=== PATIENT | male | born 2000 | race Caucasian/White ===

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

== ENCOUNTER 2019-02-24 08:16 | Emergency (ER) | payer MEDICAID, OTHER ==
[~2019-02-24] VITALS: Ht 172.7 cm; Wt 59.1 kg
[2019-02-24 09:37] VITALS: BP 135/76
[2019-02-24] MEDS ORDERED: DOXY100C43 PO (10:00)
== END 2019-02-24 10:31 | disposition home or self-care (01) ==
LOC: ER 08:17
DX: L03.012 Cellulitis of left finger (principal); J45.909 Unspecified asthma, uncomplicated; E11.9 Type 2 diabetes mellitus without complications; F12.90 Cannabis use, unspecified, uncomplicated; Z79.4 Long term (current) use of insulin; Z79.899 Other long term (current) drug therapy
CPT/HCPCS: 73140; 99283

== ENCOUNTER 2019-06-04 05:24 | Inpatient (IN) | payer MEDICAID, OTHER ==
[~2019-06-04] VITALS: Ht 172.7 cm; Wt 58.2 kg
[2019-06-04] MEDS ORDERED: normal saline 1000ml 1,000 ML IVB ONE (05:30)
[2019-06-04] MEDS ORDERED: ondansetron/PF 4mg/2ml inj IV STA (05:30)
[2019-06-04] MEDS ORDERED: normal saline 1000ml 1,000 ML IV ONE ×3 (05:40→06:10)
--- NOTE | 2019-06-04 06:07 | NUR ---
PT HAS 2 PATENT IV'S BUT NEITHER WILL PULL FOR BLOOD DRAW. PT APPEARS DEHYDRATED AND VEIN COLLAPSES WHEN TRYING TO PULL BLOOD. WILL ATTEMPT TO REDRAW AFTER PT HAS BEEN HYDRATED. PT HAS FLUIDS INFUSING ON PRESSURE BAG AT THIS TIME.
[2019-06-04] MEDS ORDERED: normal saline 1000ml 1,000 ML IV SCH ×2 (06:10→09:37)
[2019-06-04] MEDS ORDERED: insulin regular, human 10 units/0.1 ml syringe IV ONE (06:10)
[2019-06-04 06:38] LABS: BASOPHILS # (AUTO) 0.1 X10'3 (0-0.2); BASOPHILS % (AUTO) 0.5 % (0-1); EOSINOPHILS % (AUTO) 0.1 % (0-6); HEMATOCRIT 45.8 % (42.0-52.0); HEMOGLOBIN 15.5 g/dl (14.0-17.9); LYMPHOCYTES # (AUTO) 3.5 X10'3 (1.1-4.8); LYMPHOCYTES % (AUTO) 18.7 % (21-51); MEAN CORPUSCULAR HEMOGLOBIN 32.3 PG (27.0-31.0); MEAN CORPUSCULAR HGB CONC 33.8 g/dL (33.0-36.5); MEAN CORPUSCULAR VOLUME 95.6 FL (78-98); MEAN PLATELET VOLUME 8.8 FL (7.4-10.4); MONOCYTES % (AUTO) 5.3 % (2-12); NEUTROPHILS # (AUTO) 14.2 X10'3 (1.8-7.7); NEUTROPHILS % (AUTO) 75.4 % (42-75); PLATELET COUNT 405 X10'3 (140-440); RED BLOOD COUNT 4.79 X10'6 (4.70-6.10); RED CELL DISTRIBUTION WIDTH 13.2 % (11.5-14.5); WHITE BLOOD COUNT 18.8 X10'3 (4.5-11.0)
[2019-06-04] MEDS ORDERED: dextrose 50%-water 50ml dispensing syringe IV PRN (06:50)
[2019-06-04 06:54] LABS: ALANINE AMINOTRANSFERASE 22 U/L (12-78); ALBUMIN 2.7 G/DL (3.4-5.0); ALBUMIN/GLOBULIN RATIO 0.8 (1.1-1.5); ALKALINE PHOSPHATASE 128 IU/L (20-180); ANION GAP 28 (8-16); ASPARTATE AMINO TRANSFERASE 12 U/L (10-37); BILIRUBIN,TOTAL 0.5 MG/DL (0.1-1.0); BLOOD UREA NITROGEN 21 MG/DL (7-18); BUN/CREATININE RATIO 17.4 (5.4-32.0); CALCIUM 7.9 MG/DL (8.5-10.1); CHLORIDE 97 MMOL/L (99-107); CREATININE 1.21 MG/DL (0.60-1.10); GLUCOSE 477 MG/DL (70-104); LIPASE < 50 U/L (73-393); SODIUM 135 MMOL/L (135-145); TOTAL PROTEIN 6.1 G/DL (6.4-8.2); eGFR 77 ML/MIN
[2019-06-04 06:55] LABS: TOTAL CARBON DIOXIDE 10.4 MMOL/L (24-32)
[2019-06-04] MEDS: insulin regular, human 100 UNIT in normal saline 100ml IV soln 99 ML IV SCH ×4 (07:15→12:26)
[2019-06-04 07:22] LABS: CLARITY,URINE SLIGHTLY CLOUDY (Clear); COLOR,URINE STRAW (Yellow); GLUCOSE, URINE >=1000 mg/dl (Neg); KETONES,URINE >=80 mg/dl (Neg); LEUKOCYTE ESTERASE ,URINE NEGATIVE (Neg); NITRITES, URINE NEGATIVE (Neg); OCCULT BLOOD,URINE TRACE-LYSED (Neg); PH,URINE 5.5 (4.8-8.0); PROTEIN,URINE NEGATIVE (Neg); UROBILINOGEN,URINE 0.2 E.U/dL (0.2-1.0)
[2019-06-04 07:23] LABS: UA COLLECTION TYPE URINAL
[2019-06-04 07:28] LABS: BACTERIA,URINE FEW /HPF (Neg); FINE GRANULAR CAST 0-3 /LPF (NEGATIVE); MUCUS STRANDS FEW /LPF (Neg); SQUAMOUS EPITHELIAL CELL,UR FEW /LPF (FEW)
[2019-06-04 07:29] LABS: RBC,URINE 0-2 /HPF (0-2)
[2019-06-04 07:30] LABS: URINE AMPHETAMINE SCREEN NEGATIVE (Neg); URINE BARBITUATE SCREEN NEGATIVE (Neg); URINE BENZODIAZEPINES SCREEN NEGATIVE (Neg); URINE CANNABINOID SCREEN POSITIVE (Neg); URINE COCAINE SCREEN NEGATIVE (Neg); URINE METHADONE SCREEN NEGATIVE (Neg); URINE OPIATE SCREEN NEGATIVE (Neg); URINE PHENCYCLIDINE SCREEN NEGATIVE (Neg); YEAST MODERATE /HPF (NEGATIVE)
[2019-06-04 09:25] LABS: ALBUMIN 2.9 G/DL (3.4-5.0); ANION GAP 23 (8-16); BLOOD UREA NITROGEN 17 MG/DL (7-18); BUN/CREATININE RATIO 14.8 (5.4-32.0); CALCIUM 7.8 MG/DL (8.5-10.1); CHLORIDE 101 MMOL/L (99-107); CREATININE 1.15 MG/DL (0.60-1.10); GLUCOSE 313 MG/DL (70-104); POTASSIUM 4.3 MMOL/L (3.5-5.1); SODIUM 136 MMOL/L (135-145); eGFR 82 ML/MIN
[2019-06-04 09:28] LABS: TOTAL CARBON DIOXIDE 12.5 MMOL/L (24-32)
[2019-06-04] MEDS ORDERED: insulin regular, DKA only 100 UNIT in normal saline 100ml IV soln 99 ML IV SCH ×2 (09:37)
[2019-06-04] MEDS ORDERED: potassium CL 20mEq in D5-1/2NS 1,000 ML IV PRN (09:37)
[2019-06-04] MEDS ORDERED: potassium Cl 20 mEq SR tablet PO PRN ×2 (09:40)
[2019-06-04] MEDS ORDERED: magnesium hydroxide 30ml (MOM) UD suspension PO PRN (09:40)
[2019-06-04] MEDS ORDERED: sodium phosphate inj. 30 MMOL in dextrose 5%-water 250 ML IV PRN (09:40)
[2019-06-04] MEDS ORDERED: mag hydrox/Alum hydrox/simeth 30ml oral suspension PO PRN (09:40)
[2019-06-04] MEDS ORDERED: potassium CL 10mEq/100ml bag 100 ML IV PRN ×2 (09:40)
[2019-06-04] MEDS ORDERED: K and/or MAG REPLACEMENT MC SCH (09:40)
[2019-06-04] MEDS ORDERED: acetaminophen 325mg tablet PO PRN (09:40)
[2019-06-04] MEDS ORDERED: metoclopramide 5 mg/ml inj IV PRN (09:40)
[2019-06-04] MEDS ORDERED: Neutra Phos packet PO PRN (09:40)
[2019-06-04] MEDS ORDERED: sodium phosphate inj. 15 MMOL in dextrose 5%-water 150 ML IV PRN (09:40)
[2019-06-04] MEDS ORDERED: ondansetron/PF 4mg/2ml inj IV PRN (09:40)
--- NOTE | 2019-06-04 09:59 | NUR ---
SPOKE TO DR. DELGADILLO REGARDING INSULIN DRIP, FOR HIS ORDER OF 5ML/HR. THE ER ORDER IS 3ML/HR AND HIS BG HAS BEEN DROPPING 50-70UNITS/HR. HE AGREED TO KEEP THE RATE OF 3ML/HR.
[2019-06-04 10:26] LABS: PHOSPHORUS 2.9 MG/DL (2.3-4.5)
[2019-06-04] MEDS ORDERED: potassium CL 20mEq in D5-1/2NS 1,000 ML IV SCH (10:45)
--- NOTE | 2019-06-04 10:49 | NUR ---
Received report from Kari DAVIES. Awaiting patient arrival to U [id number].
[2019-06-04 11:00] VITALS: BP 109/57
[2019-06-04 11:01] LABS: HEMOGLOBIN A1C > 14.0 % (4.5-6.2)
--- NOTE | 2019-06-04 11:02 | NUR ---
Patient arrived to PCU 3025B. Transferred from ED [facility] to bed. Telemetry monitoring initiated. Vital signs: Temp 98.5, GE 94, RR; 18, O2 96% on room air, BP 111/57. Patient oriented to room and to call light. Patient NPO at this time. All immediate needs met.
[2019-06-04] MEDS ORDERED: insulin regular, human 100 UNIT in normal saline 100ml IV soln 99 ML IV SCH ×6 (12:35→16:15)
[2019-06-04 14:02] LABS: ANION GAP 14 (8-16); BLOOD UREA NITROGEN 12 MG/DL (7-18); BUN/CREATININE RATIO 11.3 (5.4-32.0); CALCIUM 8.2 MG/DL (8.5-10.1); CHLORIDE 102 MMOL/L (99-107); CREATININE 1.06 MG/DL (0.60-1.10); GLUCOSE 236 MG/DL (70-104); POTASSIUM 4.1 MMOL/L (3.5-5.1); SODIUM 136 MMOL/L (135-145); TOTAL CARBON DIOXIDE 19.9 MMOL/L (24-32); eGFR 90 ML/MIN
[2019-06-04 15:00] VITALS: BP 103/64
--- NOTE | 2019-06-04 16:00 | NUR ---
Per Dr. Schaffer: Decrease insulin gtt to 2 units per hour. Clear liquids for patient only. Continue DKA gtt protocol.
--- NOTE | 2019-06-04 17:12 | NUR ---
DM/Nicholas consult. Patient is a 18 year old homeless man,living mother's car, with known history of Type 1 DM, history of neuropathy, gastroparesis, and DKA. Per ED documentation patient has not measured his blood glucose in "months" and has not taken insulin for "a long time," pt reported excessive thirst. No change in weight per documented weight history, no edema, no malnutrition. RD visited patient at bedside. Pt reports no longer has Medi-Iain and can no longer get refill for insulin. States his insulin is lost in the car he lives in because it is "a mess," cannot see his doctor d/t lack of insurance. Cannot find glucometer in backpack in car either. Expresses frustration. Has not taken insulin for a significant amount of time. Likely poor access to food as well. coordinator of genetic services consulted already, placed additional consult with above details. Provided patient with written DM education handout with verbal review. Recommend: 1. advance diet as medically indicated to carb controlled 2. wt per rx Addendum: 06/04/19 at [address] Amended: Links added.
--- NOTE | 2019-06-04 18:30 | NUR ---
Patient left AMA. did not transfer care of patient.
--- NOTE | 2019-06-04 18:45 | NUR ---
Upon going into the patient's room to assess him, he had his IV pulled out, he was taking his monitor technician off, and was dressing to leave with his bag of belongings in hand. When questioned what he was doing he said that he is leaving AMA and he was educated about the risks of leaving under his physical condition and he says that he understands that and is going to leave anyway. His brother came in at this time to try to talk him into staying but then they started arguing and yelling at eachother in the hallway. Patient did agree to sign the AMA form. Security was called to escort them to the parking lot but they had already gone down.
--- NOTE | 2019-06-04 18:51 | NUR ---
promotional table spacer PAGER ID: [phone] MESSAGE: Patient Asael Monroe RM [id number] Patient left AMA despite being educated about his condition he refused to stay. Gemini DAVIES ext. [phone]
--- NOTE | 2019-06-04 19:01 | NUR ---
Dr. Segura night time hospitalist notified that patient left AMA.
[2019-06-04] MEDS ORDERED: heparin, porcine 5000 units/ml vial SQ SCH (20:00)
[2019-06-05] MEDS ORDERED: pneumococcal 23-VAL P-sac vacc 25 mcg/0.5ml vial IMVAC ONE (10:00)
[2019-06-05] MEDS ORDERED: FLU VACC QS2019-20 36MOS UP/PF 60 MCG/0.5 ML SYRINGE IMVAC ONE (10:00)
[2019-06-05] MEDS ORDERED: UNABLE TO OBTAIN (17:55)
== END 2019-06-04 18:45 | disposition left against medical advice (07) | DRG 420 ==
LOC: ER 05:25 → ED HOLD 10:48 → PCU 3S 11:03
PROVIDERS: ADMIT Family Medicine; ATTEND Family Medicine
DX: E10.10 Type 1 diabetes mellitus with ketoacidosis without coma (principal); N17.9 Acute kidney failure, unspecified; D72.829 Elevated white blood cell count, unspecified; E86.0 Dehydration; Z53.29 Procedure and treatment not carried out because of patient's decision for other reasons; F12.90 Cannabis use, unspecified, uncomplicated; J45.909 Unspecified asthma, uncomplicated; Z59.0 Homelessness; Z79.4 Long term (current) use of insulin; Z91.19 Patient's noncompliance with other medical treatment and regimen
CPT/HCPCS: 36415; 71045; 80048; 80053; 80305; 81001; 82009; 82800; 82948; 83036; 83690; 84100; 85025; 87077; 87081; 87088; 93005; 96361; 96374; 96375; 99291; G0378; J1815; J2405; J3480; J7030

== ENCOUNTER 2019-06-05 14:41 | Inpatient (IN) | payer MEDICAID, OTHER ==
[~2019-06-05] VITALS: Ht 172.7 cm; Wt 54.5 kg
[~2019-06-05 14:41] MED LIST changes: -BECL7.3A INH; +K and/or MAG REPLACEMENT MC SCH; -METH10TA4 PO; -MONT10TA21 PO; -NAPR-1154 PO; -NAPR-56 PO; -ONDA4TAB12 PO
[2019-06-05] MEDS ORDERED: normal saline 1000ML IV soln IV ONE (15:10)
[2019-06-05 16:01] LABS: PARTIAL THROMBOPLASTIN TIME 29 SECONDS (22-32)
[2019-06-05 16:02] LABS: ALANINE AMINOTRANSFERASE 29 U/L (12-78); ALBUMIN 3.6 G/DL (3.4-5.0); ALBUMIN/GLOBULIN RATIO 0.9 (1.1-1.5); ALKALINE PHOSPHATASE 138 IU/L (20-180); ANION GAP 25 (8-16); ASPARTATE AMINO TRANSFERASE 15 U/L (10-37); BILIRUBIN,TOTAL 0.6 MG/DL (0.1-1.0); BLOOD UREA NITROGEN 18 MG/DL (7-18); BUN/CREATININE RATIO 12.1 (5.4-32.0); CALCIUM 9.1 MG/DL (8.5-10.1); CHLORIDE 87 MMOL/L (99-107); CREATININE 1.49 MG/DL (0.60-1.10); POTASSIUM 5.3 MMOL/L (3.5-5.1); SODIUM 124 MMOL/L (135-145); TOTAL PROTEIN 7.7 G/DL (6.4-8.2); eGFR 61 ML/MIN
[2019-06-05 16:08] LABS: CLARITY,URINE CLEAR (Clear); COLOR,URINE STRAW (Yellow); GLUCOSE, URINE >=1000 mg/dl (Neg); KETONES,URINE >=80 mg/dl (Neg); LEUKOCYTE ESTERASE ,URINE NEGATIVE (Neg); NITRITES, URINE NEGATIVE (Neg); OCCULT BLOOD,URINE NEGATIVE (Neg); PH,URINE 5.5 (4.8-8.0); PROTEIN,URINE NEGATIVE (Neg); UROBILINOGEN,URINE 0.2 E.U/dL (0.2-1.0)
[2019-06-05 16:14] LABS: UA COLLECTION TYPE URINAL
[2019-06-05 16:19] LABS: BASOPHILS % (AUTO) 0.3 % (0-1); EOSINOPHILS % (AUTO) 0.1 % (0-6); HEMOGLOBIN 16.6 g/dl (14.0-17.9); LYMPHOCYTES # (AUTO) 1.5 X10'3 (1.1-4.8); LYMPHOCYTES % (AUTO) 13.5 % (21-51); MEAN CORPUSCULAR HEMOGLOBIN 32.2 PG (27.0-31.0); MEAN CORPUSCULAR HGB CONC 33.8 g/dL (33.0-36.5); MEAN PLATELET VOLUME 9.2 FL (7.4-10.4); MONOCYTES # (AUTO) 0.4 X10'3 (0-0.9); MONOCYTES % (AUTO) 3.5 % (2-12); NEUTROPHILS # (AUTO) 9.3 X10'3 (1.8-7.7); NEUTROPHILS % (AUTO) 82.6 % (42-75); PLATELET COUNT 386 X10'3 (140-440); RED BLOOD COUNT 5.15 X10'6 (4.70-6.10); RED CELL DISTRIBUTION WIDTH 13.7 % (11.5-14.5); WHITE BLOOD COUNT 11.2 X10'3 (4.5-11.0)
[2019-06-05 16:23] LABS: GLUCOSE 846 MG/DL (70-104); TOTAL CARBON DIOXIDE 12.3 MMOL/L (24-32)
[2019-06-05 16:32] LABS: MEAN CORPUSCULAR VOLUME 95.1 FL (78-98)
[2019-06-05] MEDS ORDERED: insulin regular, human 10 units/0.1 ml syringe IV ONE (16:40)
[2019-06-05] MEDS ORDERED: normal saline 1000ML IV soln IVB ONE (16:45)
[2019-06-05 16:53] LABS: MUCUS STRANDS MODERATE /LPF (Neg); SQUAMOUS EPITHELIAL CELL,UR FEW /LPF (FEW)
[2019-06-05 16:55] LABS: WBC,URINE 0-4 /HPF (0-4)
[2019-06-05 16:56] LABS: BACTERIA,URINE FEW /HPF (Neg); YEAST FEW /HPF (NEGATIVE)
[2019-06-05] MEDS ORDERED: potassium CL 20mEq in D5-1/2NS 1,000 ML IV PRN (16:57)
[2019-06-05] MEDS ORDERED: sodium bicarbonate (8.4%) inj. 100 MEQ in dextrose 5% water 500ml 500 ML IV PRN ×2 (16:57→17:57)
[2019-06-05] MEDS ORDERED: insulin regular, DKA only 100 UNIT in normal saline 100ml IV soln 99 ML IV SCH ×4 (16:57→17:57)
[2019-06-05] MEDS ORDERED: sodium bicarbonate (8.4%) inj. 50 MEQ in dextrose 5% water 500ml 250 ML IV PRN ×2 (16:57→17:57)
[2019-06-05 17:00] LABS: RBC,URINE NONE SEEN /HPF (0-2)
[2019-06-05] MEDS ORDERED: sodium phosphate inj. 15 MMOL in dextrose 5%-water 150 ML IV PRN ×2 (17:00→18:00)
[2019-06-05] MEDS ORDERED: potassium CL 10mEq/100ml bag 100 ML IV PRN ×4 (17:00→18:00)
[2019-06-05] MEDS ORDERED: sodium phosphate inj. 30 MMOL in dextrose 5%-water 250 ML IV PRN ×2 (17:00→18:00)
[2019-06-05] MEDS ORDERED: insulin regular, human vial - multi-dose IV PRN ×2 (17:00→18:00)
[2019-06-05] MEDS ORDERED: Neutra Phos packet PO PRN (17:00)
[2019-06-05] MEDS ORDERED: potassium Cl 20 mEq SR tablet PO PRN ×3 (17:00→18:00)
--- NOTE | 2019-06-05 17:11 | NUR ---
CALLED PHARMACY ABOUT INSULIN GTT AND STATED MAKING NOW AND WILL BRING DOWN ONCE COMPLETED.
[2019-06-05] MEDS ORDERED: UNABLE TO OBTAIN (17:55)
[2019-06-05 17:58] LABS: ANION GAP 25 (8-16); BLOOD UREA NITROGEN 18 MG/DL (7-18); BUN/CREATININE RATIO 14.2 (5.4-32.0); CALCIUM 7.8 MG/DL (8.5-10.1); CHLORIDE 97 MMOL/L (99-107); CREATININE 1.27 MG/DL (0.60-1.10); PHOSPHORUS 3.3 MG/DL (2.3-4.5); POTASSIUM 4.2 MMOL/L (3.5-5.1); SODIUM 130 MMOL/L (135-145); eGFR 73 ML/MIN
[2019-06-05 18:04] LABS: TOTAL CARBON DIOXIDE 7.6 MMOL/L (24-32)
[2019-06-05 18:05] LABS: GLUCOSE 611 MG/DL (70-104)
[2019-06-05 18:11] LABS: URINE AMPHETAMINE SCREEN POSITIVE (Neg); URINE BARBITUATE SCREEN NEGATIVE (Neg); URINE BENZODIAZEPINES SCREEN NEGATIVE (Neg); URINE CANNABINOID SCREEN NEGATIVE (Neg); URINE COCAINE SCREEN NEGATIVE (Neg); URINE METHADONE SCREEN NEGATIVE (Neg); URINE OPIATE SCREEN NEGATIVE (Neg); URINE PHENCYCLIDINE SCREEN NEGATIVE (Neg)
[2019-06-05] MEDS: normal saline 1000ml 1,000 ML IV SCH ×4 (18:13→22:15)
--- NOTE | 2019-06-05 20:06 | NUR ---
PT HAS NOT HAD MIXED VENOUS COLLECTED. PT DOES NOT HAVE CENTRAL LINE AND CANNOT BE COLLECTED. ORDERD CHANGED TO ABG AND RT NOTIFIED. BLOOD GAS VALUES NEEDED TO COMPLETE THE DKA ORDER SET.
[2019-06-05 20:16] LABS: ABG BASE EXCESS -13.6 mmol/L (-2.0-3.0); ABG HCO3 10.7 mmol/L (22.0-26.0); ABG OXYGEN SATURATION 97.3 % (95-98); ABG PCO2 (T) 22.7 mmHg (35.0-45.0); ABG PH (T) 7.292 (7.350-7.450); ABG PO2 (T) 98.8 mmHg (83-108); ALLEN'S TEST Positive; FCOHb 0.8 % (0.5-1.5); FMetHb 0.1 % (0.3-1.12); FO2Hb 96.4 % (94-100); TOTAL HEMOGLOBIN 15.2 G/dl (14.0-17.9)
--- NOTE | 2019-06-05 20:44 | NUR ---
report given to wilma. hr 106, otherwise vss. pt is polite and cooperative. bloodsugar 330. remains on insulin gtt at 5 ml/hr. cmp draw due at 2100.
[2019-06-05 20:50] VITALS: BP 120/70
--- NOTE | 2019-06-05 21:55 | NUR ---
Arrived to PCU unit @ 2044. The patient came with an insulin gtt@5mls/hr, NS@250 ml/hr, and NS bolus pressure bag. Patient is cooperative, A&Ox4, and vital signs are stable. He complains of fatigue and nausea. Will continue to monitor.
[2019-06-05 22:00] VITALS: BP 118/67
[2019-06-05] MEDS ORDERED: ondansetron/PF 4mg/2ml inj IV PRN (22:00)
[2019-06-05] MEDS ORDERED: dextrose 5%-1/2 normal saline 1,000 ML IV SCH (22:50)
[2019-06-05 23:12] LABS: ALANINE AMINOTRANSFERASE 21 U/L (12-78); ALBUMIN 2.7 G/DL (3.4-5.0); ALBUMIN/GLOBULIN RATIO 0.8 (1.1-1.5); ALKALINE PHOSPHATASE 111 IU/L (20-180); ANION GAP 11 (8-16); ASPARTATE AMINO TRANSFERASE 12 U/L (10-37); BILIRUBIN,TOTAL 0.4 MG/DL (0.1-1.0); BLOOD UREA NITROGEN 13 MG/DL (7-18); BUN/CREATININE RATIO 13.5 (5.4-32.0); CALCIUM 7.9 MG/DL (8.5-10.1); CHLORIDE 103 MMOL/L (99-107); CREATININE 0.96 MG/DL (0.60-1.10); GLUCOSE 206 MG/DL (70-104); MAGNESIUM 1.5 MG/DL (1.5-2.4); POTASSIUM 3.6 MMOL/L (3.5-5.1); SODIUM 134 MMOL/L (135-145); TOTAL CARBON DIOXIDE 19.8 MMOL/L (24-32); TOTAL PROTEIN 5.9 G/DL (6.4-8.2); eGFR > 90 ML/MIN
[2019-06-06] MEDS: HYDROcodone/acetaminophen 5mg/325mg tablet PO PRN ×3 (00:27→08:48)
[2019-06-06] MEDS: potassium CL 20mEq in D5-1/2NS 1,000 ML IV PRN ×3 (01:11→09:49)
[2019-06-06 01:42] LABS: BASOPHILS # (AUTO) 0.1 X10'3 (0-0.2); BASOPHILS % (AUTO) 0.6 % (0-1); EOSINOPHILS # (AUTO) 0.1 X10'3 (0-0.9); EOSINOPHILS % (AUTO) 0.8 % (0-6); HEMATOCRIT 41.7 % (42.0-52.0); LYMPHOCYTES # (AUTO) 3.4 X10'3 (1.1-4.8); MEAN CORPUSCULAR HEMOGLOBIN 32.8 PG (27.0-31.0); MEAN CORPUSCULAR HGB CONC 35.9 g/dL (33.0-36.5); MEAN CORPUSCULAR VOLUME 91.3 FL (78-98); MEAN PLATELET VOLUME 8.4 FL (7.4-10.4); MONOCYTES # (AUTO) 0.8 X10'3 (0-0.9); MONOCYTES % (AUTO) 8.3 % (2-12); NEUTROPHILS # (AUTO) 5.4 X10'3 (1.8-7.7); NEUTROPHILS % (AUTO) 55.3 % (42-75); PLATELET COUNT 349 X10'3 (140-440); RED BLOOD COUNT 4.57 X10'6 (4.70-6.10); RED CELL DISTRIBUTION WIDTH 13.4 % (11.5-14.5); WHITE BLOOD COUNT 9.7 X10'3 (4.5-11.0)
[2019-06-06 01:53] LABS: ALBUMIN 2.6 G/DL (3.4-5.0); ANION GAP 9 (8-16); BLOOD UREA NITROGEN 10 MG/DL (7-18); BUN/CREATININE RATIO 12.2 (5.4-32.0); CALCIUM 7.8 MG/DL (8.5-10.1); CHLORIDE 104 MMOL/L (99-107); CREATININE 0.82 MG/DL (0.60-1.10); GLUCOSE 154 MG/DL (70-104); PHOSPHORUS 1.9 MG/DL (2.3-4.5); POTASSIUM 3.3 MMOL/L (3.5-5.1); SODIUM 133 MMOL/L (135-145); eGFR > 90 ML/MIN
[2019-06-06 02:00] VITALS: BP 106/68
[2019-06-06] MEDS: potassium Cl 20 mEq SR tablet PO PRN ×2 (03:25→08:46)
--- NOTE | 2019-06-06 06:25 | NUR ---
Problems reprioritized. Patient report given, questions answered & plan of care reviewed with SAMSON Quintero and Luda galeas.
--- NOTE | 2019-06-06 06:26 | NUR ---
Patient in room PCU 3019. I have received report from Breanna DAVIES and had the opportunity to ask questions and assume patient care.
[2019-06-06 07:00] VITALS: BP 100/63
[2019-06-06] MEDS ORDERED: K and/or MAG REPLACEMENT MC SCH (08:00)
[2019-06-06] MEDS: Neutra Phos packet PO PRN ×2 (09:46→14:04)
[2019-06-06 09:48] LABS: ALANINE AMINOTRANSFERASE 20 U/L (12-78); ALBUMIN 2.5 G/DL (3.4-5.0); ALBUMIN/GLOBULIN RATIO 0.8 (1.1-1.5); ALKALINE PHOSPHATASE 96 IU/L (20-180); ANION GAP 9 (8-16); ASPARTATE AMINO TRANSFERASE 16 U/L (10-37); BILIRUBIN,TOTAL 0.3 MG/DL (0.1-1.0); BLOOD UREA NITROGEN 7 MG/DL (7-18); BUN/CREATININE RATIO 8.9 (5.4-32.0); CALCIUM 8.2 MG/DL (8.5-10.1); CHLORIDE 104 MMOL/L (99-107); CREATININE 0.79 MG/DL (0.60-1.10); GLUCOSE 192 MG/DL (70-104); SODIUM 133 MMOL/L (135-145); TOTAL CARBON DIOXIDE 19.8 MMOL/L (24-32); TOTAL PROTEIN 5.6 G/DL (6.4-8.2); eGFR > 90 ML/MIN
[2019-06-06 09:50] LABS: POTASSIUM 4.1 MMOL/L (3.5-5.1)
[2019-06-06] MEDS ORDERED: pneumococcal 23-VAL P-sac vacc 25 mcg/0.5ml vial IMVAC ONE (10:00)
[2019-06-06] MEDS ORDERED: FLU VACC QS2019-20 36MOS UP/PF 60 MCG/0.5 ML SYRINGE IMVAC ONE ×2 (10:00→14:30)
[2019-06-06 11:00] VITALS: BP 98/59
[2019-06-06 11:49] LABS: ALANINE AMINOTRANSFERASE 18 U/L (12-78); ALBUMIN 2.4 G/DL (3.4-5.0); ALBUMIN/GLOBULIN RATIO 0.8 (1.1-1.5); ALKALINE PHOSPHATASE 90 IU/L (20-180); ANION GAP 5 (8-16); ASPARTATE AMINO TRANSFERASE 10 U/L (10-37); BILIRUBIN,TOTAL 0.4 MG/DL (0.1-1.0); BLOOD UREA NITROGEN 6 MG/DL (7-18); BUN/CREATININE RATIO 8.2 (5.4-32.0); CALCIUM 8.4 MG/DL (8.5-10.1); CHLORIDE 106 MMOL/L (99-107); CREATININE 0.73 MG/DL (0.60-1.10); GLUCOSE 153 MG/DL (70-104); POTASSIUM 3.9 MMOL/L (3.5-5.1); SODIUM 136 MMOL/L (135-145); TOTAL CARBON DIOXIDE 24.8 MMOL/L (24-32); TOTAL PROTEIN 5.4 G/DL (6.4-8.2); eGFR > 90 ML/MIN
[2019-06-06] MEDS ORDERED: dextrose ORAL solution 15 GM/59 ML bottle PO PRN ×2 (12:35)
[2019-06-06] MEDS ORDERED: insulin Lispro (HumaLOG) vial - multi-dose SQ SCH (12:35)
[2019-06-06] MEDS ORDERED: glucagon, human recombinant 1mg kit SUBCUT PRN (12:35)
[2019-06-06] MEDS ORDERED: dextrose 50%-water 50ml dispensing syringe IV PRN ×2 (12:35)
--- NOTE | 2019-06-06 14:30 | NUR ---
Initial: Pt readmitted for DKA, recently left AMA on 06/04. DM education provided 06/04 prior to pt leaving A. Per MD, pt does not have access to insulin d/t financial and social issues. Pt hx homeless, living in car with mother, and pt reports no longer having Medi-Iain on last admit. 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 Pt currently on a full liquid diet, no documented PO intake at this time. LBM 06/03. Will continue to monitor. Recommendation: 1. advance diet as medically indicated per MD to carb controlled 2. hyperglycemic protocol 3. bowel care as needed 4. weight per rx Addendum: 06/06/19 at 1431 by Wing Edmundo DUPONT Amended: Links added. Addendum: 06/06/19 at 1710 [address] César [address]er [address] CRESENCIO Dennison
--- NOTE | 2019-06-06 14:30 | NUR ---
Nurses aid asked me to come assess the pt. Pt asking to leave AMA, agitated, tore out IVs and dripping blood on the floor. Educated on the risks of leaving AMA w/ his still not stable blood sugars and asked if there was anything we could do to convince him to stay. Pt stated, "I just want to see my mom". Educated on his resources and tried to give materials regarding the hope van. Stated, "I am gonna go to the longterm and get it firgured out". Left the unit at 1435.
--- NOTE | 2019-06-06 14:48 | NUR ---
Orientee documentation: I have reviewed and agree with all interventions, assessments performed and documented by SAMSON Perez.
--- NOTE | 2019-06-06 14:49 | NUR ---
[place]rient[place] Medication Administration: For this medication-pass time frame, all medication were reviewed, dispensed, administered and documented per hospital policy by SAMSON Perez.
--- NOTE | 2019-06-06 15:39 | NUR ---
Social work note: Visited Ct approx. 11 am per Jared Segura MD notation of suicidal ideation. Present were Ct, this MACHINE SOLE LEVELER Showroom Sales Consultant, Hayley Perry LCSW. Ct was presented with limits of confidentiality. Ct affirmed. Ct assessed as able to give informed consent and gave consent. Ct gave clear consent for [facility] staff to speak with his mother, Mago Saenz, who was a patient on another floor. Ct consent to this twice. [facility] staff conducted SI screen, [place] Suicide Severity Rating Scale. Ct answers: wish to be , no; current thoughts of wanting to kill themselves, no; preparation to suicide or end life, no. Brief bio/psycho/social information solicited. Ct states he has no recollection of ED or states he made in ED: "vague". Ct stated the reason he is here is because he does not take care of his diabetes and is 'doing too much dope". Ct states he last used 7 days prior. [address] reports he is homeless, lives in car with mom, this started three months ago after mother lost HUD apartment. Ct indicated mom has HUD voucher and they are looking for a new place. [facility] staff asked Ct were he receives medical services, and Ct indicated he receives his scripts from [facility]. Jay Perry LCSW and asked if Ct would be interested in Whole Person Care or similar. Ct said yes. Ct indicated he wanted to see his mom. Ct was tearful at end of conversation. [facility] staff to follow up with mom regarding housing.
--- NOTE | 2019-06-06 15:54 | NUR ---
Social work note: Visited Ct approx. 1:50 pm while on floor to serve other clients. Ct was in process of leaving AMA. Ct stated he is leaving for [facility]. Ct requested information on the Hope Van so he can get his insuline. When this SCIENTIST/ENGINEER Rental Clerk returned with Hope Van information, was told Ct was in mom's room. This SCIENTIST/ENGINEER Rental Clerk went to mom's room to deliver Hope Van information, left information with mom as Ct was not present. This SCIENTIST/ENGINEER Rental Clerk checked in with charge nurse before entering and when leaving.
[2019-06-06] MEDS ORDERED: insulin glargine (Lantus) pen - multi-dose SQ SCH (21:00)
== END 2019-06-06 15:04 | disposition left against medical advice (07) | DRG 420 ==
LOC: ER 14:41 → ED HOLD 18:01 → PCU 3S 21:00
PROVIDERS: ADMIT Internal Medicine; ATTEND Internal Medicine
DX: E10.10 Type 1 diabetes mellitus with ketoacidosis without coma (principal); E87.0 Hyperosmolality and hypernatremia; D72.829 Elevated white blood cell count, unspecified; F12.90 Cannabis use, unspecified, uncomplicated; Z53.29 Procedure and treatment not carried out because of patient's decision for other reasons; J45.909 Unspecified asthma, uncomplicated; Z79.4 Long term (current) use of insulin; Z59.0 Homelessness; Z91.19 Patient's noncompliance with other medical treatment and regimen
CPT/HCPCS: 36415; 36600; 71045; 76937; 80048; 80053; 80305; 81001; 82803; 82948; 83605; 83735; 84100; 84145; 85018; 85025; 85610; 85730; 87040; 87081; 93005; 96361; 96365; 96376; 99285; G0378; J1815; J2405; J3480; J7030; J7060; Q2037

== ENCOUNTER 2019-06-07 11:04 | Emergency (ER) | payer MEDICAID, OTHER ==
[~2019-06-07 11:04] MED LIST changes: -K and/or MAG REPLACEMENT MC SCH; +UNABLE TO OBTAIN
== END 2019-06-07 12:05 | disposition left against medical advice (07) ==
LOC: ER 11:04
DX: Z00.00 Encounter for general adult medical examination without abnormal findings (principal); Z53.21 Procedure and treatment not carried out due to patient leaving prior to being seen by health care provider

== ENCOUNTER 2020-01-22 22:17 | Emergency (ER) | payer MEDICAID, OTHER ==
[~2020-01-22] VITALS: Ht 177.8 cm; Wt 59.1 kg
[2020-01-22 23:38] VITALS: BP 114/76
[2020-01-22] MEDS ORDERED: silver sulfadiazine cream 400gm jar TP STA (23:47)
[2020-01-22] MEDS ORDERED: silver sulfadiazine cream 50gm TP STA (23:49)
[2020-01-22] MEDS ORDERED: TETanus/Pertussis (Acell)/Diphther VAC/PF (Tdap-Adult) 0.5ml syringe IMVAC ONE (23:50)
[2020-01-23 00:09] LABS: BASOPHILS % (AUTO) 0.3 % (0-1); EOSINOPHILS % (AUTO) 0 % (0-6); LYMPHOCYTES # (AUTO) 2.2 X10'3 (1.1-4.8); LYMPHOCYTES % (AUTO) 17.8 % (21-51); MEAN CORPUSCULAR HEMOGLOBIN 33.2 PG (27.0-31.0); MEAN CORPUSCULAR VOLUME 97.5 FL (78-98); MEAN PLATELET VOLUME 8.9 FL (7.4-10.4); MONOCYTES # (AUTO) 0.4 X10'3 (0-0.9); MONOCYTES % (AUTO) 2.9 % (2-12); PLATELET COUNT 338 X10'3 (140-440); RED BLOOD COUNT 4.82 X10'6 (4.70-6.10); RED CELL DISTRIBUTION WIDTH 14.3 % (11.5-14.5); WHITE BLOOD COUNT 12.7 X10'3 (4.5-11.0)
[2020-01-23 00:23] LABS: ALANINE AMINOTRANSFERASE 53 U/L (12-78); ALBUMIN 4.1 G/DL (3.4-5.0); ALBUMIN/GLOBULIN RATIO 1.1 (1.1-1.5); ALKALINE PHOSPHATASE 131 IU/L (20-180); ANION GAP 25 (8-16); ASPARTATE AMINO TRANSFERASE 21 U/L (10-37); BILIRUBIN,TOTAL 0.6 MG/DL (0.1-1.0); BLOOD UREA NITROGEN 18 MG/DL (7-18); BUN/CREATININE RATIO 17.3 (5.4-32.0); CALCIUM 9.2 MG/DL (8.5-10.1); CHLORIDE 89 MMOL/L (99-107); CREATININE 1.04 MG/DL (0.60-1.10); GLUCOSE 434 MG/DL (70-104); POTASSIUM 4.4 MMOL/L (3.5-5.1); SODIUM 129 MMOL/L (135-145); TOTAL CARBON DIOXIDE 15.5 MMOL/L (24-32); TOTAL PROTEIN 7.9 G/DL (6.4-8.2); eGFR > 90 ML/MIN
--- NOTE | 2020-01-23 00:30 | NUR ---
MONIK Alford went in to talk to patient about needing an IV with fluids d/t results of BMP. While MONIK was in the room patient stated he was not going to take any IV and wanted to leave. Patient was educated on the risk of leaving without treatment and he insisted he was going to go no matter what. Patient then proceeded to leave the ER against medical advice
== END 2020-01-23 00:35 | disposition home or self-care (01) ==
LOC: ER 22:18
DX: T23.202A Burn of second degree of left hand, unspecified site, initial encounter (principal); T23.201A Burn of second degree of right hand, unspecified site, initial encounter; T21.21XA Burn of second degree of chest wall, initial encounter; F15.90 Other stimulant use, unspecified, uncomplicated; E11.65 Type 2 diabetes mellitus with hyperglycemia; J45.909 Unspecified asthma, uncomplicated; F12.90 Cannabis use, unspecified, uncomplicated; Z79.4 Long term (current) use of insulin
CPT/HCPCS: 36415; 80053; 82948; 85025; 90471; 90715; 99283

== ENCOUNTER 2020-02-09 23:37 | Emergency (ER) | payer MEDICAID ==
[~2020-02-09] VITALS: Ht 172.7 cm; Wt 47.8 kg
[2020-02-09 23:45] VITALS: BP 122/83
[2020-02-10] MEDS ORDERED: LIDOcaine 1% W/epiNEPHrine 1:200,000 10ml vial IJ ONE (00:05)
[2020-02-10 00:21] LABS: BASOPHILS % (AUTO) 0.6 % (0-1); EOSINOPHILS % (AUTO) 0.3 % (0-6); HEMATOCRIT 40.5 % (42.0-52.0); HEMOGLOBIN 13.8 g/dl (14.0-17.9); LYMPHOCYTES # (AUTO) 1.9 X10'3 (1.1-4.8); LYMPHOCYTES % (AUTO) 29.6 % (21-51); MEAN CORPUSCULAR HEMOGLOBIN 33.1 PG (27.0-31.0); MEAN CORPUSCULAR HGB CONC 34.1 g/dL (33.0-36.5); MEAN CORPUSCULAR VOLUME 97.1 FL (78-98); MEAN PLATELET VOLUME 8.9 FL (7.4-10.4); MONOCYTES # (AUTO) 0.4 X10'3 (0-0.9); MONOCYTES % (AUTO) 6.9 % (2-12); NEUTROPHILS % (AUTO) 62.6 % (42-75); PLATELET COUNT 256 X10'3 (140-440); RED BLOOD COUNT 4.18 X10'6 (4.70-6.10); WHITE BLOOD COUNT 6.5 X10'3 (4.5-11.0)
--- NOTE | 2020-02-10 00:21 | NUR ---
PATIENT REFUSING TX, STATING THAT HE JUST WANTS THE PRESCRIPTION AND THEN HE WILL GO
--- NOTE | 2020-02-10 00:30 | NUR ---
PATIENT REFUSING CARE, DOES NOT WANT HYPERGLYCEMIA TREATED, "JUST WANT ABX SO HE CAN GO" REFUSING I & D TX, AWARE.
[2020-02-10 00:37] LABS: ALANINE AMINOTRANSFERASE 29 U/L (12-78); ALBUMIN 3.2 G/DL (3.4-5.0); ALBUMIN/GLOBULIN RATIO 0.9 (1.1-1.5); ALKALINE PHOSPHATASE 112 IU/L (20-180); ANION GAP 5 (8-16); ASPARTATE AMINO TRANSFERASE 24 U/L (10-37); BILIRUBIN,TOTAL 0.3 MG/DL (0.1-1.0); BLOOD UREA NITROGEN 9 MG/DL (7-18); BUN/CREATININE RATIO 10.1 (5.4-32.0); CALCIUM 9.1 MG/DL (8.5-10.1); CHLORIDE 89 MMOL/L (99-107); CREATININE 0.89 MG/DL (0.60-1.10); POTASSIUM 3.8 MMOL/L (3.5-5.1); SODIUM 125 MMOL/L (135-145); TOTAL CARBON DIOXIDE 31.3 MMOL/L (24-32); TOTAL PROTEIN 6.9 G/DL (6.4-8.2); eGFR > 90 ML/MIN
--- NOTE | 2020-02-10 00:41 | NUR ---
PATIENT WALKED OUT OF ER WITHOUT RECEIVING ABX OR RX. AWARE
[2020-02-10 00:51] LABS: GLUCOSE 852 MG/DL (70-104)
== END 2020-02-10 00:58 | disposition left against medical advice (07) ==
LOC: ER 23:38
DX: K61.1 Rectal abscess (principal); F15.90 Other stimulant use, unspecified, uncomplicated; E11.65 Type 2 diabetes mellitus with hyperglycemia; J45.909 Unspecified asthma, uncomplicated; F12.90 Cannabis use, unspecified, uncomplicated; Z79.4 Long term (current) use of insulin; Z79.899 Other long term (current) drug therapy
CPT/HCPCS: 36415; 80053; 82948; 84145; 85025; 87040; 99283

== ENCOUNTER 2020-02-12 17:37 | Emergency (ER) | payer MEDICAID ==
[~2020-02-12] VITALS: Ht 172.7 cm; Wt 50.9 kg
[2020-02-12 17:48] VITALS: BP 125/83
--- NOTE | 2020-02-12 20:31 | NUR ---
pt wants to leave because hes in so much pain, i explained to him that if he leaves it wont get any better so its better if he stays so we can help him. he aggred to stay at this time
[2020-02-12] MEDS ORDERED: AMOX-422 PO (20:58)
[2020-02-12] MEDS ORDERED: amox tr/potassium clavulanate 875/125mg TAB PO ONE (21:00)
== END 2020-02-12 21:50 | disposition home or self-care (01) ==
LOC: ER 17:38
DX: K61.1 Rectal abscess (principal); J45.909 Unspecified asthma, uncomplicated; E11.9 Type 2 diabetes mellitus without complications; F12.90 Cannabis use, unspecified, uncomplicated; F15.90 Other stimulant use, unspecified, uncomplicated; Z79.2 Long term (current) use of antibiotics; Z79.4 Long term (current) use of insulin
CPT/HCPCS: 10060; 46040; 99283; 99284

== ENCOUNTER 2020-02-16 23:23 | Inpatient (IN) | payer MEDICAID ==
[~2020-02-16] VITALS: Ht 172.7 cm; Wt 50.0 kg
[~2020-02-16 23:23] MED LIST changes: +AMOX-422 PO
[2020-02-16] MEDS ORDERED: ketorolac trometh inj. 60 MG/2 ML VIAL IM ONE (23:35)
--- NOTE | 2020-02-16 23:36 | NUR ---
dr. davidson at bedside assessing patient
[2020-02-16 23:41] LABS: BASOPHILS # (AUTO) 0.1 X10'3 (0-0.2); EOSINOPHILS % (AUTO) 0 % (0-6); HEMOGLOBIN 15.1 g/dl (14.0-17.9); LYMPHOCYTES # (AUTO) 3.3 X10'3 (1.1-4.8)
[2020-02-16 23:42] LABS: BASOPHILS % (AUTO) 0.6 % (0-1); HEMATOCRIT 44.8 % (42.0-52.0); LYMPHOCYTES % (AUTO) 17.8 % (21-51); MEAN CORPUSCULAR HEMOGLOBIN 32.5 PG (27.0-31.0); MEAN CORPUSCULAR HGB CONC 33.7 g/dL (33.0-36.5); MEAN CORPUSCULAR VOLUME 96.6 FL (78-98); MEAN PLATELET VOLUME 8.1 FL (7.4-10.4); MONOCYTES # (AUTO) 1.6 X10'3 (0-0.9); MONOCYTES % (AUTO) 8.8 % (2-12); NEUTROPHILS # (AUTO) 13.6 X10'3 (1.8-7.7); NEUTROPHILS % (AUTO) 72.8 % (42-75); PLATELET COUNT 662 X10'3 (140-440); RED BLOOD COUNT 4.63 X10'6 (4.70-6.10); RED CELL DISTRIBUTION WIDTH 15.8 % (11.5-14.5); WHITE BLOOD COUNT 18.7 X10'3 (4.5-11.0)
[2020-02-16] MEDS ORDERED: ketorolac tromethamine 15mg/ml inj. IM ONE (23:45)
[2020-02-16 23:53] LABS: ALANINE AMINOTRANSFERASE 29 U/L (12-78); ALBUMIN/GLOBULIN RATIO 0.6 (1.1-1.5); ALKALINE PHOSPHATASE 151 IU/L (20-180); ANION GAP 20 (8-16); ASPARTATE AMINO TRANSFERASE 6 U/L (10-37); BILIRUBIN,TOTAL 0.6 MG/DL (0.1-1.0); BLOOD UREA NITROGEN 17 MG/DL (7-18); BUN/CREATININE RATIO 13.1 (5.4-32.0); CALCIUM 9.3 MG/DL (8.5-10.1); CHLORIDE 92 MMOL/L (99-107); GLUCOSE 343 MG/DL (70-104); POTASSIUM 3.8 MMOL/L (3.5-5.1); SODIUM 128 MMOL/L (135-145); TOTAL CARBON DIOXIDE 16.2 MMOL/L (24-32); TOTAL PROTEIN 7.9 G/DL (6.4-8.2); eGFR 70 ML/MIN
[2020-02-17] MEDS ORDERED: normal saline 1000ML IV soln IVB ONE (00:20)
[2020-02-17] MEDS ORDERED: CefTRIAXone 2gm/D5W 50ml 50 ML IV ONE (02:45)
[2020-02-17] MEDS ORDERED: vancomycin/NS 1 GM ADD-VANTAGE 250 ML IV ONE (02:45)
[2020-02-17] MEDS ORDERED: iohexol 300mg/ml 100ml inj. ONE (02:51)
[2020-02-17] MEDS ORDERED: insulin regular, human U-100 3ml vial - multi-dose IV PRN (03:20)
[2020-02-17 03:39] LABS: PHOSPHORUS 3.7 MG/DL (2.3-4.5)
[2020-02-17] MEDS ORDERED: Neutra Phos packet PO PRN (03:45)
[2020-02-17] MEDS ORDERED: ondansetron/PF 4mg/2ml inj IV PRN (03:45)
[2020-02-17] MEDS ORDERED: magnesium Cl slow-release 64mg tablet PO PRN (03:45)
[2020-02-17] MEDS ORDERED: HYDROcodone/acetaminophen 5mg/325mg tablet PO PRN (03:45)
[2020-02-17] MEDS ORDERED: sodium phosphate inj. 30 MMOL in dextrose 5%-water 250 ML IV PRN (03:45)
[2020-02-17] MEDS ORDERED: magnesium hydroxide 30ml (MOM) UD suspension PO PRN (03:45)
[2020-02-17] MEDS ORDERED: sodium phosphate inj. 15 MMOL in dextrose 5%-water 250 ML IV PRN (03:45)
[2020-02-17] MEDS ORDERED: mag hydrox/Alum hydrox/simeth 30ml oral suspension PO PRN (03:45)
[2020-02-17] MEDS ORDERED: potassium CL 10mEq/100ml bag 100 ML IV PRN ×4 (03:45)
[2020-02-17] MEDS ORDERED: potassium CL 20mEq in D5-1/2NS 1,000 ML IV PRN (03:45)
[2020-02-17] MEDS ORDERED: magnesium 2GM in 50ml NS 50 ML IV PRN (03:45)
[2020-02-17] MEDS ORDERED: magnesium 4gm in 100ml NS 100 ML IV PRN (03:45)
[2020-02-17] MEDS ORDERED: Insulin Reg/NS 100units/100mL 100 ML IV SCH (03:45)
[2020-02-17] MEDS ORDERED: normal saline 1000ml 1,000 ML IV SCH (03:45)
[2020-02-17] MEDS ORDERED: potassium Cl 20 mEq SR tablet PO PRN ×3 (03:45)
[2020-02-17] MEDS ORDERED: sodium bicarbonate (8.4%) inj. 100 MEQ in dextrose 5% water 500ml 500 ML IV PRN (03:45)
[2020-02-17] MEDS ORDERED: acetaminophen 325mg tablet PO PRN ×2 (03:45)
[2020-02-17] MEDS ORDERED: sodium bicarbonate (8.4%) inj. 50 MEQ in dextrose 5% water 500ml 250 ML IV PRN (03:45)
[2020-02-17 03:46] LABS: ABG BASE EXCESS -9.2 mmol/L (-2.0-2.0); ABG HCO3 16.2 mmol/L (22.0-26.0); ABG OXYGEN SATURATION 97.1 % (94-97); ABG PCO2 (T) 33.5 mmHg (35.0-48.0); ABG PO2 (T) 100.4 mmHg (75.0-100.0); ALLEN'S TEST POSITIVE; FCOHb 1.6 % (0.0-3.9); FMetHb 0.3 % (0.0-1.5); FO2Hb 95.3 % (94-97); PATIENT TEMPERATURE 36.8; TOTAL HEMOGLOBIN 13.3 G/dl (14.0-18.0)
[2020-02-17] MEDS: Insulin Reg/NS 100units/100mL 100 ML IV SCH ×2 (03:54→05:46)
[2020-02-17] MEDS: HYDROcodone/acetaminophen 10/325mg tab PO PRN ×3 (04:06→21:40)
--- NOTE | 2020-02-17 04:06 | NUR ---
Patient in room . I have received report from FELICITAS, RN and had the opportunity to ask questions AND NOW AWAITING PATIENT ARRIVAL TO 3023A.
--- NOTE | 2020-02-17 04:20 | NUR ---
Patient arrived to unit from ED at 0420 via gurney and ambulated to self to bed. On industrial roof plumber 44. Vital signs: BP: 78/39, HR:98; SpO2: 100% on room air; RR:18; T: 98.1; and pain 10. Vancomycin infusing at 166 ml/hr and insulin gtt at 5 u/hr per provider order. Patient on room air and stable at this time. Q1h accuchecks on the half-hour. Will continue to monitor closely.
[2020-02-17 04:38] VITALS: BP 78/39
[2020-02-17] MEDS ORDERED: Potassium Cl inj 20 MEQ in normal saline 1000ml 990 ML IV SCH (05:05)
--- NOTE | 2020-02-17 05:38 | NUR ---
Paged Dr. Soni regarding marked drop in blood sugar in one hour. Rigoberto DAVIES Re: Asael Monroe. Patient blood sugars dropped from 372 to 266 in one hour at rate of 5 u/hr. Per protocol, 50-75 mg/dL drop recommended. Would you like to titrate to 4 units/hr? NS c 20 mEq K infusing at 250 mL/hr.
--- NOTE | 2020-02-17 05:42 | NUR ---
Per Dr. Soni telephone orders readjusted for insulin rate from 5 units/hr to 3 units/hr.
[2020-02-17 06:06] LABS: ALBUMIN 2.4 G/DL (3.4-5.0); ANION GAP 15 (8-16); BILIRUBIN,TOTAL 0.3 MG/DL (0.1-1.0); BLOOD UREA NITROGEN 11 MG/DL (7-18); BUN/CREATININE RATIO 10.9 (5.4-32.0); CALCIUM 8.3 MG/DL (8.5-10.1); CHLORIDE 99 MMOL/L (99-107); CREATININE 1.01 MG/DL (0.60-1.10); GLUCOSE 287 MG/DL (70-104); PHOSPHORUS 2.5 MG/DL (2.3-4.5); POTASSIUM 3.5 MMOL/L (3.5-5.1); SODIUM 134 MMOL/L (135-145); TOTAL CARBON DIOXIDE 19.6 MMOL/L (24-32); TOTAL PROTEIN 6.4 G/DL (6.4-8.2); eGFR > 90 ML/MIN
[2020-02-17 06:07] LABS: ALANINE AMINOTRANSFERASE 21 U/L (12-78); ALBUMIN/GLOBULIN RATIO 0.6 (1.1-1.5); ALKALINE PHOSPHATASE 117 IU/L (20-180); ASPARTATE AMINO TRANSFERASE 6 U/L (10-37)
--- NOTE | 2020-02-17 06:21 | NUR ---
Paged Dr. Soni regarding patient screaming in pain. Rigoberto RN, [phone] Re: Asael Monroe [id number] admitted for DKA. Patient is screaming out in pain, Norco10 given at 0400. Can we please get something different for pain? Thank you
--- NOTE | 2020-02-17 06:35 | NUR ---
Problems reprioritized. Patient report given, questions answered & plan of care reviewed with Jen DAVIES. Patient in pain and Dr. Soni notified.
--- NOTE | 2020-02-17 06:40 | NUR ---
Patient in room PCU 3023. I have received report from Rex DAVIES and had the opportunity to ask questions and assume patient care. Patient complaining of pain 10/10 to right knee. Will page MD for new orders.
--- NOTE | 2020-02-17 06:42 | NUR ---
Problems reprioritized. Patient report given, questions answered & plan of care reviewed with SAMSON SAWYER.
--- NOTE | 2020-02-17 06:51 | NUR ---
Paged Dr. Covington PAGER ID: [phone] MESSAGE: RE: Asael Monroe [id number]. Patient screaming and complaining of pain 10/10 to right knee. Only PRN is PO [place] which was given at 0400. Thank you. Jen [phone]
[2020-02-17] MEDS ORDERED: HYDROmorphone inj. 0.5 MG/0.5 ML DISP.SYRIN IV PRN (06:55)
--- NOTE | 2020-02-17 06:56 | NUR ---
New order from Dr. Soni: 0.5 mg IV dilaudid, 1 mg IV dilaudid for pain.
[2020-02-17 07:00] VITALS: BP 114/73
[2020-02-17] MEDS: HYDROmorphone 1 mg/ml syringe IV PRN ×3 (07:13→17:54)
[2020-02-17] MEDS ORDERED: D5-1/2NS w/20 mEq potassium per 1000ml IV SCH (08:00)
[2020-02-17] MEDS ORDERED: K and/or MAG REPLACEMENT MC SCH (08:00)
[2020-02-17] MEDS: K and/or MAG REPLACEMENT MC SCH ×2 (08:00→20:00)
[2020-02-17] MEDS: CefTRIAXone/D5W-Rocephin 1gm 50 ML IV SCH (09:46)
[2020-02-17 10:32] LABS: ALBUMIN 2.4 G/DL (3.4-5.0); ANION GAP 9 (8-16); BLOOD UREA NITROGEN 9 MG/DL (7-18); BUN/CREATININE RATIO 11.4 (5.4-32.0); CALCIUM 8.3 MG/DL (8.5-10.1); CHLORIDE 103 MMOL/L (99-107); CREATININE 0.79 MG/DL (0.60-1.10); GLUCOSE 201 MG/DL (70-104); PHOSPHORUS 2.4 MG/DL (2.3-4.5); POTASSIUM 3.7 MMOL/L (3.5-5.1); SODIUM 135 MMOL/L (135-145); eGFR > 90 ML/MIN
[2020-02-17] MEDS ORDERED: dextrose ORAL solution 15 GM/59 ML bottle PO PRN ×2 (10:45)
[2020-02-17] MEDS ORDERED: dextrose 50%-water 50ml dispensing syringe IV PRN ×2 (10:45)
[2020-02-17] MEDS ORDERED: MESSAGE TO PHARMACY PO ONE (10:45)
[2020-02-17] MEDS ORDERED: glucagon, human recombinant 1mg kit SUBCUT PRN (10:45)
[2020-02-17 11:00] VITALS: BP 93/51
--- NOTE | 2020-02-17 11:00 | NUR ---
Paged Dr. Todd: PAGER ID: [phone] MESSAGE: RE: Asael Monroe [id number]. Is it ok to feed patient now that insulin gtt discontinued? Also vascular is confirming DVT eval is for arms and not bilateral legs? Thank you. Jen [phone]
[2020-02-17 12:03] LABS: HEMOGLOBIN A1C 11.2 % (4.5-6.2)
[2020-02-17] MEDS: insulin Lispro (HumaLOG) vial - multi-dose SQ SCH ×3 (13:00→19:51)
[2020-02-17 13:01] LABS: HIV ANTIBODY 1&2 RAPID NON-REACTIVE (Neg)
--- NOTE | 2020-02-17 13:11 | NUR ---
Problems reprioritized. Patient report given, questions answered & plan of care reviewed with Mago DAVIES.
--- NOTE | 2020-02-17 13:23 | NUR ---
Patient in room PCU 3023. I have received report from SAMSON Li and had the opportunity to ask questions and assume patient care.
[2020-02-17 14:16] LABS: ALBUMIN 2.3 G/DL (3.4-5.0); ANION GAP 7 (8-16); BLOOD UREA NITROGEN 8 MG/DL (7-18); CALCIUM 8.2 MG/DL (8.5-10.1); CHLORIDE 102 MMOL/L (99-107); GLUCOSE 260 MG/DL (70-104); PHOSPHORUS 2.1 MG/DL (2.3-4.5); POTASSIUM 3.6 MMOL/L (3.5-5.1); SODIUM 135 MMOL/L (135-145); eGFR > 90 ML/MIN
[2020-02-17] MEDS: VANCOMYCIN 750MG IV in NS 250 ML IV SCH (14:34)
[2020-02-17 15:00] VITALS: BP 101/63
--- NOTE | 2020-02-17 15:09 | NUR ---
DM consult. Patient admitted with DKA and reported weight loss. Patient last seen June 2019; at that time patient reported that he does not have access to insulin d/t financial and social issues; was homeless, living in car with mother, and reported no longer having Medi-Iain on last admit and had tested positive for meth use this admit. His A1c 06/04/19 was greater than 14, is now 11.2; has brought it down. Attempted bedside visit, patient was undergoing exam when visited, need to return for DM education and bedside interview of weight history. Current weight is 4.5 kg less than last june, current weight not scaled, recommend obtaining scale weight; attempted phone call to RN. Patient does appear with visible fat and muscle wasting. Recommend: 1. continue carb controlled diet 2. weight per rx 3. monitor need for ONS if suboptimal PO intake Addendum: 02/17/20 at [address] Amended: Links added.
--- NOTE | 2020-02-17 18:28 | NUR ---
Patient in room PCU 3023. I have received report from SAMSON Feliciano and had the opportunity to ask questions and assume patient care.
--- NOTE | 2020-02-17 18:30 | NUR ---
Patient in room PCU 3023. I have received report from Mago DAVIES and had the opportunity to ask questions and assume patient care.
[2020-02-17] MEDS ORDERED: temazepam 15mg capsule PO PRN (21:00)
[2020-02-17] MEDS: insulin glargine (Lantus) pen - multi-dose SQ SCH (21:31)
--- NOTE | 2020-02-17 21:44 | NUR ---
reddened yet blanchable coccyx, offered to apply Optifoam due to pts slim figure, pt refused, encouraged pt to turn frequently to off load pressure from the coccyx to prevent any further complications, will continue to monitor pt
[2020-02-17 22:00] VITALS: BP 119/70
[2020-02-18 02:00] VITALS: BP 104/61
[2020-02-18] MEDS: VANCOMYCIN 750MG IV in NS 250 ML IV SCH ×3 (02:31→22:37)
[2020-02-18] MEDS: HYDROmorphone 1 mg/ml syringe IV PRN ×4 (02:38→21:25)
[2020-02-18 05:21] LABS: BASOPHILS # (AUTO) 0.1 X10'3 (0-0.2); BASOPHILS % (AUTO) 0.5 % (0-1); EOSINOPHILS % (AUTO) 0.1 % (0-6); HEMATOCRIT 37.5 % (42.0-52.0); HEMOGLOBIN 12.9 g/dl (14.0-17.9); LYMPHOCYTES # (AUTO) 2.5 X10'3 (1.1-4.8); LYMPHOCYTES % (AUTO) 17.5 % (21-51); MEAN CORPUSCULAR HEMOGLOBIN 32.2 PG (27.0-31.0); MEAN CORPUSCULAR HGB CONC 34.5 g/dL (33.0-36.5); MEAN CORPUSCULAR VOLUME 93.5 FL (78-98); MEAN PLATELET VOLUME 8.1 FL (7.4-10.4); MONOCYTES # (AUTO) 1.3 X10'3 (0-0.9); NEUTROPHILS # (AUTO) 10.3 X10'3 (1.8-7.7); NEUTROPHILS % (AUTO) 72.9 % (42-75); PLATELET COUNT 468 X10'3 (140-440); RED BLOOD COUNT 4.01 X10'6 (4.70-6.10); RED CELL DISTRIBUTION WIDTH 15.5 % (11.5-14.5); WHITE BLOOD COUNT 14.1 X10'3 (4.5-11.0)
[2020-02-18 05:34] LABS: ALBUMIN 2.2 G/DL (3.4-5.0); ANION GAP 7 (8-16); BLOOD UREA NITROGEN 7 MG/DL (7-18); BUN/CREATININE RATIO 13.5 (5.4-32.0); CALCIUM 8.8 MG/DL (8.5-10.1); CHLORIDE 100 MMOL/L (99-107); CREATININE 0.52 MG/DL (0.60-1.10); GLUCOSE 202 MG/DL (70-104); MAGNESIUM 1.8 MG/DL (1.5-2.4); PHOSPHORUS 2.4 MG/DL (2.3-4.5); POTASSIUM 3.2 MMOL/L (3.5-5.1); SODIUM 136 MMOL/L (135-145); TOTAL CARBON DIOXIDE 28.8 MMOL/L (24-32); eGFR > 90 ML/MIN
[2020-02-18 06:00] VITALS: BP 120/66
--- NOTE | 2020-02-18 06:25 | NUR ---
Patient in room PCU 3023. I have received report from SAMSON Feliciano and had the opportunity to ask questions and assume patient care.
--- NOTE | 2020-02-18 06:30 | NUR ---
Problems reprioritized. Patient report given, questions answered & plan of care reviewed with Latia DAVIES.
[2020-02-18] MEDS: potassium Cl 20 mEq SR tablet PO PRN ×3 (07:26→19:23)
[2020-02-18] MEDS: CefTRIAXone/D5W-Rocephin 1gm 50 ML IV SCH (07:26)
--- NOTE | 2020-02-18 07:43 | NUR ---
Awaiting MD orders. PAGER ID: [phone] MESSAGE: Re: Asael Monroe. Positive blood cultured this morning. Latia Hearn #[phone]
[2020-02-18] MEDS: K and/or MAG REPLACEMENT MC SCH ×2 (08:00→19:11)
[2020-02-18] MEDS: insulin Lispro (HumaLOG) vial - multi-dose SQ SCH ×3 (08:02→19:17)
[2020-02-18] MEDS: HYDROcodone/acetaminophen 10/325mg tab PO PRN ×2 (09:56→19:24)
[2020-02-18 11:00] VITALS: BP 122/64
--- NOTE | 2020-02-18 11:09 | NUR ---
Follow up: patient seen at bedside today along with bedside RN who helped with obtaining a bedscale weight, weight was 52.5 kg including light blankets and a couple pillows. Gave written DM education handout with verbal review. Patient has a good appetite, wanting to eat food; eating average of 75-100% of meals. Agreeable to double meat lunch and dinner and double eggs with breakfast, d/w dietary and his nurse. Patient stated he is no longer homeless, quit meth, and is living in [place]; discussed his Hgb A1c being much lower than last June, pt endorsed that he now has his insulin and a good supply of his materials; pt not sure why he is losing weight, states that sometimes eats less due meal availability. Encouraged patient to continue eating his meals here. DM consult. Patient admitted with DKA and reported weight loss. Patient last seen June 2019; at that time patient reported that he does not have access to insulin d/t financial and social issues; was homeless, living in car with mother, and reported no longer having Medi-Iain on last admit and had tested positive for meth use this admit. His A1c 06/04/19 was greater than 14, is now 11.2; has brought it down. Attempted bedside visit, patient was undergoing exam when visited, need to return for DM education and bedside interview of weight history. Current weight is 4.5 kg less than last June, current weight not scaled, recommend obtaining scale weight; attempted phone call to RN. Patient does appear with visible fat and muscle wasting. Recommend: 1. continue carb controlled diet 2. weight per rx 3. double eggs with breakfast, double meat lunch and dinner Addendum: 02/18/20 at [address] Amended: Links added.
[2020-02-18] MEDS ORDERED: VANCOMYCIN LEVEL IV ONE (13:30)
[2020-02-18 15:00] VITALS: BP 145/70
[2020-02-18 18:00] VITALS: BP 113/71
--- NOTE | 2020-02-18 18:20 | NUR ---
Problems reprioritized. Patient report given, questions answered & plan of care reviewed with SAMSON Carlos.
[2020-02-18] MEDS: insulin glargine (Lantus) pen - multi-dose SQ SCH (21:38)
[2020-02-19 02:00] VITALS: BP 118/79
[2020-02-19] MEDS: HYDROcodone/acetaminophen 10/325mg tab PO PRN ×5 (02:12→21:43)
[2020-02-19 05:10] LABS: BASOPHILS % (AUTO) 0.2 % (0-1); EOSINOPHILS % (AUTO) 0.2 % (0-6); HEMATOCRIT 38.7 % (42.0-52.0); HEMOGLOBIN 13.2 g/dl (14.0-17.9); LYMPHOCYTES # (AUTO) 1.9 X10'3 (1.1-4.8); LYMPHOCYTES % (AUTO) 15.5 % (21-51); MEAN CORPUSCULAR HEMOGLOBIN 32.5 PG (27.0-31.0); MEAN CORPUSCULAR HGB CONC 34.2 g/dL (33.0-36.5); MEAN PLATELET VOLUME 7.6 FL (7.4-10.4); MONOCYTES # (AUTO) 0.9 X10'3 (0-0.9); MONOCYTES % (AUTO) 7.5 % (2-12); NEUTROPHILS # (AUTO) 9.6 X10'3 (1.8-7.7); NEUTROPHILS % (AUTO) 76.6 % (42-75); PLATELET COUNT 404 X10'3 (140-440); RED BLOOD COUNT 4.08 X10'6 (4.70-6.10); RED CELL DISTRIBUTION WIDTH 15.6 % (11.5-14.5); WHITE BLOOD COUNT 12.5 X10'3 (4.5-11.0)
--- NOTE | 2020-02-19 06:26 | NUR ---
Problems reprioritized. Patient report given, questions answered & plan of care reviewed with SAMSON Mata.
--- NOTE | 2020-02-19 06:30 | NUR ---
Patient in room PCU 3023. I have received report from Breanna DAVIES and had the opportunity to ask questions and assume patient care.
[2020-02-19 07:00] VITALS: BP 116/77
--- NOTE | 2020-02-19 07:02 | NUR ---
Paged Dr. Todd. Asael Monroe, [id number]. FYI there is no BMP or CMP ordered since 02/17/20. Please advise TYChaya Mata [phone]
[2020-02-19] MEDS: VANCOMYCIN 750MG IV in NS 250 ML IV SCH (07:38)
[2020-02-19] MEDS: HYDROmorphone 1 mg/ml syringe IV PRN ×3 (07:40→16:16)
[2020-02-19] MEDS: heparin, porcine 5000 units/ml vial SQ SCH ×2 (07:41→20:47)
[2020-02-19] MEDS: K and/or MAG REPLACEMENT MC SCH ×2 (08:00→20:00)
[2020-02-19] MEDS: insulin Lispro (HumaLOG) vial - multi-dose SQ SCH ×3 (08:26→18:57)
[2020-02-19 09:23] LABS: BASOPHILS % (AUTO) 0.4 % (0-1); EOSINOPHILS % (AUTO) 0.1 % (0-6); HEMATOCRIT 37.5 % (42.0-52.0); HEMOGLOBIN 12.5 g/dl (14.0-17.9); LYMPHOCYTES # (AUTO) 1.6 X10'3 (1.1-4.8); LYMPHOCYTES % (AUTO) 14.5 % (21-51); MEAN CORPUSCULAR HEMOGLOBIN 31.5 PG (27.0-31.0); MEAN CORPUSCULAR HGB CONC 33.2 g/dL (33.0-36.5); MEAN PLATELET VOLUME 7.9 FL (7.4-10.4); MONOCYTES # (AUTO) 0.9 X10'3 (0-0.9); MONOCYTES % (AUTO) 8.1 % (2-12); NEUTROPHILS # (AUTO) 8.7 X10'3 (1.8-7.7); NEUTROPHILS % (AUTO) 76.9 % (42-75); PLATELET COUNT 413 X10'3 (140-440); RED BLOOD COUNT 3.95 X10'6 (4.70-6.10); RED CELL DISTRIBUTION WIDTH 15.8 % (11.5-14.5); WHITE BLOOD COUNT 11.2 X10'3 (4.5-11.0)
[2020-02-19 09:29] LABS: ANION GAP 3 (8-16); BLOOD UREA NITROGEN 10 MG/DL (7-18); BUN/CREATININE RATIO 17.5 (5.4-32.0); CALCIUM 8.7 MG/DL (8.5-10.1); CHLORIDE 98 MMOL/L (99-107); CREATININE 0.57 MG/DL (0.60-1.10); GLUCOSE 261 MG/DL (70-104); MAGNESIUM 1.7 MG/DL (1.5-2.4); PHOSPHORUS 3.9 MG/DL (2.3-4.5); POTASSIUM 4.1 MMOL/L (3.5-5.1); SODIUM 135 MMOL/L (135-145); TOTAL CARBON DIOXIDE 33.7 MMOL/L (24-32); eGFR > 90 ML/MIN
[2020-02-19] MEDS: piperacillin/tazo 3.375gm/50ml 50 ML IV SCH ×3 (09:38→15:39)
[2020-02-19 11:00] VITALS: BP 115/76
[2020-02-19] MEDS ORDERED: VANCOMYCIN LEVEL IV ONE (14:30)
[2020-02-19 15:00] VITALS: BP 116/65
[2020-02-19 17:00] VITALS: BP 116/65
[2020-02-19] MEDS: VANCOmycin 1250MG/NS 250ml Bag 250 ML IV SCH (17:32)
--- NOTE | 2020-02-19 18:10 | NUR ---
Patient in room PCU 3023. I have received report from SAMSON Mata and had the opportunity to ask questions and assume patient care.
--- NOTE | 2020-02-19 18:26 | NUR ---
Problems reprioritized. Patient report given, questions answered & plan of care reviewed with Migdalia DAVIES.
[2020-02-19] MEDS: lactobacillus rhamnosus 10,000 MMU CELLS/CAPSULE PO SCH (20:47)
[2020-02-19] MEDS: insulin glargine (Lantus) pen - multi-dose SQ SCH (20:55)
[2020-02-19 21:44] VITALS: BP 115/71
[2020-02-20] MEDS: VANCOmycin 1250MG/NS 250ml Bag 250 ML IV SCH ×3 (00:08→17:09)
[2020-02-20] MEDS: piperacillin/tazo 3.375gm/50ml 50 ML IV SCH ×3 (00:08→17:06)
[2020-02-20] MEDS: HYDROcodone/acetaminophen 10/325mg tab PO PRN ×3 (02:28→14:18)
[2020-02-20 02:31] VITALS: BP 117/70
[2020-02-20 05:43] LABS: BASOPHILS % (AUTO) 0.4 % (0-1); EOSINOPHILS % (AUTO) 0.2 % (0-6); HEMATOCRIT 35.9 % (42.0-52.0); HEMOGLOBIN 12.4 g/dl (14.0-17.9); LYMPHOCYTES # (AUTO) 2.6 X10'3 (1.1-4.8); LYMPHOCYTES % (AUTO) 21.8 % (21-51); MEAN CORPUSCULAR HGB CONC 34.5 g/dL (33.0-36.5); MEAN CORPUSCULAR VOLUME 95.6 FL (78-98); MEAN PLATELET VOLUME 8.2 FL (7.4-10.4); MONOCYTES # (AUTO) 0.8 X10'3 (0-0.9); MONOCYTES % (AUTO) 6.3 % (2-12); NEUTROPHILS # (AUTO) 8.5 X10'3 (1.8-7.7); NEUTROPHILS % (AUTO) 71.3 % (42-75); PLATELET COUNT 400 X10'3 (140-440); RED BLOOD COUNT 3.76 X10'6 (4.70-6.10); RED CELL DISTRIBUTION WIDTH 15.6 % (11.5-14.5); WHITE BLOOD COUNT 11.9 X10'3 (4.5-11.0)
[2020-02-20 06:00] VITALS: BP 108/68
[2020-02-20 06:02] LABS: ANION GAP 7 (8-16); BLOOD UREA NITROGEN 18 MG/DL (7-18); BUN/CREATININE RATIO 28.1 (5.4-32.0); CALCIUM 8.8 MG/DL (8.5-10.1); CHLORIDE 95 MMOL/L (99-107); CREATININE 0.64 MG/DL (0.60-1.10); GLUCOSE 283 MG/DL (70-104); MAGNESIUM 1.7 MG/DL (1.5-2.4); POTASSIUM 4.3 MMOL/L (3.5-5.1); SODIUM 131 MMOL/L (135-145); eGFR > 90 ML/MIN
--- NOTE | 2020-02-20 06:17 | NUR ---
Problems reprioritized. Patient report given, questions answered & plan of care reviewed with SAMSON Eid.
--- NOTE | 2020-02-20 06:25 | NUR ---
Patient in room PCU 3023. I have received report from Migdalia DAVIES and had the opportunity to ask questions and assume patient care.
--- NOTE | 2020-02-20 07:12 | NUR ---
PAGER ID: [phone] MESSAGE: [phone] Asael Monroe: ADWOA Blood cultures this morning is positive for MRSA, pt will be moved to iso room, pt is on vancomycin and Zosyn. thanks devan [phone]
[2020-02-20] MEDS: K and/or MAG REPLACEMENT MC SCH (08:00)
[2020-02-20] MEDS: lactobacillus rhamnosus 10,000 MMU CELLS/CAPSULE PO SCH (08:13)
[2020-02-20] MEDS: heparin, porcine 5000 units/ml vial SQ SCH (08:14)
[2020-02-20] MEDS: insulin Lispro (HumaLOG) vial - multi-dose SQ SCH ×3 (08:38→19:02)
--- NOTE | 2020-02-20 10:25 | NUR ---
Reassessment: DKA resolved per MD notes. Pt continues with 75-100% PO intake on CHO controlled diet while receiving double protein TID meeting nutrient needs. LBM 02/18. No further nutrition intervention warranted at this time. Will continue to follow. Recommend: 1. continue carb controlled diet 2. weight per rx 3. double eggs with breakfast, double meat lunch and dinner 4. bowel care PRN Addendum: 02/20/20 at [address] Amended: Links added.
--- NOTE | 2020-02-20 10:52 | NUR ---
Problems reprioritized. Patient report given, questions answered & plan of care reviewed with Calista DAVIES.
[2020-02-20 11:00] VITALS: BP 109/69
[2020-02-20 15:00] VITALS: BP 134/60
[2020-02-20] MEDS ORDERED: VANCOMYCIN LEVEL IV ONE (16:30)
--- NOTE | 2020-02-20 18:16 | NUR ---
Problems reprioritized. Patient report given, questions answered & plan of care reviewed with Shannon DAVIES.
--- NOTE | 2020-02-20 19:36 | NUR ---
At 1930 patient left ama. IV was taken out by patient, no tele on patient tried to educate patient but patient drewl refused to listen to any advice and left. AMA paperwork signed
== END 2020-02-20 19:35 | disposition left against medical advice (07) | DRG 420 ==
LOC: ER 23:24 → UNDOADMIN 02-17 03:45 → PCU 3S 02-17 03:45 → CMPBEDREQ 02-17 06:04 → PCU 3S 02-20 08:06
PROVIDERS: ADMIT Family Medicine; ATTEND Family Medicine
DX: E10.10 Type 1 diabetes mellitus with ketoacidosis without coma (principal); D72.829 Elevated white blood cell count, unspecified; E43 Unspecified severe protein-calorie malnutrition; F15.10 Other stimulant abuse, uncomplicated; F17.200 Nicotine dependence, unspecified, uncomplicated; J45.909 Unspecified asthma, uncomplicated; K61.1 Rectal abscess; R64 Cachexia; Z91.14 Patient's other noncompliance with medication regimen; Z68.1 Body mass index [BMI] 19.9 or less, adult; Z53.29 Procedure and treatment not carried out because of patient's decision for other reasons
CPT/HCPCS: 36415; 36600; 71045; 72193; 73560; 80048; 80053; 80202; 82607; 82803; 82948; 83036; 83605; 83735; 84100; 84145; 84443; 85018; 85025; 86703; 87040; 87070; 87077; 87081; 87186; 93306; 93970; 97010; 97116; 97161; 97530; 99285; G0378; J0696; J1170; J1644; J1815; J1885; J2543; J3370; J3480; J7030; J7050; Q9967

== ENCOUNTER 2020-02-21 11:59 | Emergency (ER) | payer MEDICAID ==
[~2020-02-21] VITALS: Ht 172.7 cm; Wt 54.5 kg
[2020-02-21 13:06] VITALS: BP 108/69
[2020-02-21] MEDS ORDERED: normal saline 1000ML IV soln IV ONE (13:10)
[2020-02-21 13:34] LABS: BASOPHILS % (AUTO) 0.5 % (0-1); EOSINOPHILS % (AUTO) 0.1 % (0-6); HEMATOCRIT 32.8 % (42.0-52.0); HEMOGLOBIN 10.9 g/dl (14.0-17.9); LYMPHOCYTES % (AUTO) 11.6 % (21-51); MEAN CORPUSCULAR HEMOGLOBIN 32.8 PG (27.0-31.0); MEAN CORPUSCULAR HGB CONC 33.2 g/dL (33.0-36.5); MEAN CORPUSCULAR VOLUME 98.8 FL (78-98); MEAN PLATELET VOLUME 7.9 FL (7.4-10.4); MONOCYTES # (AUTO) 0.6 X10'3 (0-0.9); NEUTROPHILS # (AUTO) 6.7 X10'3 (1.8-7.7); NEUTROPHILS % (AUTO) 80.8 % (42-75); PLATELET COUNT 456 X10'3 (140-440); RED BLOOD COUNT 3.32 X10'6 (4.70-6.10); RED CELL DISTRIBUTION WIDTH 15.5 % (11.5-14.5); WHITE BLOOD COUNT 8.3 X10'3 (4.5-11.0)
[2020-02-21 13:36] LABS: CLARITY,URINE CLEAR (Clear); COLOR,URINE YELLOW (Yellow); GLUCOSE, URINE >=1000 mg/dl (Neg); KETONES,URINE NEGATIVE (Neg); LEUKOCYTE ESTERASE ,URINE NEGATIVE (Neg); NITRITES, URINE NEGATIVE (Neg); OCCULT BLOOD,URINE NEGATIVE (Neg); PROTEIN,URINE NEGATIVE (Neg); UROBILINOGEN,URINE 0.2 E.U/dL (0.2-1.0)
[2020-02-21 13:47] LABS: UA COLLECTION TYPE URINAL
[2020-02-21 13:48] LABS: BACTERIA,URINE NONE SEEN /HPF (Neg); MUCUS STRANDS NONE SEEN /LPF (Neg); RBC,URINE 0-2 /HPF (0-2); SQUAMOUS EPITHELIAL CELL,UR FEW /LPF (FEW); WBC,URINE NONE SEEN /HPF (0-4)
[2020-02-21 13:58] LABS: ALANINE AMINOTRANSFERASE 68 U/L (12-78); ALBUMIN 2.2 G/DL (3.4-5.0); ALBUMIN/GLOBULIN RATIO 0.5 (1.1-1.5); ALKALINE PHOSPHATASE 268 IU/L (20-180); ANION GAP 11 (8-16); ASPARTATE AMINO TRANSFERASE 173 U/L (10-37); BILIRUBIN,TOTAL 0.4 MG/DL (0.1-1.0); BLOOD UREA NITROGEN 17 MG/DL (7-18); BUN/CREATININE RATIO 20.2 (5.4-32.0); CALCIUM 8.5 MG/DL (8.5-10.1); CHLORIDE 89 MMOL/L (99-107); CREATININE 0.84 MG/DL (0.60-1.10); MAGNESIUM 1.8 MG/DL (1.5-2.4); POTASSIUM 4.4 MMOL/L (3.5-5.1); SODIUM 124 MMOL/L (135-145); TOTAL CARBON DIOXIDE 24.5 MMOL/L (24-32); TOTAL PROTEIN 6.4 G/DL (6.4-8.2); eGFR > 90 ML/MIN
[2020-02-21 14:16] LABS: GLUCOSE 844 MG/DL (70-104)
== END 2020-02-21 14:20 | disposition home or self-care (01) ==
LOC: ER 12:00
DX: E11.65 Type 2 diabetes mellitus with hyperglycemia (principal); J45.909 Unspecified asthma, uncomplicated; F12.90 Cannabis use, unspecified, uncomplicated; F15.90 Other stimulant use, unspecified, uncomplicated; Z79.4 Long term (current) use of insulin
CPT/HCPCS: 36415; 71045; 80053; 81001; 82948; 83605; 83735; 84145; 85025; 87040; 93005; 96360; 99285; J7030

== ENCOUNTER 2020-08-24 09:56 | Emergency (ER) | payer MEDICAID ==
[~2020-08-24] VITALS: Ht 172.7 cm; Wt 47.2 kg
[~2020-08-24 09:56] MED LIST changes: -AMOX-422 PO; -UNABLE TO OBTAIN
[2020-08-24 10:02] VITALS: BP 100/62
== END 2020-08-24 10:42 | disposition home or self-care (01) ==
LOC: ER 09:56
DX: F15.90 Other stimulant use, unspecified, uncomplicated (principal); E10.65 Type 1 diabetes mellitus with hyperglycemia
CPT/HCPCS: 99281

== ENCOUNTER 2021-01-18 16:00 | Emergency (ER) | payer MEDICAID ==
[~2021-01-18] VITALS: Ht 172.7 cm; Wt 42.6 kg
[~2021-01-18 16:00] MED LIST changes: +etomidate 2mg/ml inj. ONE; +sod chloride 0.9% 10ml flush syringe IV ONE
[2021-01-18] MEDS ORDERED: normal saline 1000ML IV soln IV ONE (17:25)
[2021-01-18] MEDS ORDERED: piperacillin/tazo 3.375gm/50ml 50 ML IV ONE (17:25)
[2021-01-18] MEDS ORDERED: vancomycin/NS 1 GM ADD-VANTAGE 250 ML IV ONE (17:25)
[2021-01-18 18:15] LABS: BASOPHILS % (AUTO) 0.1 % (0-1); EOSINOPHILS % (AUTO) 0 % (0-6); HEMOGLOBIN 15.3 g/dl (14.0-17.9); LYMPHOCYTES # (AUTO) 1.2 X10'3 (1.1-4.8); LYMPHOCYTES % (AUTO) 9.1 % (21-51); MEAN CORPUSCULAR HEMOGLOBIN 31.3 PG (27.0-31.0); MEAN CORPUSCULAR VOLUME 92.2 FL (78-98); MONOCYTES # (AUTO) 1.2 X10'3 (0-0.9); MONOCYTES % (AUTO) 8.8 % (2-12); NEUTROPHILS # (AUTO) 10.8 X10'3 (1.8-7.7); PLATELET COUNT 410 X10'3 (140-440); RED BLOOD COUNT 4.88 X10'6 (4.70-6.10); RED CELL DISTRIBUTION WIDTH 13.8 % (11.5-14.5); WHITE BLOOD COUNT 13.2 X10'3 (4.5-11.0)
[2021-01-18] MEDS ORDERED: iohexol 300mg/ml 100ml inj. ONE (18:19)
[2021-01-18 18:35] LABS: ALANINE AMINOTRANSFERASE 30 U/L (12-78); ALBUMIN 3.5 G/DL (3.4-5.0); ALBUMIN/GLOBULIN RATIO 0.7 (1.1-1.5); ANION GAP 24 (8-16); ASPARTATE AMINO TRANSFERASE 10 U/L (10-37); BILIRUBIN,TOTAL 0.6 MG/DL (0.1-1.0); BLOOD UREA NITROGEN 13 MG/DL (7-18); BUN/CREATININE RATIO 12.7 (5.4-32.0); CALCIUM 9.2 MG/DL (8.5-10.1); CHLORIDE 85 MMOL/L (99-107); CREATININE 1.02 MG/DL (0.60-1.10); POTASSIUM 4.1 MMOL/L (3.5-5.1); SODIUM 128 MMOL/L (135-145); TOTAL CARBON DIOXIDE 18.7 MMOL/L (24-32); TOTAL PROTEIN 8.6 G/DL (6.4-8.2); eGFR > 90 ML/MIN
[2021-01-18 18:36] LABS: ALKALINE PHOSPHATASE 207 IU/L (46-116)
[2021-01-18 18:38] LABS: GLUCOSE 463 MG/DL (70-104)
[2021-01-18] MEDS ORDERED: morphine 4 MG/ML inj SYRINge IV ONE (18:45)
--- NOTE | 2021-01-18 20:30 | NUR ---
resp at bedside ,lab at bedside , rn x3 at bedside .
--- NOTE | 2021-01-18 20:30 | NUR ---
pt removed from bed 9 tp room 3 to prepair for intubation due to facial swelling .
[2021-01-18] MEDS ORDERED: succinylcholine 20mg/ml inj IV ONE ×2 (20:35→22:30)
[2021-01-18] MEDS ORDERED: midazolam 100mg in NS 100ml 100 ML IV PRN ×2 (20:35→23:50)
[2021-01-18] MEDS ORDERED: etomidate 2mg/ml inj. IV ONE (20:35)
[2021-01-18] MEDS ORDERED: FENTANYL-0.9 % NACL/PF 100 ML IV PRN ×2 (20:40→23:50)
--- NOTE | 2021-01-18 20:45 | NUR ---
COLT OBTAINED FOR INTUBATION . DR CUELLAR
--- NOTE | 2021-01-18 20:48 | NUR ---
pt medicated with 20mg of etomidate and 100mg of succinylcholine, intubated with 24 cm at teeth.
[2021-01-18] MEDS ORDERED: propofol 1000mg/100ml bottle 100 ML IV SCH ×2 (21:20→21:26)
--- NOTE | 2021-01-18 21:24 | NUR ---
MEDICATION RECORD SHOWS THAT VERSED WAS STARTED AT 75MG/HR, THIS IS INACCURATE. MEDIATION WAS STARTED AT 1MG/HR IS PROTOCOL. WAS UNABLE TO EDIT/UNDO THIS DOCUMATION IN THE EMAR. CALLED PHARMACY TO LET THEM KNOW THIS CLARIFICATION AND THAT THE MEDICATION WAS NOT ADMINISTERED AT THAT DOSE.
--- NOTE | 2021-01-18 21:43 | NUR ---
PT CURRENT TEMP 38.5 CELSIUS. EDMD CUELLAR MADE AWARE AND RECEIVED VERBAL ORDER FOR 650MG TYLENOL RECTAL SUPPOSITORY. ORDER PLACED RECEIVED
[2021-01-18] MEDS ORDERED: acetaminophen 650mg rectal suppository RC ONE ×2 (21:45→23:15)
[2021-01-18 21:46] LABS: ABG HCO3 15.2 mmol/L (22.0-26.0); ABG OXYGEN SATURATION 97.8 % (94-97); ABG PCO2 (T) 30.2 mmHg (35.0-48.0); ABG PO2 (T) 118.7 mmHg (75.0-100.0); ALLEN'S TEST POSITIVE; FCOHb 1.3 % (0.0-3.9); FMetHb 0.3 % (0.0-1.5); FO2Hb 96.2 % (94-97); PATIENT TEMPERATURE 38.4; PEEP 5 cm H2O; RESPIRATORY RATE 16 b/min; TIDAL VOLUME 500 mL; TOTAL HEMOGLOBIN 13.8 G/dl (14.0-18.0)
[2021-01-18 21:49] LABS: TRIGLYCERIDES 129 MG/DL (20-135)
[2021-01-18] MEDS ORDERED: normal saline 1000ml 1,000 ML IV ONE (22:10)
[2021-01-18] MEDS ORDERED: Insulin Reg/NS 100units/100mL 100 ML IV PRN (23:25)
--- NOTE | 2021-01-18 23:52 | NUR ---
propofol d/c. restarted versed and fentanyl as previously ordered to maintian sedation, pain management and pressure. Dr clay aware and gave verbal order.
--- NOTE | 2021-01-19 00:15 | NUR ---
started insulin gtt. verified by two rn. was unable to scan due to scanner battery .
--- NOTE | 2021-01-19 00:30 | NUR ---
per dr swift, pt ok to transport with [facility] team request. RN Ras Flor, to stop insluin gtt. blood sugar at 282, trending down post boluses.
--- NOTE | 2021-01-19 00:35 | NUR ---
per , ok to d/c insulin gtt for helicopter transport for transfer. Per Md, give vecuronium 10 mg for transport.
[2021-01-19] MEDS ORDERED: VECuronium br 10mg inj. IV ONE (00:40)
--- NOTE | 2021-01-19 02:00 | NUR ---
IN ARGEEMENT WITH ALL ABOVE ASSESSMENTS AND NOTATION WITH VIET MORIN
--- NOTE | 2021-01-19 02:00 | NUR ---
pt off unit via gurney to [facility] pad for [facility] helicopter transport.
[2021-01-19 05:37] VITALS: BP 90/34
== END 2021-01-19 02:00 | disposition short-term general hospital (02) ==
LOC: ER 16:00
DX: A41.9 Sepsis, unspecified organism (principal); Z20.822 Contact with and (suspected) exposure to COVID-19; E10.10 Type 1 diabetes mellitus with ketoacidosis without coma; K12.2 Cellulitis and abscess of mouth; E10.65 Type 1 diabetes mellitus with hyperglycemia; F15.10 Other stimulant abuse, uncomplicated; J96.01 Acute respiratory failure with hypoxia; J45.909 Unspecified asthma, uncomplicated; F12.90 Cannabis use, unspecified, uncomplicated; Z79.4 Long term (current) use of insulin
CPT/HCPCS: 31500; 36415; 36600; 70491; 71045; 80053; 82803; 82948; 83605; 84145; 84478; 85018; 85025; 87040; 87070; 87635; 93005; 96361; 96374; 96375; 99291; C9803; J0330; J2270; J2543; J2704; J3370; J7030; Q9967; 94002; 94760; 99285; J3010

== ENCOUNTER 2021-12-02 16:26 | Emergency (ER) | payer MEDICAID ==
[~2021-12-02] VITALS: Ht 175.3 cm; Wt 40.5 kg
[~2021-12-02 16:26] MED LIST changes: -etomidate 2mg/ml inj. ONE; -sod chloride 0.9% 10ml flush syringe IV ONE
[2021-12-02 16:51] VITALS: BP 117/72
[2021-12-02] MEDS ORDERED: ONDA8TAB13 PO (17:23)
== END 2021-12-02 17:28 | disposition home or self-care (01) ==
LOC: ER 16:26
DX: F15.10 Other stimulant abuse, uncomplicated (principal); R19.7 Diarrhea, unspecified; F12.10 Cannabis abuse, uncomplicated; J45.909 Unspecified asthma, uncomplicated; E11.9 Type 2 diabetes mellitus without complications; Z79.899 Other long term (current) drug therapy
CPT/HCPCS: 99283

== ENCOUNTER 2022-08-06 22:14 | Inpatient (IN) | payer MEDICAID ==
[~2022-08-06] VITALS: Ht 165.1 cm; Wt 35.0 kg
[~2022-08-06 22:14] MED LIST changes: +ONDA8TAB13 PO
[2022-08-06] MEDS ORDERED: normal saline 1000ML IV soln IVB ONE (22:50)
[2022-08-06 23:10] LABS: BASOPHILS % (AUTO) 0.3 % (0-1); EOSINOPHILS % (AUTO) 0.2 % (0-6); HEMATOCRIT 36.4 % (42.0-52.0); HEMOGLOBIN 11.9 g/dl (14.0-17.9); LYMPHOCYTES % (AUTO) 23.3 % (21-51); MEAN CORPUSCULAR HEMOGLOBIN 30.7 PG (27.0-31.0); MEAN CORPUSCULAR HGB CONC 32.7 g/dL (33.0-36.5); MEAN CORPUSCULAR VOLUME 93.7 FL (78-98); MEAN PLATELET VOLUME 8.4 FL (7.4-10.4); MONOCYTES # (AUTO) 0.6 X10'3 (0-0.9); MONOCYTES % (AUTO) 7.6 % (2-12); NEUTROPHILS # (AUTO) 5.7 X10'3 (1.8-7.7); NEUTROPHILS % (AUTO) 68.6 % (42-75); PLATELET COUNT 553 X10'3 (140-440); RED BLOOD COUNT 3.88 X10'6 (4.70-6.10); WHITE BLOOD COUNT 8.4 X10'3 (4.5-11.0)
[2022-08-06 23:23] LABS: ALANINE AMINOTRANSFERASE 32 U/L (12-78); ALBUMIN/GLOBULIN RATIO 0.8 (1.1-1.5); ALKALINE PHOSPHATASE 162 IU/L (46-116); ANION GAP 16 (8-16); ASPARTATE AMINO TRANSFERASE 10 U/L (10-37); BILIRUBIN,TOTAL 0.5 MG/DL (0.1-1.0); BLOOD UREA NITROGEN 18 MG/DL (7-18); BUN/CREATININE RATIO 13.7 (5.4-32.0); CALCIUM 8.6 MG/DL (8.5-10.1); CHLORIDE 83 MMOL/L (99-107); CREATININE 1.31 MG/DL (0.60-1.10); LIPASE 170 U/L (73-393); POTASSIUM 3.9 MMOL/L (3.5-5.1); SODIUM 121 MMOL/L (135-145); TOTAL CARBON DIOXIDE 22.4 MMOL/L (24-32); TOTAL PROTEIN 6.7 G/DL (6.4-8.2); eGFR 68 ML/MIN
[2022-08-06 23:37] LABS: GLUCOSE 923 MG/DL (70-104)
[2022-08-06] MEDS ORDERED: insulin regular, human 10 units/0.1 ml syringe IV ONE (23:40)
[2022-08-07 01:16] LABS: CLARITY,URINE CLEAR (Clear); COLOR,URINE STRAW (Yellow); GLUCOSE, URINE >=1000 mg/dl (Neg); KETONES,URINE 15 mg/dl (Neg); LEUKOCYTE ESTERASE ,URINE NEGATIVE (Neg); NITRITES, URINE NEGATIVE (Neg); OCCULT BLOOD,URINE NEGATIVE (Neg); PH,URINE 5.5 (4.8-8.0); PROTEIN,URINE NEGATIVE (Neg); UROBILINOGEN,URINE 0.2 E.U/dL (0.2-1.0)
[2022-08-07 01:20] LABS: UA COLLECTION TYPE FOLEY CATH
[2022-08-07 01:22] LABS: BACTERIA,URINE NONE SEEN /HPF (Neg); RBC,URINE NONE SEEN /HPF (0-2); SQUAMOUS EPITHELIAL CELL,UR FEW /LPF (FEW); WBC,URINE 0-4 /HPF (0-4)
[2022-08-07 02:54] LABS: ALBUMIN 2.8 G/DL (3.4-5.0); ANION GAP 10 (8-16); BLOOD UREA NITROGEN 15 MG/DL (7-18); BUN/CREATININE RATIO 11.8 (5.4-32.0); CALCIUM 8.4 MG/DL (8.5-10.1); CHLORIDE 95 MMOL/L (99-107); CREATININE 1.27 MG/DL (0.60-1.10); POTASSIUM 3.5 MMOL/L (3.5-5.1); TOTAL CARBON DIOXIDE 26.1 MMOL/L (24-32); eGFR 71 ML/MIN
[2022-08-07 03:26] LABS: SODIUM 131 MMOL/L (135-145)
[2022-08-07 03:29] LABS: GLUCOSE 613 MG/DL (70-104)
[2022-08-07] MEDS ORDERED: insulin regular, human 10 units/0.1 ml syringe IV ONE (03:40)
[2022-08-07] MEDS ORDERED: insulin regular, human 10 units/0.1 ml syringe SQ ONE (03:40)
[2022-08-07] MEDS ORDERED: normal saline 1000ML IV soln IVB ONE (03:40)
[2022-08-07] MEDS ORDERED: potassium Cl 20 mEq SR tablet PO PRN ×2 (04:25)
[2022-08-07] MEDS ORDERED: acetaminophen 325mg tablet PO PRN (04:25)
[2022-08-07] MEDS ORDERED: ondansetron/PF 4mg/2ml inj IV PRN (04:25)
[2022-08-07] MEDS ORDERED: mag hydrox/Alum hydrox/simeth 30ml oral suspension PO PRN (04:25)
[2022-08-07] MEDS ORDERED: potassium Cl 40MEQ/1/2NS 520ml 520 ML IV PRN (04:25)
[2022-08-07] MEDS ORDERED: magnesium 4gm in 100ml NS 100 ML IV PRN (04:25)
[2022-08-07] MEDS ORDERED: magnesium hydroxide 30ml (MOM) UD suspension PO PRN (04:25)
[2022-08-07] MEDS ORDERED: magnesium Cl slow-release 64mg tablet PO PRN (04:25)
[2022-08-07] MEDS ORDERED: MESSAGE TO PHARMACY PO ONE (04:30)
[2022-08-07] MEDS ORDERED: glucagon, human recombinant 1mg kit SUBCUT PRN (04:30)
[2022-08-07] MEDS ORDERED: DEXTROSE 15 GM of carb/4 tabs (each vial/BOTTLE has 4 tablets) PO PRN ×2 (04:30)
[2022-08-07] MEDS ORDERED: dextrose 50%-water 50ml dispensing syringe IV PRN ×2 (04:30)
[2022-08-07] MEDS: normal saline 1000ml 1,000 ML IV SCH ×2 (04:48→09:25)
[2022-08-07 06:04] LABS: MAGNESIUM 2.1 MG/DL (1.5-2.4)
--- NOTE | 2022-08-07 06:31 | NUR ---
NS @ 200ML/HR ON HOLD PER RAPID SODIUM LEVEL INCREASE. WILL PAGE MD TO REPORT LAB VALUES.
--- NOTE | 2022-08-07 06:32 | NUR ---
ASSUMED PT CARE. PT SHOWS NO S/S OF ACUTE DISTRESS. BED LOCKED AND LOW, CALL LIGHT IN REACH.
--- NOTE | 2022-08-07 07:12 | NUR ---
Dr. SHINE paged regarding change of sodium levels.
[2022-08-07] MEDS ORDERED: heparin, porcine 5000 units/ml vial SQ SCH (08:00)
[2022-08-07] MEDS ORDERED: K and/or MAG REPLACEMENT MC SCH (08:00)
[2022-08-07] MEDS ORDERED: docusate sod 100mg capsule PO SCH (08:00)
[2022-08-07] MEDS: insulin Lispro (HumaLOG) vial - multi-dose SQ SCH ×2 (08:48→13:26)
--- NOTE | 2022-08-07 09:40 | NUR ---
Dr. De La Fuente, hospitalist at bedside.
--- NOTE | 2022-08-07 10:12 | NUR ---
Full bed and brief change. Pt tolerated without complications.
[2022-08-07 11:39] VITALS: BP 122/75
--- NOTE | 2022-08-07 13:07 | NUR ---
[facility] called for transport
--- NOTE | 2022-08-07 14:08 | NUR ---
Ly[employer] transport arrived for patient. Pt wheeled out to the car.
[2022-08-07] MEDS ORDERED: insulin glargine (Lantus) pen - multi-dose SQ SCH (21:00)
== END 2022-08-07 12:30 | disposition home or self-care (01) | DRG 420 ==
LOC: ER 22:14 → ED HOLD 08-07 04:27
PROVIDERS: ADMIT Internal Medicine; ATTEND Internal Medicine
DX: E10.10 Type 1 diabetes mellitus with ketoacidosis without coma (principal); N17.9 Acute kidney failure, unspecified; R64 Cachexia; J45.909 Unspecified asthma, uncomplicated; Z79.4 Long term (current) use of insulin; Z79.899 Other long term (current) drug therapy; Z68.1 Body mass index [BMI] 19.9 or less, adult
CPT/HCPCS: 36415; 80048; 80053; 81001; 82948; 83690; 83735; 84484; 85025; 96361; 96372; 96374; 96375; 96376; 99285; G0378; J1644; J1815; J7030

== ENCOUNTER 2024-11-10 13:07 | Inpatient (IN) | payer MEDICAID, SELFPAY ==
[~2024-11-10] VITALS: Ht 157.5 cm; Wt 44.0 kg
[~2024-11-10 13:07] MED LIST changes: +ONDA-245 PO; -ONDA8TAB13 PO; +pantoprazole 40 MG vial IV ONE
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
[2024-11-10 14:22] LABS: BILIRUBIN,URINE NEGATIVE (Neg); CLARITY,URINE CLEAR (Clear); COLOR,URINE YELLOW (Yellow); GLUCOSE, URINE >=1000 mg/dl (Neg); KETONES,URINE 15 mg/dl (Neg); LEUKOCYTE ESTERASE ,URINE NEGATIVE (Neg); NITRITES, URINE NEGATIVE (Neg); OCCULT BLOOD,URINE SMALL (Neg); PROTEIN,URINE 100 mg/dl (Neg); UROBILINOGEN,URINE 0.2 E.U/dL (0.2-1.0)
[2024-11-10 14:40] LABS: UA COLLECTION TYPE VOIDED
[2024-11-10 14:41] LABS: WBC,URINE 20-30 /HPF (0-4)
[2024-11-10 14:42] LABS: BACTERIA,URINE 1+ /HPF (Neg); SQUAMOUS EPITHELIAL CELL,UR FEW /LPF (FEW); WBC CLUMPS,URINE MODERATE /HPF (NEGATIVE); YEAST MODERATE /HPF (NEGATIVE)
[2024-11-10] MEDS: ketamine 50 mg/ml 10ml vial IM ONE ×2 (15:30→19:19)
[2024-11-10] MEDS: pantoprazole 40 MG vial IV ONE (16:20)
[2024-11-10] MEDS: famotidine/PF 10 mg/ml inj IV ONE (16:20)
[2024-11-10 16:45] LABS: BASOPHILS # (AUTO) 0.1 X10'3 (0-0.2); BASOPHILS % (AUTO) 0.4 % (0-1); EOSINOPHILS % (AUTO) 0 % (0-6); HEMOGLOBIN 8.8 g/dl (14.0-17.9)
[2024-11-10 16:47] LABS: LYMPHOCYTES # (AUTO) 1.6 X10'3 (1.1-4.8); LYMPHOCYTES % (AUTO) 9.1 % (21-51); MEAN CORPUSCULAR HEMOGLOBIN 27.5 PG (27.0-31.0); MEAN CORPUSCULAR HGB CONC 30.3 g/dL (33.0-36.5); MEAN CORPUSCULAR VOLUME 90.8 FL (78-98); MEAN PLATELET VOLUME 8.7 FL (7.4-10.4); MONOCYTES # (AUTO) 0.9 X10'3 (0-0.9); MONOCYTES % (AUTO) 5.2 % (2-12); NEUTROPHILS # (AUTO) 15.4 X10'3 (1.8-7.7); NEUTROPHILS % (AUTO) 85.3 % (42-75); PLATELET COUNT 996 X10'3 (140-440); WHITE BLOOD COUNT 18.1 X10'3 (4.5-11.0)
[2024-11-10 17:08] LABS: ALANINE AMINOTRANSFERASE 11 U/L (12-78); ALBUMIN 2.3 G/DL (3.4-5.0); ALBUMIN/GLOBULIN RATIO 0.5 (1.1-1.5); ALKALINE PHOSPHATASE 118 IU/L (46-116); ANION GAP 31 (8-16); ASPARTATE AMINO TRANSFERASE 12 U/L (10-37); BILIRUBIN,TOTAL 0.4 MG/DL (0.1-1.0); BLOOD UREA NITROGEN 80 MG/DL (7-18); BUN/CREATININE RATIO 23.1 (10.0-20.0); CALCIUM 8.5 MG/DL (8.5-10.1); CHLORIDE 88 MMOL/L (99-107); CREATININE 3.47 MG/DL (0.60-1.10); LIPASE 11 U/L (16-77); SODIUM 128 MMOL/L (135-145); TOTAL PROTEIN 6.8 G/DL (6.4-8.2); eCRCL 20 ML/MIN; eGFR 22 ML/MIN
[2024-11-10 17:20] LABS: POTASSIUM 7.5 MMOL/L (3.5-5.1)
[2024-11-10 17:21] LABS: TOTAL CARBON DIOXIDE 9.1 MMOL/L (24-32)
[2024-11-10 17:32] LABS: GLUCOSE 771 MG/DL (70-104)
[2024-11-10] MEDS: normal saline 1000ml 1,000 ML IV ONE ×2 (17:43→18:56)
[2024-11-10] MEDS: pantoprazole 40MG/NS 100ML BAG 100 ML IV SCH (17:43)
[2024-11-10] MEDS: sodium polystyrene sulfonate 15gm/60ml oral suspension PO ONE (18:05)
[2024-11-10] MEDS: CALCIUM GLUC 1gm/50ml NACL,iso 50 ML IV PRN (18:16)
[2024-11-10] MEDS: dextrose 50%-water 50ml dispensing syringe IV ONE (18:24)
[2024-11-10] MEDS: insulin regular, human 10 units/0.1 ml syringe IV ONE ×2 (18:25→18:42)
[2024-11-10] MEDS: albuterol 2.5 MG/3 ML nebule CONTNEB PRN (18:31)
[2024-11-10] MEDS: sodium bicarbonate (8.4%) 1 mEq/ml syringe IV ONE (18:42)
[2024-11-10] MEDS: albuterol 2.5 MG/3 ML nebule NEB ONE (18:43)
[2024-11-10 18:44] VITALS: PULSE 117; RESP 30; O2SAT 100
[2024-11-10] MEDS ORDERED: ketamine 50 mg/ml 10ml vial IM ONE (18:45)
[2024-11-10] MEDS ORDERED: VANCOMYCIN/H2O 1.5g/300mL PB 300 ML IV SCH (20:00)
[2024-11-10] MEDS: vancomycin inj. 750 MG in normal saline 250ml IV soln 250 ML IV ONE (20:16)
--- NOTE | 2024-11-10 20:58 | RADIOLOGY REPORT ---
Clinical History ams Comparison None Technique: All CT scans at this medical facility are performed using dose modulation techniques as appropriate t o a performed exam including the following: Automated exposure control was utilized; adjustment of th e mA and/or kV according to patient size; and use of iterative reconstruction technique. All CT studies are reported to the Dose Index Registry of the [employer]. Without Contrast Radiation Dose: CTDI (mGy): 58.9; DLP (mGy-cm): 1081.84 JASS MANNING, [id number] Findings: Moderate left parietotemporal encephalomalacia with 2 hyperdense foci, the largest measures 1.2 cm wh ich could be a sequela of chronic remote hemorrhage No mass-effect. No shift of midline structures. The ventricular system and extracerebral CSF spaces are unremarkable for patient's age. No acute orbital abnormality. The imaged part of the paranasal sinuses is unremarkable.The imaged par t of the mastoid air cells is unremarkable. The calvarium is unremarkable. The soft tissues are unremarkable. Impression: Moderate left parietotemporal encephalomalacia with 2 hyperdense foci, the largest measures 1.2 cm wh ich could be a sequela of chronic remote hemorrhage This report was electronically signed by Vinicio Alegria MD on 11/10/2024 8:54:55 PM.
[2024-11-10] MEDS: propofol 10mg/ml 20ml vial IV ONE ×2 (22:02→22:20)
--- NOTE | 2024-11-10 22:22 | RADIOLOGY REPORT ---
Clinical History ams Comparison None Technique: All CT scans at this medical facility are performed using dose modulation techniques as appropriate t o a performed exam including the following: Automated exposure control was utilized; adjustment of th e mA and/or kV according to patient size; and use of iterative reconstruction technique. All CT studies are reported to the Dose Index Registry of the [employer]. Without Contrast Radiation Dose: CTDI (mGy): 20.77 18.66; DLP (mGy-cm): 1718.21 JASS MANNING, [id number] FINDINGS: certified tumor registrar: none Mediastinum: No significant meidastinal or hilar lymphadenopathy.The major mediastinal vascular struc tures are unremarkable. The heart and pericardium are unremarkable. The esophagus is unremarkable. Thoracic wall: unremarkable Lungs: Multifocal bilateral pulmonary patchy opacities. The major airways are unremarkable.No pleura l effusion. No pneumothorax. Liver: Unremarkable Gallbladder: Unremarkable Pancreas: Diffuse pancreatic atrophy Spleen: Unremarkable Adrenals:Unremarkable Kidneys: Minimum bilateral perinephric stranding of fat Stomach:Unremarkable Bowel:Unremarkable Urinary bladder: Small amount of air is seen in the independent part of the urinary bladder which cou ld be related to recent instrumentation. Diffuse mural thickening of the urinary bladder Reproductive organs:No pelvic masses Peritoneum, retroperitoneum, lymphadenopathy:Unremarkable Vascular structures:Unremarkable Abdominal wall:Unremarkable Musculoskeletal:No acute osseous abnormality IMPRESSION: Multifocal bilateral pneumonia. Perinephric stranding of fat with diffuse mural thickening of the urinary bladder, clinical correlati on to evaluate for cystitis is recommended This report was electronically signed by Vinicio Alegria MD on 11/10/2024 10:19:36 PM.
[2024-11-10] MEDS ORDERED: sodium phosphate inj. 15 MMOL in dextrose 5%-water 250 ML IV PRN (22:45)
[2024-11-10] MEDS: dextrose 5%-1/2 normal saline 1,000 ML IV SCH (22:45)
[2024-11-10] MEDS ORDERED: dextrose 50%-water 50ml dispensing syringe IV PRN (22:45)
[2024-11-10] MEDS ORDERED: potassium Cl 40MEQ/1/2NS 520ml 520 ML IV PRN (22:45)
[2024-11-10] MEDS ORDERED: potassium Cl 40MEQ/270ML bag 270 ML IV PRN (22:45)
[2024-11-10] MEDS ORDERED: magnesium sulf-water 2g/50mL 50 ML IV PRN (22:45)
[2024-11-10] MEDS: ringers solution, lacted 1,000 ML IV SCH ×2 (22:45→23:14)
[2024-11-10] MEDS ORDERED: sodium phosphate inj. 30 MMOL in dextrose 5%-water 250 ML IV SCH (22:45)
[2024-11-10] MEDS: ondansetron/PF 4mg/2ml inj IV ONE (22:54)
[2024-11-10] MEDS: morphine 4 MG/ML inj SYRINge IV ONE (22:55)
--- NOTE | 2024-11-10 22:58 | RADIOLOGY REPORT ---
EXAM: DI CHEST,SINGLE VIEW CLINICAL HISTORY: CENTRAL LINE PLACEMENT TECHNIQUE: Single AP view of the chest WID: COMPARISON: CHEST,SINGLE VIEW on DOS: 01/18/21, CT chest abdomen and pelvis from same day FINDINGS: Lines and tubes: Right IJ central venous catheter with the tip projecting over the mid SVC. Chest: The heart size and pulmonary vasculature is within normal limits. There are hazy opacities in the [id number]-left lungs. No pleural effusion or pneumothorax. The osseous structures are grossly intact. IMPRESSION: 1. Right IJ central venous catheter placement with the tip projecting over the mid SVC. No pneumothor ax. 2. Hazy opacities in the [id number]-ibvp-left lungs which could reflect atypical pneumonia.
[2024-11-10 23:04] LABS: ALANINE AMINOTRANSFERASE 12 U/L (12-78); ALBUMIN 1.9 G/DL (3.4-5.0); ALBUMIN/GLOBULIN RATIO 0.5 (1.1-1.5); ALKALINE PHOSPHATASE 101 IU/L (46-116); ANION GAP 25 (8-16); ASPARTATE AMINO TRANSFERASE 11 U/L (10-37); BILIRUBIN,TOTAL 0.4 MG/DL (0.1-1.0); BLOOD UREA NITROGEN 85 MG/DL (7-18); BUN/CREATININE RATIO 26.2 (10.0-20.0); CALCIUM 7.4 MG/DL (8.5-10.1); CHLORIDE 97 MMOL/L (99-107); CREATININE 3.24 MG/DL (0.60-1.10); MAGNESIUM 2.2 MG/DL (1.5-2.4); PHOSPHORUS 6.3 MG/DL (2.3-4.5); POTASSIUM 5.1 MMOL/L (3.5-5.1); SODIUM 133 MMOL/L (135-145); TOTAL PROTEIN 5.4 G/DL (6.4-8.2); eCRCL 22 ML/MIN; eGFR 23 ML/MIN
[2024-11-10 23:17] LABS: GLUCOSE 643 MG/DL (70-104); TOTAL CARBON DIOXIDE 11.5 MMOL/L (24-32)
[2024-11-10 23:23] LABS: OXYGEN SATURATION (MIXED VEN) 58.2 % (60-80)
[2024-11-11] VITALS (10 sets, daily range): BP systolic 135–168; BP diastolic 72–82; PULSE 84–95; RESP 14–18; TEMP 98–98.7; O2SAT 95–100
[2024-11-11 00:28] LABS: BASOPHILS # (AUTO) 0.1 X10'3 (0-0.2); HEMOGLOBIN 7.3 g/dl (14.0-17.9); MEAN CORPUSCULAR HGB CONC 31.2 g/dL (33.0-36.5); MEAN PLATELET VOLUME 7.9 FL (7.4-10.4); RED BLOOD COUNT 2.65 X10'6 (4.70-6.10)
[2024-11-11] MEDS: propofol 1000mg/100ml bottle 100 ML IV ONE (00:28)
[2024-11-11 00:30] LABS: BASOPHILS % (AUTO) 0.6 % (0-1); EOSINOPHILS % (AUTO) 0 % (0-6); HEMATOCRIT 23.4 % (42.0-52.0); LYMPHOCYTES # (AUTO) 2.6 X10'3 (1.1-4.8); LYMPHOCYTES % (AUTO) 15.7 % (21-51); MEAN CORPUSCULAR HEMOGLOBIN 27.6 PG (27.0-31.0); MEAN CORPUSCULAR VOLUME 88.3 FL (78-98); MONOCYTES # (AUTO) 2.2 X10'3 (0-0.9); MONOCYTES % (AUTO) 13.4 % (2-12); NEUTROPHILS # (AUTO) 11.7 X10'3 (1.8-7.7); NEUTROPHILS % (AUTO) 70.3 % (42-75); PLATELET COUNT 814 X10'3 (140-440); RED CELL DISTRIBUTION WIDTH 17.2 % (11.5-14.5); WHITE BLOOD COUNT 16.6 X10'3 (4.5-11.0)
[2024-11-11] MEDS: Insulin Reg/NS 100units/100mL 100 ML IV SCH (00:39)
[2024-11-11 00:46] LABS: ALANINE AMINOTRANSFERASE 11 U/L (12-78); ALBUMIN/GLOBULIN RATIO 0.6 (1.1-1.5); ALKALINE PHOSPHATASE 101 IU/L (46-116); ANION GAP 24 (8-16); ASPARTATE AMINO TRANSFERASE 13 U/L (10-37); BILIRUBIN,TOTAL 0.4 MG/DL (0.1-1.0); BLOOD UREA NITROGEN 74 MG/DL (7-18); BUN/CREATININE RATIO 22.9 (10.0-20.0); CALCIUM 7.7 MG/DL (8.5-10.1); CHLORIDE 96 MMOL/L (99-107); CREATININE 3.23 MG/DL (0.60-1.10); POTASSIUM 5.3 MMOL/L (3.5-5.1); SODIUM 132 MMOL/L (135-145); TOTAL PROTEIN 5.6 G/DL (6.4-8.2); eCRCL 22 ML/MIN; eGFR 24 ML/MIN
[2024-11-11] MEDS: piperacillin/tazo 3.375gm/50ml 50 ML IV SCH (00:49)
[2024-11-11 00:54] LABS: GLUCOSE 630 MG/DL (70-104); TOTAL CARBON DIOXIDE 12.2 MMOL/L (24-32)
[2024-11-11] MEDS: morphine 2 MG/ML inj. syringe IV ONE (01:01)
[2024-11-11] MEDS ORDERED: mag hydrox/Alum hydrox/simeth 30ml oral suspension PO PRN (01:05)
[2024-11-11] MEDS ORDERED: HYDROmorphone/PF 0.2 MG/ML SYRINGE IV PRN (01:05)
[2024-11-11] MEDS ORDERED: magnesium sulf-water 2g/50mL 50 ML IV PRN (01:05)
[2024-11-11] MEDS ORDERED: acetaminophen 325mg tablet PO PRN (01:05)
[2024-11-11] MEDS ORDERED: magnesium sulf-water 4G/100mL 100 ML IV PRN (01:05)
[2024-11-11] MEDS ORDERED: magnesium hydroxide 30ml (MOM) UD suspension PO PRN (01:05)
[2024-11-11] MEDS ORDERED: docusate sod 100mg capsule PO PRN (01:05)
[2024-11-11] MEDS ORDERED: potassium Cl 40MEQ/1/2NS 520ml 520 ML IV PRN (01:05)
[2024-11-11] MEDS ORDERED: albuterol 2.5 MG/3 ML nebule CONTNEB PRN (01:10)
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
[2024-11-11 01:32] LABS: THYROID STIMULATING HORMONE 0.35 ulU/ml (0.34-4.50)
[2024-11-11 01:38] LABS: HEMOGLOBIN A1C 8.8 % (4.5-6.2)
[2024-11-11 03:19] LABS: CHLORIDE 101 MMOL/L (99-107); MAGNESIUM 1.9 MG/DL (1.5-2.4); POTASSIUM 4.7 MMOL/L (3.5-5.1); SODIUM 136 MMOL/L (135-145)
[2024-11-11 03:21] LABS: MEAN CORPUSCULAR HGB CONC 31.2 g/dL (33.0-36.5); MEAN CORPUSCULAR VOLUME 85.5 FL (78-98)
[2024-11-11 03:22] LABS: HEMATOCRIT 22.7 % (42.0-52.0); HEMOGLOBIN 7.1 g/dl (14.0-17.9); MEAN CORPUSCULAR HEMOGLOBIN 26.7 PG (27.0-31.0); MEAN PLATELET VOLUME 7.9 FL (7.4-10.4); PLATELET COUNT 879 X10'3 (140-440); RED BLOOD COUNT 2.66 X10'6 (4.70-6.10); RED CELL DISTRIBUTION WIDTH 16.3 % (11.5-14.5); WHITE BLOOD COUNT 15.1 X10'3 (4.5-11.0)
[2024-11-11 03:35] LABS: ALBUMIN 1.9 G/DL (3.4-5.0); ANION GAP 18 (8-16); BLOOD UREA NITROGEN 68 MG/DL (7-18); BUN/CREATININE RATIO 21.9 (10.0-20.0); CALCIUM 7.6 MG/DL (8.5-10.1); TOTAL CARBON DIOXIDE 17.3 MMOL/L (24-32); eCRCL 23 ML/MIN; eGFR 25 ML/MIN
[2024-11-11 03:38] LABS: GLUCOSE 514 MG/DL (70-104)
[2024-11-11] MEDS: HYDROmorphone inj. 0.5 MG/0.5 ML DISP.SYRIN IV PRN (06:00)
[2024-11-11 07:08] LABS: MEAN PLATELET VOLUME 7.6 FL (7.4-10.4)
[2024-11-11 07:10] LABS: MEAN CORPUSCULAR HEMOGLOBIN 27.1 PG (27.0-31.0); MEAN CORPUSCULAR HGB CONC 32.6 g/dL (33.0-36.5); MEAN CORPUSCULAR VOLUME 83.3 FL (78-98); PLATELET COUNT 799 X10'3 (140-440); RED BLOOD COUNT 2.58 X10'6 (4.70-6.10); WHITE BLOOD COUNT 11.8 X10'3 (4.5-11.0)
[2024-11-11 07:25] LABS: HEMATOCRIT 21.5 % (42.0-52.0)
[2024-11-11] MEDS ORDERED: heparin, porcine 5000 units/ml vial SQ SCH (08:00)
[2024-11-11] MEDS: K and/or MAG REPLACEMENT MC SCH (08:00)
[2024-11-11] MEDS: CefTRIAXone/D5W-Rocephin 1gm 50 ML IV SCH (09:27)
[2024-11-11 09:28] LABS: ALBUMIN 1.8 G/DL (3.4-5.0); ANION GAP 8 (8-16); BLOOD UREA NITROGEN 63 MG/DL (7-18); BUN/CREATININE RATIO 22.1 (10.0-20.0); CALCIUM 8.1 MG/DL (8.5-10.1); CHLORIDE 109 MMOL/L (99-107); CREATININE 2.85 MG/DL (0.60-1.10); GLUCOSE 99 MG/DL (70-104); SODIUM 141 MMOL/L (135-145); TOTAL CARBON DIOXIDE 23.7 MMOL/L (24-32); eCRCL 25 ML/MIN; eGFR 27 ML/MIN
[2024-11-11] MEDS: Dextrose 10%-water IV solution 1,000 ML IV SCH (09:46)
[2024-11-11] MEDS: azithromycin/NS 500mg/250ml 250 ML IV SCH (09:48)
[2024-11-11] MEDS: insulin glargine (Lantus) pen - multi-dose SQ SCH ×2 (10:20→21:12)
[2024-11-11] MEDS ORDERED: dextrose 50%-water 50ml dispensing syringe IV PRN (10:20)
[2024-11-11] MEDS ORDERED: glucagon, human recombinant 1mg kit SUBCUT PRN (10:20)
[2024-11-11] MEDS: INSULIN LISPRO 100 UNIT/ML INSULN.PEN MULTI-DOSE SQ SCH ×2 (12:00→20:08)
[2024-11-11] MEDS: insulin glargine (Lantus) pen - multi-dose SQ ONE (13:48)
[2024-11-11] MEDS: normal saline 1000ml 1,000 ML IV SCH (13:49)
[2024-11-11] MEDS ORDERED: LANC-509 (14:26)
[2024-11-11] MEDS ORDERED: BLOO-1084 (14:26)
[2024-11-11 16:50] LABS: HEMOGLOBIN 9.8 g/dl (14.0-17.9); MEAN CORPUSCULAR VOLUME 83.2 FL (78-98)
[2024-11-11 16:51] LABS: MEAN CORPUSCULAR HEMOGLOBIN 28.1 PG (27.0-31.0); MEAN CORPUSCULAR HGB CONC 33.8 g/dL (33.0-36.5); PLATELET COUNT 730 X10'3 (140-440); RED BLOOD COUNT 3.49 X10'6 (4.70-6.10); RED CELL DISTRIBUTION WIDTH 15.8 % (11.5-14.5); WHITE BLOOD COUNT 11.4 X10'3 (4.5-11.0)
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
[2024-11-11 20:18] LABS: HEMATOCRIT 29.6 % (42.0-52.0)
[2024-11-11 20:20] LABS: HEMOGLOBIN 9.8 g/dl (14.0-17.9); MEAN CORPUSCULAR HEMOGLOBIN 27.8 PG (27.0-31.0); MEAN CORPUSCULAR HGB CONC 33.1 g/dL (33.0-36.5); MEAN CORPUSCULAR VOLUME 84.1 FL (78-98); MEAN PLATELET VOLUME 7.9 FL (7.4-10.4); PLATELET COUNT 730 X10'3 (140-440); RED BLOOD COUNT 3.52 X10'6 (4.70-6.10); RED CELL DISTRIBUTION WIDTH 15.7 % (11.5-14.5); WHITE BLOOD COUNT 11.8 X10'3 (4.5-11.0)
[2024-11-11] MEDS ORDERED: INSULIN LISPRO 100 UNIT/ML INSULN.PEN MULTI-DOSE SQ SCH (21:00)
[2024-11-11 21:50] LABS: MEAN PLATELET VOLUME 7.6 FL (7.4-10.4)
[2024-11-11 21:52] LABS: HEMATOCRIT 28.6 % (42.0-52.0); HEMOGLOBIN 9.6 g/dl (14.0-17.9); MEAN CORPUSCULAR HEMOGLOBIN 28.1 PG (27.0-31.0); MEAN CORPUSCULAR HGB CONC 33.6 g/dL (33.0-36.5); MEAN CORPUSCULAR VOLUME 83.7 FL (78-98); PLATELET COUNT 704 X10'3 (140-440); RED BLOOD COUNT 3.42 X10'6 (4.70-6.10); WHITE BLOOD COUNT 11.2 X10'3 (4.5-11.0)
[2024-11-11 23:02] LABS: URINE AMPHETAMINE SCREEN NEGATIVE (Neg); URINE BARBITUATE SCREEN NEGATIVE (Neg); URINE BENZODIAZEPINES SCREEN NEGATIVE (Neg); URINE CANNABINOID SCREEN NEGATIVE (Neg); URINE COCAINE SCREEN NEGATIVE (Neg); URINE METHADONE SCREEN NEGATIVE (Neg); URINE OPIATE SCREEN POSITIVE (Neg); URINE PHENCYCLIDINE SCREEN NEGATIVE (Neg)
[2024-11-12] VITALS (23 sets, daily range): BP systolic 100–172; BP diastolic 68–145; PULSE 72–104; RESP 12–18; TEMP 97.1–98.7; O2SAT 96–100
[2024-11-12 10:38] LABS: BASOPHILS # (AUTO) 0.1 X10'3 (0-0.2); BASOPHILS % (AUTO) 1.1 % (0-1); EOSINOPHILS # (AUTO) 0.1 X10'3 (0-0.9); EOSINOPHILS % (AUTO) 1.6 % (0-6); HEMATOCRIT 27.8 % (42.0-52.0); HEMOGLOBIN 9.4 g/dl (14.0-17.9); LYMPHOCYTES % (AUTO) 27.7 % (21-51); MEAN CORPUSCULAR HEMOGLOBIN 28.1 PG (27.0-31.0); MEAN CORPUSCULAR HGB CONC 33.7 g/dL (33.0-36.5); MEAN CORPUSCULAR VOLUME 83.3 FL (78-98); MEAN PLATELET VOLUME 7.6 FL (7.4-10.4); MONOCYTES # (AUTO) 0.8 X10'3 (0-0.9); MONOCYTES % (AUTO) 10.7 % (2-12); NEUTROPHILS # (AUTO) 4.2 X10'3 (1.8-7.7); NEUTROPHILS % (AUTO) 58.9 % (42-75); PLATELET COUNT 645 X10'3 (140-440); RED BLOOD COUNT 3.34 X10'6 (4.70-6.10); RED CELL DISTRIBUTION WIDTH 15.8 % (11.5-14.5); WHITE BLOOD COUNT 7.1 X10'3 (4.5-11.0)
[2024-11-12 10:50] LABS: ALANINE AMINOTRANSFERASE 13 U/L (12-78); ALBUMIN 1.7 G/DL (3.4-5.0); ALBUMIN/GLOBULIN RATIO 0.5 (1.1-1.5); ALKALINE PHOSPHATASE 99 IU/L (46-116); ANION GAP 5 (8-16); ASPARTATE AMINO TRANSFERASE 16 U/L (10-37); BILIRUBIN,TOTAL 0.2 MG/DL (0.1-1.0); BLOOD UREA NITROGEN 34 MG/DL (7-18); BUN/CREATININE RATIO 19.4 (10.0-20.0); CALCIUM 7.7 MG/DL (8.5-10.1); CHLORIDE 108 MMOL/L (99-107); CHOL/HDL RATIO 2.6 (0.00-4.99); CHOLESTEROL 125 MG/DL (0-200); CREATININE 1.75 MG/DL (0.60-1.10); GLUCOSE 97 MG/DL (70-104); HDL CHOLESTEROL 49 MG/DL (35-60); LDL CHOLESTEROL 49 MG/DL (50-100); MAGNESIUM 1.5 MG/DL (1.5-2.4); POTASSIUM 3.4 MMOL/L (3.5-5.1); SODIUM 140 MMOL/L (135-145); TOTAL CARBON DIOXIDE 27.2 MMOL/L (24-32); TOTAL PROTEIN 5.3 G/DL (6.4-8.2); TRIGLYCERIDES 190 MG/DL (20-135); eCRCL 40 ML/MIN; eGFR 48 ML/MIN
[2024-11-12] MEDS ORDERED: ondansetron/PF 4mg/2ml inj IV PRN (11:25)
[2024-11-12] MEDS ORDERED: morphine 2 MG/ML inj. syringe IV PRN (11:25)
[2024-11-12] MEDS ORDERED: fentaNYL/PF 50MCG/1 ML 2ML syringe IV PRN ×2 (11:25)
[2024-11-12] MEDS ORDERED: morphine 4 MG/ML inj SYRINge IV PRN (11:25)
[2024-11-12] MEDS ORDERED: hydrALAZINE 20mg/ml inj. IV PRN (11:25)
[2024-11-12] MEDS ORDERED: labetalol 20mg/4ml (5mg/ml) syringe IV PRN (11:25)
[2024-11-12] MEDS ORDERED: fentaNYL/PF 50MCG/1 ML 2ML syringe ONE (11:31)
[2024-11-12] MEDS ORDERED: succinylcholine 20mg/ml inj IV ONE (11:32)
[2024-11-12] MEDS ORDERED: propofol inj 20 ML IV ONE (11:32)
[2024-11-12] MEDS ORDERED: midazolam 1 mg/ML 2ml injection ONE (11:32)
[2024-11-12] MEDS ORDERED: sevoflurane 250ml liquid IH ONE (12:00)
[2024-11-12] MEDS: DEXTROSE 15 GM of carb/4 tabs (each vial/BOTTLE has 4 tablets) PO PRN (14:12)
[2024-11-12] MEDS: ringers solution, lacted 1,000 ML IV SCH (14:20)
[2024-11-12] MEDS: ondansetron/PF 4mg/2ml inj IV PRN (14:54)
[2024-11-12] MEDS: potassium Cl 20 mEq SR tablet PO PRN ×2 (15:01→20:22)
[2024-11-12] MEDS: VANCOMYCIN 750MG IV in NS 250 ML IV ONE (15:03)
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
[2024-11-13] VITALS (8 sets, daily range): BP systolic 133–186; BP diastolic 82–93; PULSE 70–89; RESP 14–22; TEMP 97.8–98.3; O2SAT 96–99
[2024-11-13 04:09] LABS: BASOPHILS # (AUTO) 0.1 X10'3 (0-0.2); BASOPHILS % (AUTO) 1.3 % (0-1); EOSINOPHILS # (AUTO) 0.1 X10'3 (0-0.9); HEMATOCRIT 26.8 % (42.0-52.0); HEMOGLOBIN 9.4 g/dl (14.0-17.9); LYMPHOCYTES # (AUTO) 2.5 X10'3 (1.1-4.8); MEAN CORPUSCULAR HEMOGLOBIN 29.1 PG (27.0-31.0); MEAN CORPUSCULAR HGB CONC 35.2 g/dL (33.0-36.5); MEAN CORPUSCULAR VOLUME 82.9 FL (78-98); MEAN PLATELET VOLUME 7.4 FL (7.4-10.4); MONOCYTES # (AUTO) 0.9 X10'3 (0-0.9); MONOCYTES % (AUTO) 12.1 % (2-12); NEUTROPHILS # (AUTO) 3.7 X10'3 (1.8-7.7); NEUTROPHILS % (AUTO) 50.6 % (42-75); PLATELET COUNT 578 X10'3 (140-440); RED BLOOD COUNT 3.23 X10'6 (4.70-6.10); RED CELL DISTRIBUTION WIDTH 16.2 % (11.5-14.5); WHITE BLOOD COUNT 7.4 X10'3 (4.5-11.0)
[2024-11-13] MEDS ORDERED: nystatin 15 GM powder TP PRN (04:10)
[2024-11-13 04:24] LABS: ALANINE AMINOTRANSFERASE 13 U/L (12-78); ALBUMIN 1.8 G/DL (3.4-5.0); ALBUMIN/GLOBULIN RATIO 0.5 (1.1-1.5); ALKALINE PHOSPHATASE 100 IU/L (46-116); ANION GAP 6 (8-16); ASPARTATE AMINO TRANSFERASE 19 U/L (10-37); BILIRUBIN,TOTAL 0.2 MG/DL (0.1-1.0); BLOOD UREA NITROGEN 19 MG/DL (7-18); BUN/CREATININE RATIO 12.1 (10.0-20.0); CALCIUM 7.9 MG/DL (8.5-10.1); CHLORIDE 110 MMOL/L (99-107); CREATININE 1.57 MG/DL (0.60-1.10); GLUCOSE 59 MG/DL (70-104); MAGNESIUM 1.4 MG/DL (1.5-2.4); POTASSIUM 3.9 MMOL/L (3.5-5.1); SODIUM 142 MMOL/L (135-145); TOTAL CARBON DIOXIDE 26.3 MMOL/L (24-32); TOTAL PROTEIN 5.3 G/DL (6.4-8.2); eCRCL 45 ML/MIN; eGFR 54 ML/MIN
[2024-11-13] MEDS: pantoprazole 40 MG vial IV SCH (09:35)
[2024-11-13] MEDS: labetalol 20mg/4ml (5mg/ml) syringe IV ONE (11:15)
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
[2024-11-13] MEDS: vancomycin inj. 750 MG in normal saline 250ml IV soln 250 ML IV SCH (16:27)
[2024-11-13] MEDS: hydrALAZINE 20mg/ml inj. IV SCH (19:06)
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
[2024-11-13] MEDS: magnesium Cl slow-release 64mg tablet PO PRN (22:50)
[2024-11-13] MEDS: morphine 4 MG/ML inj SYRINge IV ONE (22:51)
[2024-11-14] VITALS (8 sets, daily range): BP systolic 130–179; BP diastolic 67–94; PULSE 75–89; RESP 15–20; TEMP 92.8–98.1; O2SAT 96–98
[2024-11-14 00:04] LABS: ALANINE AMINOTRANSFERASE 13 U/L (12-78); ALBUMIN 1.8 G/DL (3.4-5.0); ALBUMIN/GLOBULIN RATIO 0.5 (1.1-1.5); ALKALINE PHOSPHATASE 108 IU/L (46-116); ANION GAP 9 (8-16); ASPARTATE AMINO TRANSFERASE 14 U/L (10-37); BILIRUBIN,TOTAL 0.2 MG/DL (0.1-1.0); BLOOD UREA NITROGEN 14 MG/DL (7-18); BUN/CREATININE RATIO 9.8 (10.0-20.0); CHLORIDE 108 MMOL/L (99-107); CREATININE 1.43 MG/DL (0.60-1.10); GLUCOSE 70 MG/DL (70-104); POTASSIUM 3.9 MMOL/L (3.5-5.1); SODIUM 141 MMOL/L (135-145); TOTAL PROTEIN 5.4 G/DL (6.4-8.2); eCRCL 49 ML/MIN; eGFR 60 ML/MIN
[2024-11-14] MEDS: HYDROmorphone inj. 0.5 MG/0.5 ML DISP.SYRIN IV PRN (02:31)
[2024-11-14 05:31] LABS: BASOPHILS # (AUTO) 0.1 X10'3 (0-0.2); BASOPHILS % (AUTO) 1.1 % (0-1); EOSINOPHILS # (AUTO) 0.3 X10'3 (0-0.9); EOSINOPHILS % (AUTO) 4.4 % (0-6); HEMATOCRIT 27.7 % (42.0-52.0); HEMOGLOBIN 9.4 g/dl (14.0-17.9); LYMPHOCYTES # (AUTO) 2.3 X10'3 (1.1-4.8); LYMPHOCYTES % (AUTO) 36.9 % (21-51); MEAN CORPUSCULAR HGB CONC 33.7 g/dL (33.0-36.5); MEAN CORPUSCULAR VOLUME 82.9 FL (78-98); MEAN PLATELET VOLUME 7.7 FL (7.4-10.4); MONOCYTES # (AUTO) 0.5 X10'3 (0-0.9); MONOCYTES % (AUTO) 8.6 % (2-12); PLATELET COUNT 553 X10'3 (140-440); RED BLOOD COUNT 3.34 X10'6 (4.70-6.10); WHITE BLOOD COUNT 6.1 X10'3 (4.5-11.0)
[2024-11-14 06:28] LABS: ALANINE AMINOTRANSFERASE 12 U/L (12-78); ALBUMIN 1.7 G/DL (3.4-5.0); ALBUMIN/GLOBULIN RATIO 0.5 (1.1-1.5); ALKALINE PHOSPHATASE 100 IU/L (46-116); ANION GAP 7 (8-16); ASPARTATE AMINO TRANSFERASE 9 U/L (10-37); BILIRUBIN,TOTAL 0.1 MG/DL (0.1-1.0); BLOOD UREA NITROGEN 14 MG/DL (7-18); BUN/CREATININE RATIO 8.8 (10.0-20.0); CALCIUM 7.9 MG/DL (8.5-10.1); CHLORIDE 109 MMOL/L (99-107); CREATININE 1.59 MG/DL (0.60-1.10); GLUCOSE 130 MG/DL (70-104); MAGNESIUM 1.5 MG/DL (1.5-2.4); POTASSIUM 4.2 MMOL/L (3.5-5.1); SODIUM 141 MMOL/L (135-145); TOTAL CARBON DIOXIDE 24.6 MMOL/L (24-32); TOTAL PROTEIN 5.1 G/DL (6.4-8.2); eCRCL 44 ML/MIN; eGFR 53 ML/MIN
[2024-11-14] MEDS: PERFLUTREN PROTEIN-A MICROSPHR (Optison) 0.22 MG/ML 3ML VIAL IV ONE (07:10)
[2024-11-14] MEDS: hyDRALAzine 10mg tablet PO SCH (08:01)
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
--- NOTE | 2024-11-14 17:20 | PROGRESS NOTE ---
Progress Note ID Providers to CC ~ Progress Note Progress Note: Antibiotic Days: Vanco 3 Lines: PIV Micro: 11/10 Urine- Proteus 11/10 Blood- MRSA 11/13- Blood- ngtd Subjective: Patient was still under the blanket but he was talkative and had no complaints today Objective: Vitals: Afebrile, 86, 15, 166/93, 99% on RA General: Alert, NAD CV: Regular Resp: Nonlabored Abd: Soft, nontender, nondistended Ext: R AKA stable Lines: PIV ok Laboratory Tests 11/14/24 05:13 Assessment: // MRSA septicmeia, this seems to be a change in his clinical status since [facility] discharge though blood cultures were last negative there on 10/27. 2D echo pending. Repeats 11/13 ngtd // MATTHEW, improving // Recent aspiration s/p 7 days of Merrem // R anterior tibial osteomyelitis s/p amputation // DM with diabetic gastroparesis // Hx CDI // Hx Herpes encephalitis // Antibiotic Allergies: none known Plan: - Continue Vanco - Follow up repeat blood cultures to ensure clearance - Follow up 2D echo to assess valves - Anticipate need for 2 weeks of therapy; please hold indwelling access until blood cultures are clear - Monitor Cr - Wound care - Physical therapy - Will continue to follow YANETH JULES DO November 14, 2024 17:20
[2024-11-14] MEDS: insulin Lispro (HumaLOG) vial - multi-dose SQ ONE (21:22)
[2024-11-14] MEDS: INSULIN LISPRO 100 UNIT/ML INSULN.PEN MULTI-DOSE SQ ONE (21:25)
[2024-11-15] VITALS (7 sets, daily range): BP systolic 141–180; BP diastolic 83–100; PULSE 80–90; RESP 13–20; TEMP 97.3–98.1; O2SAT 96–98
[2024-11-15] MEDS: INSULIN LISPRO 100 UNIT/ML INSULN.PEN MULTI-DOSE SQ ONE (00:25)
[2024-11-15] MEDS: amLODIPine 5mg tablet PO ONE (02:58)
[2024-11-15] MEDS: DEXTROSE 15 GM of carb/4 tabs (each vial/BOTTLE has 4 tablets) PO PRN (07:12)
--- NOTE | 2024-11-15 07:13 | CARDIOLOGY REPORT ---
APPROVED REPORT EXAM: Comprehensive 2D, Doppler, and color-flow Echocardiogram. 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 139.1 cm/s AoV VTI 26.8 cm AO Peak GR. 7.7 mmHg AO Mean GR. 4 mmHg LVOT VTI 23.29 cm LVOT Peak Fadi. 120.9 cm/s BINA(VTI)/BSA 2.57 cm2/m2 BINA (VTI) 2.57 cm2 Mitral Valve MV E Velocity 75.8 cm/s MV Peak Gr. 3 mmHg MV DECEL TIME 156 ms MV A Velocity 63.8 cm/s MV PHT 48 ms E/A Ratio 1.2 MVA (PHT) 4.58 cm2 MV VMax85.6 cm/s TDI Medial E' P. V 10.90 cm/s E/Medial E' 7.0 Tricuspid Valve TR P. Velocity 228 cm/s RAP ESTIMATE 10 mmHg TR Peak Gr. 21 mmHg RVSP 31 mmHg Pulmonary Vein S1 Velocity 48.4 cm/s D2 Velocity 47.1 cm/s PVa Fnmyncul03.5 cm/s PVa [id number] msec LEFT VENTRICLE Normal LV size and wall thickness. Overall systolic function is normal. LVEF is 55%. RIGHT VENTRICLE RV is normal size and function. RVSP is estimated at 31 mmHG. ATRIA The left atrium size is normal. AORTIC VALVE Trileaflet AV appears sclerotic without stenosis. No insufficiency. MITRAL VALVE MV is thickened with no annular calcification or stenosis. Trace mitral regurgitation. TRICUSPID VALVE The tricuspid valve is normal in structure. Trace tricuspid regurgitation. PULMONIC VALVE The pulmonary valve is normal in structure. Trace pulmonic regurgitation. GREAT VESSELS The aortic root is normal in size. The ascending aorta is normal in size. The IVC is normal in size a nd collapses >50% with inspiration. PERICARDIUM Trivial pericardial effusion with no evidence of hemodynamic compromise. Other Information Study Quality: Adequate Conclusion Normal LV size and wall thickness. Overall systolic function is normal. LVEF is 55%. RV is normal size and function. RVSP is estimated at 31 mmHG. The left atrium size is normal. Trileaflet AV appears sclerotic without stenosis. No insufficiency. MV is thickened with no annular calcification or stenosis. Trace mitral regurgitation. The tricuspid valve is normal in structure. Trace tricuspid regurgitation. The pulmonary valve is normal in structure. Trace pulmonic regurgitation. Trivial pericardial effusion with no evidence of hemodynamic compromise.
[2024-11-15 07:57] LABS: EOSINOPHILS # (AUTO) 0.2 X10'3 (0-0.9)
[2024-11-15 07:58] LABS: BASOPHILS # (AUTO) 0.1 X10'3 (0-0.2); BASOPHILS % (AUTO) 0.8 % (0-1); EOSINOPHILS % (AUTO) 2.5 % (0-6); HEMATOCRIT 33.4 % (42.0-52.0); HEMOGLOBIN 11.3 g/dl (14.0-17.9); LYMPHOCYTES # (AUTO) 4.1 X10'3 (1.1-4.8); LYMPHOCYTES % (AUTO) 48.2 % (21-51); MEAN CORPUSCULAR HGB CONC 33.7 g/dL (33.0-36.5); MEAN PLATELET VOLUME 8.4 FL (7.4-10.4); MONOCYTES # (AUTO) 0.8 X10'3 (0-0.9); MONOCYTES % (AUTO) 8.7 % (2-12); NEUTROPHILS # (AUTO) 3.4 X10'3 (1.8-7.7); NEUTROPHILS % (AUTO) 39.8 % (42-75); PLATELET COUNT 549 X10'3 (140-440); RED BLOOD COUNT 4.02 X10'6 (4.70-6.10); WHITE BLOOD COUNT 8.6 X10'3 (4.5-11.0)
[2024-11-15 08:08] LABS: ALANINE AMINOTRANSFERASE 13 U/L (12-78); ALBUMIN 2.2 G/DL (3.4-5.0); ALBUMIN/GLOBULIN RATIO 0.6 (1.1-1.5); ALKALINE PHOSPHATASE 120 IU/L (46-116); ANION GAP 9 (8-16); ASPARTATE AMINO TRANSFERASE 18 U/L (10-37); BILIRUBIN,TOTAL 0.3 MG/DL (0.1-1.0); BLOOD UREA NITROGEN 21 MG/DL (7-18); BUN/CREATININE RATIO 11.7 (10.0-20.0); CALCIUM 8.5 MG/DL (8.5-10.1); CHLORIDE 102 MMOL/L (99-107); CREATININE 1.79 MG/DL (0.60-1.10); MAGNESIUM 1.7 MG/DL (1.5-2.4); POTASSIUM 4.1 MMOL/L (3.5-5.1); SODIUM 137 MMOL/L (135-145); TOTAL CARBON DIOXIDE 25.9 MMOL/L (24-32); TOTAL PROTEIN 6.2 G/DL (6.4-8.2); eCRCL 39 ML/MIN; eGFR 47 ML/MIN
[2024-11-15 08:11] LABS: GLUCOSE 36 MG/DL (70-104)
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
[2024-11-15] MEDS: VANCOMYCIN LEVEL IV ONE (14:30)
[2024-11-16] VITALS (10 sets, daily range): BP systolic 119–153; BP diastolic 48–92; PULSE 77–91; RESP 11–18; TEMP 97.3–98.2; O2SAT 92–98
[2024-11-16] MEDS: insulin glargine (Lantus) VIAL- multi-dose SQ ONE (00:10)
[2024-11-16] MEDS: insulin glargine (Lantus) pen - multi-dose SQ ONE (00:16)
[2024-11-16 06:55] LABS: BASOPHILS # (AUTO) 0.1 X10'3 (0-0.2); BASOPHILS % (AUTO) 1.8 % (0-1); EOSINOPHILS # (AUTO) 0.2 X10'3 (0-0.9); EOSINOPHILS % (AUTO) 2.4 % (0-6); HEMATOCRIT 28.9 % (42.0-52.0); HEMOGLOBIN 9.9 g/dl (14.0-17.9); LYMPHOCYTES # (AUTO) 3.4 X10'3 (1.1-4.8); LYMPHOCYTES % (AUTO) 46.2 % (21-51); MEAN CORPUSCULAR HEMOGLOBIN 28.7 PG (27.0-31.0); MEAN CORPUSCULAR HGB CONC 34.3 g/dL (33.0-36.5); MEAN CORPUSCULAR VOLUME 83.5 FL (78-98); MEAN PLATELET VOLUME 8.6 FL (7.4-10.4); MONOCYTES # (AUTO) 0.6 X10'3 (0-0.9); MONOCYTES % (AUTO) 8.2 % (2-12); NEUTROPHILS % (AUTO) 41.4 % (42-75); PLATELET COUNT 434 X10'3 (140-440); RED BLOOD COUNT 3.46 X10'6 (4.70-6.10); WHITE BLOOD COUNT 7.3 X10'3 (4.5-11.0)
[2024-11-16 07:28] LABS: ALANINE AMINOTRANSFERASE 16 U/L (12-78); ALBUMIN/GLOBULIN RATIO 0.5 (1.1-1.5); ALKALINE PHOSPHATASE 112 IU/L (46-116); ANION GAP 8 (8-16); ASPARTATE AMINO TRANSFERASE 11 U/L (10-37); BILIRUBIN,TOTAL 0.1 MG/DL (0.1-1.0); BLOOD UREA NITROGEN 28 MG/DL (7-18); BUN/CREATININE RATIO 16.4 (10.0-20.0); CALCIUM 8.4 MG/DL (8.5-10.1); CHLORIDE 101 MMOL/L (99-107); CREATININE 1.71 MG/DL (0.60-1.10); GLUCOSE 82 MG/DL (70-104); POTASSIUM 4.8 MMOL/L (3.5-5.1); SODIUM 134 MMOL/L (135-145); TOTAL CARBON DIOXIDE 24.9 MMOL/L (24-32); TOTAL PROTEIN 5.7 G/DL (6.4-8.2); eCRCL 41 ML/MIN; eGFR 49 ML/MIN
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
[2024-11-16] MEDS: INSULIN LISPRO 100 UNIT/ML INSULN.PEN MULTI-DOSE SQ SCH (18:00)
[2024-11-16] MEDS: insulin glargine (Lantus) pen - multi-dose SQ SCH (23:04)
[2024-11-17] VITALS (7 sets, daily range): BP systolic 132–158; BP diastolic 70–97; PULSE 78–86; RESP 12–20; TEMP 97.2–97.9; O2SAT 96–100
--- NOTE | 2024-11-17 05:37 | ELECTROCARDIOGRAPH REPORT ---
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 MADELAINE Roberts Measurements Intervals [place]ell Rate: 76 P: 72 DC: 158 QRS: 85 QRSD: 80 T: 59 QT: 378 QTc: 426 Interpretive Statements Sinus rhythm RSR' in V1 or V2, right VCD or RVH Abnormal T, consider ischemia, anterior leads ST elev, probable normal early repol pattern Electronically Signed On 11-17-2024 19:13:[address] MADELAINE Roberts Please click the below link to view image of tracing.
[2024-11-17 08:35] LABS: BASOPHILS # (AUTO) 0.1 X10'3 (0-0.2); BASOPHILS % (AUTO) 1.1 % (0-1); EOSINOPHILS # (AUTO) 0.2 X10'3 (0-0.9); EOSINOPHILS % (AUTO) 2.2 % (0-6); HEMATOCRIT 29.4 % (42.0-52.0); HEMOGLOBIN 9.9 g/dl (14.0-17.9); LYMPHOCYTES # (AUTO) 2.9 X10'3 (1.1-4.8); LYMPHOCYTES % (AUTO) 32.1 % (21-51); MEAN CORPUSCULAR HEMOGLOBIN 28.4 PG (27.0-31.0); MEAN CORPUSCULAR HGB CONC 33.7 g/dL (33.0-36.5); MEAN CORPUSCULAR VOLUME 84.1 FL (78-98); MEAN PLATELET VOLUME 8.1 FL (7.4-10.4); MONOCYTES # (AUTO) 0.7 X10'3 (0-0.9); MONOCYTES % (AUTO) 7.6 % (2-12); NEUTROPHILS # (AUTO) 5.2 X10'3 (1.8-7.7); PLATELET COUNT 434 X10'3 (140-440); RED CELL DISTRIBUTION WIDTH 16.3 % (11.5-14.5); WHITE BLOOD COUNT 9.1 X10'3 (4.5-11.0)
[2024-11-17 08:50] LABS: ALANINE AMINOTRANSFERASE 18 U/L (12-78); ALBUMIN 2.1 G/DL (3.4-5.0); ALBUMIN/GLOBULIN RATIO 0.5 (1.1-1.5); ALKALINE PHOSPHATASE 122 IU/L (46-116); ANION GAP 5 (8-16); ASPARTATE AMINO TRANSFERASE 23 U/L (10-37); BILIRUBIN,TOTAL 0.2 MG/DL (0.1-1.0); BLOOD UREA NITROGEN 42 MG/DL (7-18); BUN/CREATININE RATIO 18.7 (10.0-20.0); CALCIUM 8.1 MG/DL (8.5-10.1); CHLORIDE 98 MMOL/L (99-107); CREATININE 2.25 MG/DL (0.60-1.10); GLUCOSE 247 MG/DL (70-104); SODIUM 127 MMOL/L (135-145); TOTAL CARBON DIOXIDE 23.7 MMOL/L (24-32); TOTAL PROTEIN 6.1 G/DL (6.4-8.2); eCRCL 31 ML/MIN; eGFR 36 ML/MIN
[2024-11-17 08:54] LABS: POTASSIUM 5.8 MMOL/L (3.5-5.1)
[2024-11-17 11:04] LABS: BILIRUBIN,URINE NEGATIVE (Neg); CLARITY,URINE SLIGHTLY CLOUDY (Clear); COLOR,URINE YELLOW (Yellow); GLUCOSE, URINE 500 mg/dl (Neg); KETONES,URINE NEGATIVE (Neg); LEUKOCYTE ESTERASE ,URINE MODERATE (Neg); NITRITES, URINE NEGATIVE (Neg); OCCULT BLOOD,URINE TRACE-INTACT (Neg); PH,URINE 6.5 (4.8-8.0); PROTEIN,URINE 100 mg/dl (Neg); UROBILINOGEN,URINE 0.2 E.U/dL (0.2-1.0)
[2024-11-17 11:23] LABS: TOTAL PROTEIN,URINE RANDOM 135.6 MG/DL
[2024-11-17 11:25] LABS: UA COLLECTION TYPE VOIDED
[2024-11-17 11:26] LABS: BACTERIA,URINE 2+ /HPF (Neg); RBC,URINE 0-2 /HPF (0-2); SQUAMOUS EPITHELIAL CELL,UR FEW /LPF (FEW); WBC,URINE 50-100 /HPF (0-4)
[2024-11-17 11:27] LABS: WBC CLUMPS,URINE MODERATE /HPF (NEGATIVE)
[2024-11-17 11:28] LABS: OSMOLALITY 292 MOSM/K (280-300)
[2024-11-17] MEDS: HYDROcodone/acetaminophen 5mg/325mg tablet PO PRN (17:48)
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
--- NOTE | 2024-11-17 19:30 | PROGRESS NOTE ---
Progress Note ID Providers to CC ~ Progress Note Progress Note: Antibiotic Days: Vanco 6 Lines: PIV Micro: 11/10 Urine- Proteus 11/10 Blood- MRSA 11/13-6 Blood- ngtd 11/17 Urine- ngtd Subjective: Patient was interactive today. He understood he would be getting a line for his antibiotic therapy. Objective: Vitals: Afebrile, 84, 16, 132/70, 99% on RA General: Alert, NAD CV: Regular Resp: Nonlabored Abd: Soft, nontender, nondistended Ext: R AKA stable Lines: PIV ok Laboratory Tests 11/17/24 08:26 11/15 Echo Normal LV size and wall thickness. Overall systolic function is normal. LVEF is 55%. RV is normal size and function. RVSP is estimated at 31 mmHG. The left atrium size is normal. Trileaflet AV appears sclerotic without stenosis. No insufficiency. MV is thickened with no annular calcification or stenosis. Trace mitral regurgitation. The tricuspid valve is normal in structure. Trace tricuspid regurgitation. The pulmonary valve is normal in structure. Trace pulmonic regurgitation. Trivial pericardial effusion with no evidence of hemodynamic compromise. Assessment: // MRSA septicmeia. Valves ok on 2D echo. Repeats cleared 11/13 // MATTHEW, Cr up again // R anterior tibial osteomyelitis s/p amputation // DM with diabetic gastroparesis // Hx CDI // Hx Herpes encephalitis // Antibiotic Allergies: none known Plan: - Continue Vanco until 11/27 - Weekly CBC, CMP - Wound care - Physical therapy - Will continue to follow YANETH JULES DO November 17, 2024 19:30
[2024-11-17] MEDS: HYDROcodone/acetaminophen 10/325mg tab PO ONE (22:08)
[2024-11-18] VITALS (7 sets, daily range): BP systolic 124–166; BP diastolic 77–95; PULSE 87–103; RESP 13–18; TEMP 96.9–97.9; O2SAT 93–99
[2024-11-18] MEDS: morphine 2 MG/ML inj. syringe IV ONE (00:06)
[2024-11-18] MEDS: vancomycin inj. 750 MG in normal saline 250ml IV soln 250 ML IV SCH (00:08)
[2024-11-18] MEDS: predniSONE 20 mg tablet PO SCH (07:47)
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
[2024-11-18 11:36] LABS: BASOPHILS # (AUTO) 0.1 X10'3 (0-0.2); BASOPHILS % (AUTO) 0.7 % (0-1); EOSINOPHILS # (AUTO) 0.1 X10'3 (0-0.9); EOSINOPHILS % (AUTO) 0.7 % (0-6); HEMATOCRIT 28.5 % (42.0-52.0); HEMOGLOBIN 9.6 g/dl (14.0-17.9); LYMPHOCYTES # (AUTO) 1.8 X10'3 (1.1-4.8); LYMPHOCYTES % (AUTO) 16.3 % (21-51); MEAN CORPUSCULAR HEMOGLOBIN 28.1 PG (27.0-31.0); MEAN CORPUSCULAR HGB CONC 33.6 g/dL (33.0-36.5); MEAN CORPUSCULAR VOLUME 83.8 FL (78-98); MEAN PLATELET VOLUME 8.5 FL (7.4-10.4); MONOCYTES # (AUTO) 0.4 X10'3 (0-0.9); MONOCYTES % (AUTO) 3.4 % (2-12); NEUTROPHILS # (AUTO) 8.8 X10'3 (1.8-7.7); NEUTROPHILS % (AUTO) 78.9 % (42-75); PLATELET COUNT 236 X10'3 (140-440); RED CELL DISTRIBUTION WIDTH 16.1 % (11.5-14.5); WHITE BLOOD COUNT 11.2 X10'3 (4.5-11.0)
[2024-11-18 12:08] LABS: ALANINE AMINOTRANSFERASE 20 U/L (12-78); ALBUMIN 2.3 G/DL (3.4-5.0); ALBUMIN/GLOBULIN RATIO 0.6 (1.1-1.5); ALKALINE PHOSPHATASE 134 IU/L (46-116); ANION GAP 12 (8-16); ASPARTATE AMINO TRANSFERASE 11 U/L (10-37); BILIRUBIN,TOTAL 0.2 MG/DL (0.1-1.0); BLOOD UREA NITROGEN 49 MG/DL (7-18); BUN/CREATININE RATIO 21.4 (10.0-20.0); CALCIUM 8.4 MG/DL (8.5-10.1); CHLORIDE 97 MMOL/L (99-107); CREATININE 2.29 MG/DL (0.60-1.10); GLUCOSE 252 MG/DL (70-104); POTASSIUM 5.3 MMOL/L (3.5-5.1); SODIUM 128 MMOL/L (135-145); TOTAL CARBON DIOXIDE 19.2 MMOL/L (24-32); eCRCL 31 ML/MIN; eGFR 35 ML/MIN
[2024-11-18 12:19] LABS: FERRITIN 186 NG/ML (26-388)
[2024-11-18] MEDS ORDERED: SODIUM ZIRCONIUM CYCLOSILICATE 10 GM POWD.PACK PO SCH (13:00)
[2024-11-18] MEDS: SODIUM ZIRCONIUM CYCLOSILICATE 10 GM POWD.PACK PO ONE (14:34)
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
[2024-11-19] MEDS: vancomycin 750mg inj ONE (00:22)
[2024-11-19] MEDS: temazepam 15mg capsule PO ONE (00:49)
[2024-11-19 06:40] VITALS: BP 161/68; PULSE 81; RESP 20; TEMP 97.7; O2SAT 97
[2024-11-19] MEDS: pantoprazole 40 MG vial IV SCH (07:35)
[2024-11-19 08:00] VITALS: RESP 18; O2SAT 98
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
[2024-11-19 10:53] VITALS: BP 151/85; PULSE 83; RESP 20; TEMP 98.2
[2024-11-19 11:53] LABS: BASOPHILS # (AUTO) 0.1 X10'3 (0-0.2); BASOPHILS % (AUTO) 0.8 % (0-1); EOSINOPHILS % (AUTO) 0.3 % (0-6); HEMATOCRIT 26.7 % (42.0-52.0); HEMOGLOBIN 8.9 g/dl (14.0-17.9); LYMPHOCYTES # (AUTO) 2.5 X10'3 (1.1-4.8); LYMPHOCYTES % (AUTO) 18.5 % (21-51); MEAN CORPUSCULAR HEMOGLOBIN 28.4 PG (27.0-31.0); MEAN CORPUSCULAR HGB CONC 33.3 g/dL (33.0-36.5); MEAN CORPUSCULAR VOLUME 85.1 FL (78-98); MEAN PLATELET VOLUME 9.1 FL (7.4-10.4); MONOCYTES # (AUTO) 1.1 X10'3 (0-0.9); MONOCYTES % (AUTO) 8.4 % (2-12); NEUTROPHILS # (AUTO) 9.8 X10'3 (1.8-7.7); PLATELET COUNT 446 X10'3 (140-440); RED BLOOD COUNT 3.14 X10'6 (4.70-6.10); RED CELL DISTRIBUTION WIDTH 16.7 % (11.5-14.5); WHITE BLOOD COUNT 13.6 X10'3 (4.5-11.0)
[2024-11-19 12:04] LABS: ALBUMIN 2.3 G/DL (3.4-5.0); ANION GAP 12 (8-16); BLOOD UREA NITROGEN 53 MG/DL (7-18); BUN/CREATININE RATIO 25.7 (10.0-20.0); CALCIUM 8.4 MG/DL (8.5-10.1); CHLORIDE 95 MMOL/L (99-107); CREATININE 2.06 MG/DL (0.60-1.10); GLUCOSE 278 MG/DL (70-104); POTASSIUM 4.5 MMOL/L (3.5-5.1); SODIUM 128 MMOL/L (135-145); TOTAL CARBON DIOXIDE 20.9 MMOL/L (24-32); eCRCL 34 ML/MIN; eGFR 40 ML/MIN
[2024-11-19 12:05] LABS: CALCIUM 8.2 MG/DL (8.5-10.1); PHOSPHORUS 3.8 MG/DL (2.3-4.5)
[2024-11-19 12:16] LABS: % IRON SATURATION 19 % (11-46); IRON 47 UG/DL (53-167); TOTAL IRON BINDING CAPACITY 247 UG/DL (259-388)
[2024-11-19 12:34] LABS: HIV ANTIBODY 1&2 RAPID NON-REACTIVE (Neg)
[2024-11-19] MEDS: normal saline 1000ml 1,000 ML IV ONE (12:39)
[2024-11-19] MEDS: NUT.TX.IMP.RENAL FXN,LAC-REDUC (Nepro) 237 ML VANILLA PO SCH (12:49)
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
[2024-11-19] MEDS: INSULIN LISPRO 100 UNIT/ML INSULN.PEN MULTI-DOSE SQ SCH (16:53)
[2024-11-19 18:00] VITALS: BP 148/86; PULSE 88; RESP 18; TEMP 98.2; O2SAT 98
[2024-11-19 20:00] VITALS: RESP 16; O2SAT 98
[2024-11-19] MEDS: insulin glargine (Lantus) pen - multi-dose SQ SCH (21:05)
[2024-11-19 22:00] VITALS: BP 173/97; PULSE 87; RESP 16; TEMP 98.1; O2SAT 98
[2024-11-19] MEDS: hyDRALAzine 10mg tablet PO ONE (22:51)
[2024-11-20] VITALS (9 sets, daily range): BP systolic 128–164; BP diastolic 76–107; PULSE 82–95; RESP 7–20; TEMP 97.3–98.6; O2SAT 96–99
[2024-11-20] MEDS: amLODIPine 5mg tablet PO ONE (02:49)
[2024-11-20 04:29] LABS: BASOPHILS # (AUTO) 0.1 X10'3 (0-0.2); EOSINOPHILS % (AUTO) 0 % (0-6); HEMATOCRIT 29.2 % (42.0-52.0); HEMOGLOBIN 9.7 g/dl (14.0-17.9); LYMPHOCYTES # (AUTO) 1.2 X10'3 (1.1-4.8); LYMPHOCYTES % (AUTO) 12.7 % (21-51); MEAN CORPUSCULAR HEMOGLOBIN 28.4 PG (27.0-31.0); MEAN CORPUSCULAR HGB CONC 33.3 g/dL (33.0-36.5); MEAN CORPUSCULAR VOLUME 85.2 FL (78-98); MEAN PLATELET VOLUME 8.6 FL (7.4-10.4); MONOCYTES # (AUTO) 0.5 X10'3 (0-0.9); MONOCYTES % (AUTO) 5.3 % (2-12); NEUTROPHILS # (AUTO) 7.7 X10'3 (1.8-7.7); PLATELET COUNT 468 X10'3 (140-440); RED BLOOD COUNT 3.43 X10'6 (4.70-6.10); RED CELL DISTRIBUTION WIDTH 17.1 % (11.5-14.5); WHITE BLOOD COUNT 9.5 X10'3 (4.5-11.0)
[2024-11-20 05:19] LABS: ALBUMIN 2.3 G/DL (3.4-5.0); ANION GAP 8 (8-16); BLOOD UREA NITROGEN 51 MG/DL (7-18); BUN/CREATININE RATIO 23.6 (10.0-20.0); CALCIUM 8.2 MG/DL (8.5-10.1); CHLORIDE 94 MMOL/L (99-107); CREATININE 2.16 MG/DL (0.60-1.10); PHOSPHORUS 4.3 MG/DL (2.3-4.5); POTASSIUM 5.2 MMOL/L (3.5-5.1); SODIUM 125 MMOL/L (135-145); eCRCL 33 ML/MIN; eGFR 37 ML/MIN
[2024-11-20 05:24] LABS: GLUCOSE 527 MG/DL (70-104)
[2024-11-20] MEDS: INSULIN LISPRO 100 UNIT/ML INSULN.PEN MULTI-DOSE SQ STA (05:52)
[2024-11-20] MEDS: normal saline 1000ml 1,000 ML IV SCH (07:20)
[2024-11-20] MEDS: INSULIN LISPRO 100 UNIT/ML INSULN.PEN MULTI-DOSE SQ ONE (07:35)
[2024-11-20] MEDS: amLODIPine 5mg tablet PO SCH (09:04)
[2024-11-20] MEDS: vancomycin inj. 750 MG in normal saline 250ml IV soln 250 ML IV SCH (09:05)
[2024-11-20 09:16] LABS: HBSAG SCREEN Negative (Negative)
[2024-11-20] MEDS: INSULIN LISPRO 100 UNIT/ML INSULN.PEN MULTI-DOSE SQ SCH (09:34)
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
[2024-11-20 11:16] LABS: ANTISTREPTOLYSIN O AB 53.3 IU/mL (0.0-200.0); COMPLEMENT C3, SERUM 139 mg/dL (82-167); COMPLEMENT C4, SERUM 29 mg/dL (12-38); IMMUNOGLOBULIN A, QN, SERUM 384 mg/dL (90-386); IMMUNOGLOBULIN G, QN, SERUM 1019 mg/dL (603-1613); IMMUNOGLOBULIN M, QN, SERUM 68 mg/dL (20-172); TRANSFERRIN 212 mg/dL (177-329)
[2024-11-20] MEDS: lisinopril 10 MG tablet PO SCH (13:24)
[2024-11-20 15:14] LABS: ANTINUCLEAR ANTIBODIES Negative (Negative)
[2024-11-20 17:23] LABS: ACTH, PLASMA 1.7 pg/mL (7.2-63.3)
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
--- NOTE | 2024-11-20 21:26 | PROGRESS NOTE ---
Progress Note ID Providers to CC ~ Progress Note Progress Note: Antibiotic Days: Vanco 9 Lines: Midline Micro: 11/10 Urine- Proteus 11/10 Blood- MRSA 11/13- Blood- negative 11/17 Urine- negative Subjective: Patient was communicative under his blanket. Noted that he has now seen nephrology for MATTHEW and that he is on Prednisone for Urine Eos Objective: Vitals: Afebrile, 91, 20, 155/107, 99% on RA General: Alert, NAD Resp: No conversational dyspnea Abd: Soft, nontender, nondistended Ext: R AKA Lines: Midline occlusively dressed Laboratory Tests 11/20/24 04:17 Assessment: // MRSA septicmeia. Valves ok on 2D echo. Repeats cleared 11/13 // MATTHEW, Urine eos noted. Now seen by nephro and on prednisone // R anterior tibial osteomyelitis s/p amputation // DM with diabetic gastroparesis // Hx CDI // Hx Herpes encephalitis // Antibiotic Allergies: none known Plan: - Continue renally adjusted Vanco until 11/27. Alternative antibiotic can be considered if there is concern for AIN. - Monitor WBC count/eos, Cr - Wound care - Physical therapy - Will continue to follow YANETH JULES DO November 20, 2024 21:26
[2024-11-20] MEDS: labetalol 100mg tablet PO SCH (21:46)
[2024-11-20] MEDS: insulin glargine (Lantus) pen - multi-dose SQ SCH (21:46)
[2024-11-20] MEDS: Melatonin 3mg tablet PO ONE (23:17)
[2024-11-21 05:27] LABS: HEPATITIS C VIRUS ANTIBODY Non Reactive (Non Reactive)
[2024-11-21 06:30] VITALS: BP 139/79; PULSE 79; RESP 14; TEMP 97.9; O2SAT 95
[2024-11-21] MEDS: VANCOMYCIN LEVEL IV ONE (07:30)
[2024-11-21] MEDS: predniSONE 20 mg tablet PO SCH (08:29)
[2024-11-21 10:42] LABS: ALBUMIN 2.2 G/DL (3.4-5.0); ANION GAP 14 (8-16); BLOOD UREA NITROGEN 67 MG/DL (7-18); BUN/CREATININE RATIO 24.5 (10.0-20.0); CHLORIDE 90 MMOL/L (99-107); CREATININE 2.73 MG/DL (0.60-1.10); PHOSPHORUS 4.9 MG/DL (2.3-4.5); POTASSIUM 5.3 MMOL/L (3.5-5.1); SODIUM 121 MMOL/L (135-145); TOTAL CARBON DIOXIDE 16.7 MMOL/L (24-32); eCRCL 26 ML/MIN; eGFR 29 ML/MIN
[2024-11-21 10:59] LABS: GLUCOSE 544 MG/DL (70-104)
[2024-11-21 11:20] LABS: VANCOMYCIN,TROUGH 57.6 ug/mL (10.0-20.0)
[2024-11-21] MEDS: insulin Lispro (HumaLOG) vial - multi-dose SQ ONE (12:06)
[2024-11-21] MEDS: TOLVAPTAN 30 MG TABLET PO ONE (12:19)
[2024-11-21 12:31] LABS: BASOPHILS % (AUTO) 0.3 % (0-1); EOSINOPHILS % (AUTO) 0.1 % (0-6); HEMATOCRIT 27.8 % (42.0-52.0); HEMOGLOBIN 9.3 g/dl (14.0-17.9); LYMPHOCYTES # (AUTO) 1.5 X10'3 (1.1-4.8); MEAN CORPUSCULAR HEMOGLOBIN 27.9 PG (27.0-31.0); MEAN CORPUSCULAR HGB CONC 33.3 g/dL (33.0-36.5); MEAN CORPUSCULAR VOLUME 83.8 FL (78-98); MEAN PLATELET VOLUME 8.4 FL (7.4-10.4); MONOCYTES # (AUTO) 1.3 X10'3 (0-0.9); MONOCYTES % (AUTO) 11.5 % (2-12); NEUTROPHILS # (AUTO) 8.6 X10'3 (1.8-7.7); NEUTROPHILS % (AUTO) 75.1 % (42-75); PLATELET COUNT 476 X10'3 (140-440); RED BLOOD COUNT 3.32 X10'6 (4.70-6.10); RED CELL DISTRIBUTION WIDTH 16.9 % (11.5-14.5); WHITE BLOOD COUNT 11.5 X10'3 (4.5-11.0)
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
[2024-11-21 15:08] LABS: TOTAL PROTEIN 24HR,URINE 4343.4 MG/24HR (28-141)
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
[2024-11-21 18:00] VITALS: BP 135/79; PULSE 91; RESP 18; TEMP 97.5; O2SAT 99
[2024-11-22 06:00] VITALS: BP 158/92; PULSE 95; RESP 18; TEMP 98; O2SAT 98
[2024-11-22] MEDS: VANCOMYCIN LEVEL IV ONE (08:17)
[2024-11-22] MEDS: pantoprazole 40mg Tablet.DR PO SCH (08:17)
[2024-11-22 08:30] VITALS: RESP 18; O2SAT 98
[2024-11-22 08:35] LABS: BASOPHILS # (AUTO) 0.1 X10'3 (0-0.2); BASOPHILS % (AUTO) 0.6 % (0-1); EOSINOPHILS % (AUTO) 0 % (0-6); HEMATOCRIT 27.4 % (42.0-52.0); HEMOGLOBIN 9.3 g/dl (14.0-17.9); LYMPHOCYTES # (AUTO) 1.8 X10'3 (1.1-4.8); LYMPHOCYTES % (AUTO) 19.2 % (21-51); MEAN CORPUSCULAR HEMOGLOBIN 28.9 PG (27.0-31.0); MEAN CORPUSCULAR HGB CONC 34.1 g/dL (33.0-36.5); MEAN CORPUSCULAR VOLUME 84.7 FL (78-98); MEAN PLATELET VOLUME 8.9 FL (7.4-10.4); MONOCYTES # (AUTO) 1.1 X10'3 (0-0.9); MONOCYTES % (AUTO) 11.9 % (2-12); NEUTROPHILS # (AUTO) 6.3 X10'3 (1.8-7.7); NEUTROPHILS % (AUTO) 68.3 % (42-75); PLATELET COUNT 474 X10'3 (140-440); RED BLOOD COUNT 3.24 X10'6 (4.70-6.10); RED CELL DISTRIBUTION WIDTH 17.3 % (11.5-14.5); WHITE BLOOD COUNT 9.3 X10'3 (4.5-11.0)
[2024-11-22 08:55] LABS: ALBUMIN 2.3 G/DL (3.4-5.0); ANION GAP 11 (8-16); BLOOD UREA NITROGEN 83 MG/DL (7-18); BUN/CREATININE RATIO 26.7 (10.0-20.0); CHLORIDE 96 MMOL/L (99-107); CREATININE 3.11 MG/DL (0.60-1.10); GLUCOSE 292 MG/DL (70-104); PHOSPHORUS 5.1 MG/DL (2.3-4.5); POTASSIUM 5.2 MMOL/L (3.5-5.1); SODIUM 127 MMOL/L (135-145); TOTAL CARBON DIOXIDE 19.9 MMOL/L (24-32); eCRCL 23 ML/MIN; eGFR 25 ML/MIN
[2024-11-22 10:00] VITALS: BP 126/73; PULSE 91; RESP 18; TEMP 98.4; O2SAT 98
[2024-11-22] MEDS ORDERED: vancomycin/NS 1 GM ADD-VANTAGE 250 ML X 1 DOSE IV PRN (10:15)
[2024-11-22] MEDS: sodium bicarbonate (8.4%) inj. 100 MEQ in dextrose 5%-water 1,000 ML IV SCH (11:33)
[2024-11-22] MEDS: HYDROcodone/acetaminophen 10/325mg tab PO PRN (11:58)
--- NOTE | 2024-11-22 15:32 | PROGRESS NOTE ---
Progress Note Dictate Providers to CC ~ Central Line/PICC still needed: No Gerber Indications Met/Not Met: F/C Indications Not Met Antibiotic Ordered?: Yes Subjective Subjective The patient does NOT appear volume depleted. He has edema upper and lower extremities. right AKA awake, mentating well. not in any resp distress Creatinine continues to worsen. today it is 3.1. Objective Vitals Vital Signs Date Time Temp Pulse Resp B/P (MAP) Pulse Ox O2 Delivery O2 Flow Rate FiO2 11/22/24 13:00 18 11/22/24 10:00 98.4 91 126/73 (90) 98 Room Air 11/21/24 20:00 0.0 21 Lab Results: 11/22/24 0754 11/22/24 0754 Objective Vital Signs: As above General: Normal body habitus, no acute distress. Skin: No rashes, lumps, ulcers, blisters, purpura or petechiae HEENT: Anicteric sclera, EMA Neck: Supple and nontender without enlargement of the thyroid, or lymphadenopathy. Chest: Normal size and shape, no tenderness, CTA bilaterally Heart: Regular. No jugular venous distention, S1 and S2 heard , no gallop Abdomen: Soft and non tender no organomegaly,BS+ Extremities: ++ pedal edema with right aKa Neuro: Nonfocal. Advance Care Planning Advanced Care plannin - 30 Minutes Problem\Assessment\Plan Problems/Diagnosis: (1) MATTHEW (acute kidney injury) Assessment & Plan: appears to be due to Acute interstitial nephritis + contrast exposure . on prednisone. dose decreased due to the hyperglycemia and him tipping into DKA being a type 1 DM heading towards dialysis at this rate but he does not need it at this time. (2) DKA (diabetic ketoacidosis) Assessment & Plan: resolved. but flips into acidosis frequently, with hyeprglycemia. He has pseudohyponatermia from the hyperglycemia. However, he also has some true hyponatremia, with urine sodium >20 and was treatd with tolvaptan yesterday. Now the Na is up to 127. LUIS ALCAZAR MD November 22, 2024 15:32
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
[2024-11-22 18:00] VITALS: BP 120/77; PULSE 86; RESP 17; TEMP 96.9; O2SAT 98
[2024-11-22 22:00] VITALS: BP 141/95; PULSE 87; RESP 16; TEMP 97.8; O2SAT 99
[2024-11-22] MEDS: temazepam 15mg capsule PO PRN (22:00)
[2024-11-23] MEDS: VANCOMYCIN LEVEL IV SCH (03:00)
[2024-11-23 03:50] LABS: BASOPHILS % (AUTO) 0.3 % (0-1); EOSINOPHILS # (AUTO) 0.1 X10'3 (0-0.9); EOSINOPHILS % (AUTO) 0.6 % (0-6); HEMATOCRIT 24.2 % (42.0-52.0); HEMOGLOBIN 8.3 g/dl (14.0-17.9); LYMPHOCYTES # (AUTO) 2.3 X10'3 (1.1-4.8); LYMPHOCYTES % (AUTO) 26.1 % (21-51); MEAN CORPUSCULAR HEMOGLOBIN 28.9 PG (27.0-31.0); MEAN CORPUSCULAR HGB CONC 34.4 g/dL (33.0-36.5); MEAN PLATELET VOLUME 8.5 FL (7.4-10.4); MONOCYTES # (AUTO) 1.2 X10'3 (0-0.9); MONOCYTES % (AUTO) 13.8 % (2-12); NEUTROPHILS # (AUTO) 5.3 X10'3 (1.8-7.7); NEUTROPHILS % (AUTO) 59.2 % (42-75); PLATELET COUNT 431 X10'3 (140-440); RED BLOOD COUNT 2.88 X10'6 (4.70-6.10); RED CELL DISTRIBUTION WIDTH 17.1 % (11.5-14.5); WHITE BLOOD COUNT 8.9 X10'3 (4.5-11.0)
[2024-11-23 04:04] LABS: ALBUMIN 2.1 G/DL (3.4-5.0); ANION GAP 6 (8-16); BLOOD UREA NITROGEN 79 MG/DL (7-18); BUN/CREATININE RATIO 27.7 (10.0-20.0); CALCIUM 7.5 MG/DL (8.5-10.1); CHLORIDE 93 MMOL/L (99-107); CREATININE 2.85 MG/DL (0.60-1.10); GLUCOSE 372 MG/DL (70-104); PHOSPHORUS 4.8 MG/DL (2.3-4.5); POTASSIUM 4.8 MMOL/L (3.5-5.1); SODIUM 127 MMOL/L (135-145); TOTAL CARBON DIOXIDE 27.9 MMOL/L (24-32); VANCOMYCIN,RANDOM 17.9 ug/mL (20.0-30.0); eCRCL 25 ML/MIN; eGFR 27 ML/MIN
[2024-11-23 05:37] LABS: ALDOSTERONE <1.0 ng/dL (.)
[2024-11-23] MEDS ORDERED: TOLVAPTAN 30 MG TABLET PO ONE (08:00)
[2024-11-23] MEDS: TOLVAPTAN 30 MG TABLET PO ONE (09:57)
[2024-11-23 10:25] VITALS: RESP 18; O2SAT 100
[2024-11-23 11:00] VITALS: BP 135/69; PULSE 91; RESP 18; TEMP 97.9; O2SAT 97
--- NOTE | 2024-11-23 11:16 | PROGRESS NOTE ---
Progress Note Dictate Providers to CC ~ Central Line/PICC still needed: No Gerber Indications Met/Not Met: F/C Indications Not Met Antibiotic Ordered?: N/A Subjective Subjective 24/M with Acute interstitial nephritis (positive eosinophils in the urine) and MATTHEW, creatinine that went up to 3.1 and now it is slightly better at 2.8 Objective Vitals Vital Signs Date Time Temp Pulse Resp B/P (MAP) Pulse Ox O2 Delivery O2 Flow Rate FiO2 11/23/24 10:25 18 100 Room Air 11/23/24 08:47 93 11/22/24 22:00 97.8 141/95 (110) 11/21/24 20:00 0.0 21 Lab Results: 11/23/24 0330 11/23/24 0330 Objective Vital Signs: As above General: Normal body habitus, no acute distress. Skin: No rashes, lumps, ulcers, blisters, purpura or petechiae HEENT: Anicteric sclera, EMA Neck: Supple and nontender without enlargement of the thyroid, or lymphadenopathy. Chest: Normal size and shape, no tenderness, CTA bilaterally Heart: Regular. No jugular venous distention, S1 and S2 heard , no gallop Abdomen: Soft and non tender no organomegaly,BS+ Extremities: ++ pedal edema with right aKa Neuro: Nonfocal. Advance Care Planning Advanced Care plannin - 30 Minutes Problem\Assessment\Plan Problems/Diagnosis: (1) MATTHEW (acute kidney injury) Assessment & Plan: appears to be due to Acute interstitial nephritis + contrast exposure . on prednisone. dose decreased. creatinien is slightly better. (2) DKA (diabetic ketoacidosis) Assessment & Plan: resolved. but flips into acidosis frequently, with hyeprglycemia. He has pseudohyponatermia from the hyperglycemia. However, he also has some true hyponatremia, with urine sodium >20 and was treatd with tolvaptan yesterday. Now the Na is up to 127. LUIS ALCAZAR MD November 23, 2024 11:16
[2024-11-23] MEDS: dextrose 50%-water 50ml dispensing syringe IV PRN (11:25)
[2024-11-23] MEDS: HYDROcodone/acetaminophen 10/325mg tab PO SCH (14:22)
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
[2024-11-23 18:30] VITALS: BP 112/66; PULSE 86; RESP 17; TEMP 97.6; O2SAT 99
[2024-11-23 20:00] VITALS: RESP 16; O2SAT 99
[2024-11-23] MEDS: gabapentin 300mg capsule PO SCH (21:57)
[2024-11-23 23:00] VITALS: BP 103/57; PULSE 84; RESP 16; TEMP 97.8; O2SAT 99
[2024-11-24 06:00] VITALS: BP 113/45; PULSE 94; RESP 14; TEMP 97.7; O2SAT 99
[2024-11-24 06:12] LABS: BASOPHILS % (AUTO) 0.4 % (0-1); EOSINOPHILS % (AUTO) 0.3 % (0-6); HEMATOCRIT 25.5 % (42.0-52.0); HEMOGLOBIN 8.6 g/dl (14.0-17.9); LYMPHOCYTES # (AUTO) 2.2 X10'3 (1.1-4.8); LYMPHOCYTES % (AUTO) 22.9 % (21-51); MEAN CORPUSCULAR HEMOGLOBIN 28.5 PG (27.0-31.0); MEAN CORPUSCULAR HGB CONC 33.6 g/dL (33.0-36.5); MEAN CORPUSCULAR VOLUME 84.6 FL (78-98); MONOCYTES # (AUTO) 0.8 X10'3 (0-0.9); MONOCYTES % (AUTO) 8.9 % (2-12); NEUTROPHILS # (AUTO) 6.5 X10'3 (1.8-7.7); NEUTROPHILS % (AUTO) 67.5 % (42-75); PLATELET COUNT 475 X10'3 (140-440); RED BLOOD COUNT 3.02 X10'6 (4.70-6.10); RED CELL DISTRIBUTION WIDTH 17.1 % (11.5-14.5); WHITE BLOOD COUNT 9.6 X10'3 (4.5-11.0)
[2024-11-24 06:40] LABS: ALBUMIN 2.3 G/DL (3.4-5.0); ANION GAP 13 (8-16); BLOOD UREA NITROGEN 88 MG/DL (7-18); BUN/CREATININE RATIO 28.9 (10.0-20.0); CHLORIDE 95 MMOL/L (99-107); CREATININE 3.04 MG/DL (0.60-1.10); GLUCOSE 212 MG/DL (70-104); POTASSIUM 5.3 MMOL/L (3.5-5.1); SODIUM 130 MMOL/L (135-145); TOTAL CARBON DIOXIDE 21.9 MMOL/L (24-32); VANCOMYCIN,RANDOM 13.4 ug/mL (20.0-30.0); eCRCL 23 ML/MIN; eGFR 25 ML/MIN
[2024-11-24 08:00] VITALS: RESP 17; O2SAT 97
[2024-11-24 10:00] VITALS: BP 132/68; PULSE 101; RESP 18; TEMP 97.8; O2SAT 96
[2024-11-24] MEDS: vancomycin/NS 1 GM ADD-VANTAGE 250 ML X 1 DOSE IV ONE (10:18)
--- NOTE | 2024-11-24 15:23 | PROGRESS NOTE ---
Progress Note Dictate Providers to CC ~ Antibiotic Ordered?: N/A Subjective Subjective Finished course of vancomycin discontinued today, he reports doing well and has no specific complaints today, nurses report no new events since last evaluation, he had had improving creatinine it was 3.1, then improved to 2.8, today it is 3.05, continues to be on prednisone for AIN, continue current plan Objective Vitals Vital Signs Date Time Temp Pulse Resp B/P (MAP) Pulse Ox O2 Delivery O2 Flow Rate FiO2 11/24/24 12:26 16 11/24/24 10:00 97.8 101 132/68 (89) 96 Room Air 11/23/24 20:00 0.0 21 Lab Results: 11/24/24 0511/24/24524 Problem\Assessment\Plan Problems/Diagnosis: (1) MATTHEW (acute kidney injury) Assessment & Plan: Appears to be due to Acute interstitial nephritis,with contrast exposure, prescribed prednisone, dose decreased yesterday, creatinine slightly worse today it is 3.05, yesterday was 2.8, previously been 3.1, monitor closely for worsening creatinine, consider renal biopsy, good urine output over 1.2 L, continue to encourage good oral intake (2) DKA (diabetic ketoacidosis) Assessment & Plan: Resolved, Has had episodes of DKA when his glucose is not well-controlled, he has pseudohyponatermia from the hyperglycemia, corrected sodium, is still low, treated with tolvaptan 2 days ago, sodium now 130, continue to eat and drink at will, recommend carbohydrate controlled diet while in the hospital ANANYA KING III, DO November 24, 2024 15:23
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
[2024-11-24 17:10] LABS: ATYPICAL PANCA <1:20 titer (Neg:<1:20); CYTOPLASMIC (C-ANCA) <1:20 titer (Neg:<1:20); PERINUCLEAR (P-ANCA) <1:20 titer (Neg:<1:20)
[2024-11-24 18:30] VITALS: BP 127/64; PULSE 97; RESP 17; TEMP 97.9; O2SAT 97
[2024-11-24 20:00] VITALS: RESP 16; O2SAT 97
[2024-11-24 22:00] VITALS: BP 110/44; PULSE 104; RESP 20; TEMP 98.3; O2SAT 99
[2024-11-25 06:00] VITALS: BP 148/84; PULSE 92; RESP 18; TEMP 97.8; O2SAT 98
[2024-11-25] MEDS: INSULIN LISPRO 100 UNIT/ML INSULN.PEN MULTI-DOSE SQ STA (07:47)
[2024-11-25 08:00] VITALS: RESP 15; O2SAT 97
[2024-11-25 10:00] VITALS: BP_SYST 117; BP_SYST 140; BP_DIAS 65; BP_DIAS 77; PULSE 102; PULSE 67; RESP 18; TEMP 97; TEMP 98.5; O2SAT 93; O2SAT 98
[2024-11-25 11:07] LABS: BASOPHILS # (AUTO) 0.1 X10'3 (0-0.2); BASOPHILS % (AUTO) 0.5 % (0-1); EOSINOPHILS % (AUTO) 0.3 % (0-6); HEMATOCRIT 24.6 % (42.0-52.0); HEMOGLOBIN 8.1 g/dl (14.0-17.9); LYMPHOCYTES # (AUTO) 1.1 X10'3 (1.1-4.8); LYMPHOCYTES % (AUTO) 8.4 % (21-51); MEAN CORPUSCULAR HEMOGLOBIN 28.2 PG (27.0-31.0); MEAN CORPUSCULAR HGB CONC 32.9 g/dL (33.0-36.5); MEAN CORPUSCULAR VOLUME 85.7 FL (78-98); MEAN PLATELET VOLUME 8.9 FL (7.4-10.4); MONOCYTES # (AUTO) 0.7 X10'3 (0-0.9); MONOCYTES % (AUTO) 4.9 % (2-12); NEUTROPHILS # (AUTO) 11.6 X10'3 (1.8-7.7); NEUTROPHILS % (AUTO) 85.9 % (42-75); PLATELET COUNT 407 X10'3 (140-440); RED BLOOD COUNT 2.88 X10'6 (4.70-6.10); RED CELL DISTRIBUTION WIDTH 17.8 % (11.5-14.5); WHITE BLOOD COUNT 13.5 X10'3 (4.5-11.0)
[2024-11-25 11:36] LABS: ALANINE AMINOTRANSFERASE 43 U/L (12-78); ALBUMIN 2.5 G/DL (3.4-5.0); ALBUMIN/GLOBULIN RATIO 0.8 (1.1-1.5); ALKALINE PHOSPHATASE 124 IU/L (46-116); ANION GAP 11 (8-16); ASPARTATE AMINO TRANSFERASE 31 U/L (10-37); BILIRUBIN,TOTAL 0.2 MG/DL (0.1-1.0); BLOOD UREA NITROGEN 97 MG/DL (7-18); CALCIUM 8.4 MG/DL (8.5-10.1); CHLORIDE 98 MMOL/L (99-107); CREATININE 3.03 MG/DL (0.60-1.10); GLUCOSE 264 MG/DL (70-104); POTASSIUM 5.5 MMOL/L (3.5-5.1); SODIUM 129 MMOL/L (135-145); TOTAL CARBON DIOXIDE 20.2 MMOL/L (24-32); TOTAL PROTEIN 5.8 G/DL (6.4-8.2); eCRCL 23 ML/MIN; eGFR 25 ML/MIN
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
--- NOTE | 2024-11-25 15:57 | PROGRESS NOTE ---
Progress Note ID Providers to CC ~ Progress Note Progress Note: Antibiotic Days: Vanco 13 Lines: Midline Micro: 11/10 Urine- Proteus 11/10 Blood- MRSA 11/13- Blood- negative 11/17 Urine- negative Subjective: Patient was having a lot of stump pain- noted that his stitches are still in Objective: Vitals: Afebrile, 102, 18, 117/77, 98% on RA General: Alert, NAD Resp: No conversational dyspnea Abd: Soft, nontender Ext: R AKA, incision is ok though stitches are still in Lines: Midline occlusively dressed Laboratory Tests 11/25/24 10:00 Assessment: // MRSA septicmeia. Valves ok on 2D echo. Repeats cleared 11/13 // MATTHEW, possible AIN per Nephro. On prednisone and Cr improving // R anterior tibial osteomyelitis s/p amputation // DM with diabetic gastroparesis // Hx CDI // Hx Herpes encephalitis // Antibiotic Allergies: none known Plan: - Almost done with renally adjusted Vanco- until 11/27 - Monitor WBC count/eos, Cr - Wound care, please remove stitches - Physical therapy - Will continue to follow YANETH JULES DO November 25, 2024 15:57
[2024-11-25] MEDS: SODIUM ZIRCONIUM CYCLOSILICATE 10 GM POWD.PACK PO SCH (16:35)
[2024-11-25 18:30] VITALS: BP 135/86; PULSE 94; RESP 16; TEMP 97.8; O2SAT 97
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
[2024-11-25 20:00] VITALS: RESP 16; O2SAT 96
[2024-11-25] MEDS: gabapentin 300mg capsule PO SCH (21:59)
[2024-11-25 22:00] VITALS: BP 124/74; PULSE 97; RESP 16; TEMP 97.7; O2SAT 96
[2024-11-25] MEDS: insulin glargine (Lantus) pen - multi-dose SQ SCH (22:00)
[2024-11-26] MEDS: diazepam inj 5 MG/ML inj. IV ONE (05:53)
[2024-11-26] MEDS: traMADol 50MG tablet PO ONE (05:55)
[2024-11-26] MEDS: LIDOcaine 5% patch TP ONE (05:56)
[2024-11-26 06:00] VITALS: BP 143/79; PULSE 64; RESP 17; TEMP 98.2; O2SAT 85
[2024-11-26 08:00] VITALS: RESP 17; O2SAT 96
[2024-11-26] MEDS: predniSONE 20 mg tablet PO SCH (08:05)
[2024-11-26 10:00] VITALS: BP 136/85; PULSE 95; RESP 16; TEMP 97.7; O2SAT 99
--- NOTE | 2024-11-26 17:00 | VASCULAR REPORT ---
Upper Extremity Venous Duplex Clinical History: Left upper extremity swelling. Comparison: None Technique: Duplex Doppler evaluation of the venous system of the left lower neck and upper extremity including c olor Doppler and spectral/pulsed waveform analysis was performed. Findings: The internal jugular vein demonstrates appropriate compressibility and waveform variability . Acute occlusive DVT seen surrounding the PICC line in distal subclavian and axillary veins. The brachial veins demonstrate appropriate compressibility and patency on Doppler evaluation. The radial vein shows doppler patency. The ulnar vein shows doppler patency. The basilic vein demonstrates appropriate compressibility and patency on Doppler evaluation. The cephalic vein demonstrates appropriate compressibility and patency on Doppler evaluation. Moderate subcutaneous edema noted in the arm. Impression: Acute occlusive DVT Surrounding PICC line in the left axillary and the adjacent subclavian vein. The findings were communicated with the nurse in charge of the patient upon completion of the exam by the blood bank laboratory technologist.
[2024-11-26] MEDS: ondansetron 4mg rapidly disintigrating tab PO ONE (17:27)
[2024-11-26] MEDS: oxyCODONE/APAP 10/325mg tablet PO PRN (17:27)
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
--- NOTE | 2024-11-26 18:20 | PROGRESS NOTE- Residence ---
Progress Note - Resident Providers to CC Resident Creating Document: MOISE MORFIN RES ~ Antibiotic Timeout Antibiotic Ordered?: Yes Subjective Interval history: I evaluated the patient today around 4:30 p.m. in the presence of correctional case records supervisor (Binta), charge nurse (Johana), and his primary nurse (Pedro). The patient was emotionally distressed and tearful but clearly denied any suicidal ideation, intent, or plan. He expressed a strong desire to live and emphasized that his health and treatment is a priority. He verbalized understanding of his medical condition and affirmed his willingness to stay in the hospital and to complete his treatment. He explicitly stated that he has no intent to harm himself and does not wish to leave against medical advice. The patient persistently requested IV morphine, stating that it would help with his anxiety and pain, though he could not clearly articulate a specific indication. We had a detailed, compassionate discussion exploring his concerns and treatment options. As a result, we offered to switch his pain regimen from [place] to Percocet, which he accepted. Therefore, Percocet 10 mg every 6 hours as needed was initiated. Given his clear inconsistent denied of self-harm in his cooperative behavior, the [address] precaution was removed. The current medical treatment plan we will continue, and the patient remains engaged and agreeable to care. Objective Vital Signs Date Time Temp Pulse Resp B/P (MAP) Pulse Ox O2 Delivery O2 Flow Rate FiO2 11/26/24 17:27 16 11/26/24 10:00 97.7 95 136/85 (102) 99 Room Air 11/24/24 20:00 0.0 21 Result Diagram: 11/25/24 1000 11/25/24 1000 Advance Care Planning Advanced Care plannin - 30 Minutes Date of Service: November 26, 2024 Billing Provider: ASHER JASSO MD, SHAMS, RES November 26, 2024 18:20 ASHER JASSO MD Dec 02, 2024 16:38
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
[2024-11-26 20:00] VITALS: RESP 19; O2SAT 98
[2024-11-26] MEDS: furosemide 40mg/4ml inj IV SCH (20:31)
[2024-11-26 22:00] VITALS: BP 148/94; PULSE 98; RESP 19; TEMP 98.1; O2SAT 99
[2024-11-26 23:41] LABS: BILIRUBIN,URINE NEGATIVE (Neg); CLARITY,URINE SLIGHTLY CLOUDY (Clear); COLOR,URINE YELLOW (Yellow); GLUCOSE, URINE NEGATIVE (Neg); KETONES,URINE NEGATIVE (Neg); LEUKOCYTE ESTERASE ,URINE SMALL (Neg); NITRITES, URINE NEGATIVE (Neg); OCCULT BLOOD,URINE SMALL (Neg); PROTEIN,URINE 100 mg/dl (Neg); UROBILINOGEN,URINE 0.2 E.U/dL (0.2-1.0)
[2024-11-26 23:54] LABS: UA COLLECTION TYPE NON-SPECIFIED
[2024-11-26 23:56] LABS: BACTERIA,URINE 1+ /HPF (Neg); RENAL CELLS, URINE FEW /HPF; SQUAMOUS EPITHELIAL CELL,UR FEW /LPF (FEW); TRANSITIONAL EPI CELLS,URINE FEW /HPF; WBC CLUMPS,URINE MODERATE /HPF (NEGATIVE); WBC,URINE 30-50 /HPF (0-4)
[2024-11-26 23:57] LABS: YEAST MODERATE /HPF (NEGATIVE)
[2024-11-27 06:00] VITALS: BP 127/76; PULSE 94; RESP 16; TEMP 97.5; O2SAT 99
[2024-11-27 06:30] LABS: BASOPHILS # (AUTO) 0.1 X10'3 (0-0.2); BASOPHILS % (AUTO) 1.3 % (0-1); EOSINOPHILS # (AUTO) 0.1 X10'3 (0-0.9); EOSINOPHILS % (AUTO) 1.2 % (0-6); HEMATOCRIT 24.4 % (42.0-52.0); HEMOGLOBIN 8.2 g/dl (14.0-17.9); LYMPHOCYTES # (AUTO) 2.5 X10'3 (1.1-4.8); LYMPHOCYTES % (AUTO) 24.5 % (21-51); MEAN CORPUSCULAR HEMOGLOBIN 28.9 PG (27.0-31.0); MEAN CORPUSCULAR HGB CONC 33.8 g/dL (33.0-36.5); MEAN CORPUSCULAR VOLUME 85.6 FL (78-98); MEAN PLATELET VOLUME 8.2 FL (7.4-10.4); MONOCYTES # (AUTO) 0.8 X10'3 (0-0.9); MONOCYTES % (AUTO) 7.7 % (2-12); NEUTROPHILS # (AUTO) 6.6 X10'3 (1.8-7.7); NEUTROPHILS % (AUTO) 65.3 % (42-75); PLATELET COUNT 472 X10'3 (140-440); RED BLOOD COUNT 2.85 X10'6 (4.70-6.10); RED CELL DISTRIBUTION WIDTH 17.3 % (11.5-14.5); WHITE BLOOD COUNT 10.2 X10'3 (4.5-11.0)
[2024-11-27 06:51] LABS: ALANINE AMINOTRANSFERASE 46 U/L (12-78); ALBUMIN 2.4 G/DL (3.4-5.0); ALBUMIN/GLOBULIN RATIO 0.7 (1.1-1.5); ALKALINE PHOSPHATASE 128 IU/L (46-116); ANION GAP 12 (8-16); ASPARTATE AMINO TRANSFERASE 58 U/L (10-37); BILIRUBIN,TOTAL 0.2 MG/DL (0.1-1.0); BLOOD UREA NITROGEN 99 MG/DL (7-18); BUN/CREATININE RATIO 33.7 (10.0-20.0); CALCIUM 8.1 MG/DL (8.5-10.1); CHLORIDE 97 MMOL/L (99-107); CREATININE 2.94 MG/DL (0.60-1.10); GLUCOSE 218 MG/DL (70-104); POTASSIUM 4.6 MMOL/L (3.5-5.1); SODIUM 131 MMOL/L (135-145); TOTAL CARBON DIOXIDE 22.3 MMOL/L (24-32); eCRCL 24 ML/MIN; eGFR 26 ML/MIN
[2024-11-27] MEDS: prednisone 10mg tablet PO SCH (07:44)
[2024-11-27] MEDS ORDERED: apixaban 2.5mg tablet PO SCH (08:00)
[2024-11-27] MEDS: apixaban 5mg tablet PO SCH (09:20)
[2024-11-27 10:00] VITALS: BP 121/79; PULSE 94; RESP 16; TEMP 97.4; O2SAT 100
[2024-11-27] MEDS ORDERED: gabapentin capsule PO (11:41)
[2024-11-27] MEDS: vancomycin/NS 1 GM ADD-VANTAGE 250 ML X 1 DOSE IV ONE (11:57)
[2024-11-27] MEDS: furosemide 40mg/4ml inj IV SCH (15:06)
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
[2024-11-27 18:00] VITALS: BP 137/77; PULSE 95; RESP 17; TEMP 97.4; O2SAT 95
[2024-11-27 20:00] VITALS: RESP 17; O2SAT 95
[2024-11-27] MEDS: gabapentin 300mg capsule PO SCH (20:40)
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
--- NOTE | 2024-11-27 23:21 | PROGRESS NOTE ---
Progress Note ID Providers to CC ~ Progress Note Progress Note: Antibiotic Days: Vanco 15 Lines: Midline Micro: 11/10 Urine- Proteus 11/10 Blood- MRSA 11/13- Blood- negative 11/17 Urine- negative Subjective: Patient is finished with his Vanc today which is fortunate as his line now has a clot. I was informed by nursing that patient removed his own stitches with a butter knife yesterday Objective: Vitals: Afebrile, 94, 16, 127/76, 99% on RA General: Alert, NAD Resp: Nonlabored Abd: Soft, nontender Ext: R AKA; L arm swollen Lines: Midline occlusively dressed Laboratory Tests 11/27/24 06:03 11/26 US Acute occlusive DVT Surrounding PICC line in the left axillary and the adjacent subclavian vein. Assessment: // MRSA septicmeia. Valves ok on 2D echo. Repeats cleared 11/13 and he has completed 2 weeks of therapy // MATTHEW, possible AIN per Nephro. On prednisone and Cr improving // L arm DVT // R anterior tibial osteomyelitis s/p amputation. His sutures were in for too long but he pulled them himself with a butterknife // DM with diabetic gastroparesis // Hx CDI // Hx Herpes encephalitis // Antibiotic Allergies: none known Plan: - DC Vanco - DC line YANETH JULES DO November 27, 2024 23:21
[2024-11-28 06:37] VITALS: BP 139/73; PULSE 79; RESP 14; TEMP 98.5; O2SAT 97
[2024-11-28 07:21] VITALS: BP_SYST 139; PULSE 79
[2024-11-28 07:41] LABS: ALANINE AMINOTRANSFERASE 47 U/L (12-78); ALBUMIN 2.4 G/DL (3.4-5.0); ALBUMIN/GLOBULIN RATIO 0.7 (1.1-1.5); ALKALINE PHOSPHATASE 113 IU/L (46-116); ANION GAP 11 (8-16); ASPARTATE AMINO TRANSFERASE 40 U/L (10-37); BILIRUBIN,TOTAL 0.2 MG/DL (0.1-1.0); BLOOD UREA NITROGEN 100 MG/DL (7-18); BUN/CREATININE RATIO 32.5 (10.0-20.0); CALCIUM 8.3 MG/DL (8.5-10.1); CHLORIDE 100 MMOL/L (99-107); CREATININE 3.08 MG/DL (0.60-1.10); GLUCOSE 153 MG/DL (70-104); POTASSIUM 4.6 MMOL/L (3.5-5.1); SODIUM 135 MMOL/L (135-145); TOTAL CARBON DIOXIDE 23.8 MMOL/L (24-32); eCRCL 23 ML/MIN; eGFR 25 ML/MIN
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
[2024-11-28] MEDS ORDERED: INSULIN LISPRO 100 UNIT/ML INSULN.PEN MULTI-DOSE SQ SCH (18:00)
[2024-11-28] MEDS ORDERED: insulin glargine (Lantus) pen - multi-dose SQ SCH (21:00)
== END 2024-11-28 15:00 | disposition left against medical advice (07) | DRG 720 ==
LOC: ER 13:08 → ED HOLD 11-11 00:32 → EDBEDREQ 11-11 05:09 → PCU 3S 11-11 05:39 → SUR 3N 11-18 13:32
PROVIDERS: ADMIT Internal Medicine Critical Care Medicine; ATTEND Family Medicine
PROC: 02HV33Z Insertion of Infusion Device into Superior Vena Cava, Percutaneous Approach (ICD-10-PCS; 2024-11-10)
PROC: B548ZZA Ultrasonography of Superior Vena Cava, Guidance (ICD-10-PCS; 2024-11-10)
PROC: 0DB68ZX Excision of Stomach, Via Natural or Artificial Opening Endoscopic, Diagnostic (ICD-10-PCS; 2024-11-10)
PROC: 30233N1 Transfusion of Nonautologous Red Blood Cells into Peripheral Vein, Percutaneous Approach (ICD-10-PCS; 2024-11-11)
PROC: 05HA33Z Insertion of Infusion Device into Left Brachial Vein, Percutaneous Approach (ICD-10-PCS; principal; 2024-11-18)
PROC: B54NZZA Ultrasonography of Left Upper Extremity Veins, Guidance (ICD-10-PCS; 2024-11-18)
DX: A41.02 Sepsis due to Methicillin resistant Staphylococcus aureus (principal); J69.0 Pneumonitis due to inhalation of food and vomit; G93.41 Metabolic encephalopathy; E10.10 Type 1 diabetes mellitus with ketoacidosis without coma; E44.0 Moderate protein-calorie malnutrition; E22.2 Syndrome of inappropriate secretion of antidiuretic hormone; E10.51 Type 1 diabetes mellitus with diabetic peripheral angiopathy without gangrene; K29.71 Gastritis, unspecified, with bleeding; E87.3 Alkalosis; N17.9 Acute kidney failure, unspecified; E83.39 Other disorders of phosphorus metabolism; E83.51 Hypocalcemia; J45.909 Unspecified asthma, uncomplicated; E87.5 Hyperkalemia; E86.0 Dehydration; D64.9 Anemia, unspecified; D75.839 Thrombocytosis, unspecified; Y95 Nosocomial condition; B96.4 Proteus (mirabilis) (morganii) as the cause of diseases classified elsewhere; F11.10 Opioid abuse, uncomplicated; G93.89 Other specified disorders of brain; N10 Acute pyelonephritis; I12.9 Hypertensive chronic kidney disease with stage 1 through stage 4 chronic kidney disease, or unspecified chronic kidney disease; E10.22 Type 1 diabetes mellitus with diabetic chronic kidney disease; N18.30 Chronic kidney disease, stage 3 unspecified; Z53.29 Procedure and treatment not carried out because of patient's decision for other reasons; Z89.611 Acquired absence of right leg above knee; Z79.899 Other long term (current) drug therapy; Z68.1 Body mass index [BMI] 19.9 or less, adult; Z91.148 Patient's other noncompliance with medication regimen for other reason
CPT/HCPCS: 36410; 36415; 36556; 43239; 70450; 71045; 71250; 74176; 76942; 80048; 80053; 80061; 80202; 80305; 81001; 82024; 82088; 82310; 82570; 82595; 82728; 82784; 82800; 82810; 82948; 83036; 83540; 83550; 83605; 83690; 83735; 83930; 83935; 83970; 84100; 84145; 84156; 84295; 84300; 84443; 84466; 84484; 85025; 85027; 86038; 86060; 86160; 86256; 86334; 86703; 86803; 86885; 86900; 86901; 86920; 87040; 87077; 87081; 87088; 87186; 87207; 87340; 87522; 93005; 93306; 93971; 94640; 94760; 97116; 97161; 97530; 97760; 99291; 99292; A6213; A6250; A6258; A6402; A6449; A6590; A7015; C1751; G0378; J0330; J0360; J0456; J0610; J0696; J1171; J1815; J1940; J2003; J2250; J2270; J2405; J2470; J2543; J2704; J3010; J3360; J3370; J3490; J7030; J7040; J7050; J7070; J7120; J7512; P9016

== ENCOUNTER 2024-12-07 12:27 | Emergency (ER) | payer MEDICAID ==
[~2024-12-07] VITALS: Ht 170.2 cm; Wt 52.0 kg
[~2024-12-07 12:27] MED LIST changes: +BLOO-1084; +LANC-509; +gabapentin capsule PO; -pantoprazole 40 MG vial IV ONE
[2024-12-07 15:31] LABS: ALBUMIN 2.6 G/DL (3.4-5.0); ANION GAP 7 (8-16); BLOOD UREA NITROGEN 46 MG/DL (7-18); BUN/CREATININE RATIO 14.7 (10.0-20.0); CALCIUM 8.4 MG/DL (8.5-10.1); CHLORIDE 105 MMOL/L (99-107); CREATININE 3.13 MG/DL (0.60-1.10); GLUCOSE 216 MG/DL (70-104); LIPASE 14 U/L (16-77); MAGNESIUM 2.4 MG/DL (1.5-2.4); POTASSIUM 5.1 MMOL/L (3.5-5.1); SODIUM 138 MMOL/L (135-145); TOTAL CARBON DIOXIDE 25.8 MMOL/L (24-32); eCRCL 27 ML/MIN; eGFR 24 ML/MIN
[2024-12-07 15:40] LABS: BASOPHILS # (AUTO) 0.1 X10'3 (0-0.2); BASOPHILS % (AUTO) 0.7 % (0-1); EOSINOPHILS # (AUTO) 0.1 X10'3 (0-0.9); EOSINOPHILS % (AUTO) 1.9 % (0-6); HEMATOCRIT 29.9 % (42.0-52.0); HEMOGLOBIN 9.8 g/dl (14.0-17.9); LYMPHOCYTES # (AUTO) 2.2 X10'3 (1.1-4.8); LYMPHOCYTES % (AUTO) 29.3 % (21-51); MEAN CORPUSCULAR HGB CONC 32.9 g/dL (33.0-36.5); MEAN CORPUSCULAR VOLUME 88.2 FL (78-98); MEAN PLATELET VOLUME 8.2 FL (7.4-10.4); MONOCYTES # (AUTO) 0.4 X10'3 (0-0.9); MONOCYTES % (AUTO) 5.7 % (2-12); NEUTROPHILS # (AUTO) 4.7 X10'3 (1.8-7.7); NEUTROPHILS % (AUTO) 62.4 % (42-75); PLATELET COUNT 280 X10'3 (140-440); RED BLOOD COUNT 3.39 X10'6 (4.70-6.10); RED CELL DISTRIBUTION WIDTH 17.9 % (11.5-14.5); WHITE BLOOD COUNT 7.6 X10'3 (4.5-11.0)
--- NOTE | 2024-12-07 16:10 | Physician Documentation ---
History of Present Illness ~ Chief Complaint: Hyperglycemia Stated Complaint: DIABETIC ISSUES Time Seen by MD: 14:50 Primary Medical Doctor: Dr. Luke [facility] 24-year-old type 1 diabetic, poorly controlled with CKD presents to the emergency department reporting that he is on housed, overheated, unable to take care of himself. Medication Reconciliation Allergies: Coded Allergies: No Known Allergies (Unverified , 11/10/24) Scheduled Insulin Glargine,Hum.rec.anlog* (Lantus*), 38 UNITS SQ HS, (Reported) Insulin Lispro* (Humalog*), 0 SQ SLIDING SCALE, (Reported) [gabapentin capsule], 300 MG PO QPM Scheduled PRN Ondansetron 8mg ODT (Ondansetron Odt), 1 TAB PO TID PRN for nausea/vomiting Miscellaneous Medications Blood Sugar Diagnostic (Freestyle Lite Test Strips), (Reported) Durable Medical Equipment Lancets (Freestyle Lancets), (Reported), (DME) Past Medical History Past Medical History: Asthma, *RENAL/*, *ENDOCRINE*, Diabetes, *PSYCH* Past Surgical History: no surgical history Other Past Family History: NONCONTRIBUTORY Alcohol Use: None Drug Use: marijuana, methamphetamine Lives with: Family Lives In: Home Occupation: student Review of Systems ROS As stated above in the HPI, otherwise all systems are reviewed and negative. Physical Exam Vital Signs: Heart Rate: 68, Respiratory Rate: 20, BP: 114/55, Pulse Oximetry: 97, Weight: 52.000 Physical Exam General: Alert, no apparent distress. Chronically ill appearing and thin. Neck: Full range of motion. Respiratory: Lungs clear, no respiratory distress. Chest: No accessory muscle use. Cardiovascular: Regular rate and rhythm, no murmurs. Gastrointestinal: Soft, nontender, nondistended. Bowels sounds present. Extremities: Normal range of motion, no deformity. Neurologic: Oriented x4. Psychiatric: Normal mood and affect. Skin: Normal color, warm and dry. No edema, no ecchymosis. Progress Results/Orders Results/Orders Orders - JOCELYN PARIKH BARGAIN TABLE CLERK Accucheck (12/07/24 14:56) Accucheck (12/07/24 15:56) Accucheck (12/07/24 16:56) * Iv Access / Saline Lock * (12/07/24 15:34) Newspaper Illustrator (12/07/24 17:29) * Miscellaneous Nursing Orders (12/07/24 18:01) Completed Orders - JOCELYN PARIKH NP Cbc/Diff (12/07/24 14:56) MG (12/07/24 14:56) BMP (12/07/24 14:56) Lipase (12/07/24 14:56) Normal Saline 1000ml (Sodium Chloride 10 (12/07/24 15:35) Vital Signs 12/07/24 12:34 Pulse 68 Resp 20 B/P (MAP) 114/55 Pulse Ox 97 Laboratory Tests Test 12/07/24 15:05 12/07/24 15:12 Glucometer 196 H White Blood Count 7.6 Red Blood Count 3.39 L Hemoglobin 9.8 L Hematocrit 29.9 L Mean Corpuscular Volume 88.2 Mean Corpuscular Hemoglobin 29.0 Mean Corpuscular Hemoglobin Concent 32.9 L Red Cell Distribution Width 17.9 H Platelet Count 280 Mean Platelet Volume 8.2 Neutrophils (%) (Auto) 62.4 Lymphocytes (%) (Auto) 29.3 Monocytes (%) (Auto) 5.7 Eosinophils (%) (Auto) 1.9 Basophils (%) (Auto) 0.7 Neutrophils # (Auto) 4.7 Lymphocytes # (Auto) 2.2 Monocytes # (Auto) 0.4 Eosinophils # (Auto) 0.1 Basophils # (Auto) 0.1 CBC Comment Sodium Level 138 Potassium Level 5.1 Chloride Level 105 Carbon Dioxide Level 25.8 Anion Gap 7 L Blood Urea Nitrogen 46 H Creatinine 3.13 H Estimated GFR/1.73 m2 24 BUN/Creatinine Ratio 14.7 Glucose Level 216 H Calcium Level 8.4 L Magnesium Level 2.4 Albumin 2.6 L Lipase 14 L Chemistry Comments Departure Time of Disposition: 18:02 Disposition: 01 HOME / SELF CARE / HOMELESS Impression: Primary Impression: Hyperglycemia Additional Impression: Diabetes mellitus Condition: Stable Discharge Instructions: Hyperglycemia, [id number] Additional Instructions: Your labs are at your baseline and there is not a reason found to keep you in the hospital. We are filing an APS report today in an attempt to help find you placement/housing. We are providing you with some options of where there are "cooling stations" in town that you may go when it is particularly hot. We kept you in the ER for more than four hours and gave you IV hydration. Referrals: NO PRIMARY CARE PROVIDER (PCP) Education Educated: Patient Educated regarding: diagnosis, treatment, prognosis, need for follow up Signature Scribe Signature: no scribe Attestation: The note accurately reflects work and decisions made by me.Jocelyn Thomas NP 12/07/24 16:13 JOCELYN PARIKH NP Dec 07, 2024 16:10
[2024-12-07] MEDS: normal saline 1000ml 1,000 ML IV ONE (18:28)
[2024-12-07 19:58] VITALS: BP 135/80; PULSE 97; RESP 16; O2SAT 99
== END 2024-12-07 20:01 | disposition home or self-care (01) ==
LOC: ER 12:27
DX: E10.65 Type 1 diabetes mellitus with hyperglycemia (principal); E10.22 Type 1 diabetes mellitus with diabetic chronic kidney disease; N18.9 Chronic kidney disease, unspecified; J45.909 Unspecified asthma, uncomplicated; F12.90 Cannabis use, unspecified, uncomplicated; F15.90 Other stimulant use, unspecified, uncomplicated; Z79.4 Long term (current) use of insulin
CPT/HCPCS: 36415; 80048; 82948; 83690; 83735; 85025; 96360; 99284; J7030